=== PATIENT | female | born 1965 | race African-American/Black ===

== ENCOUNTER 2017-09-23 14:15 | Emergency (ER) | payer MEDICARE, MEDICAID ==
[2017-09-23 15:48] LABS: Hemoglobin 13.7 g/dL (12.0-16.0); Mean Corpuscular HGB CONC 29.2 g/dL (32.0-36.0); Mean Corpuscular Hemoglobin 27.2 pg (27.0-31.0); Mean Corpuscular Volume 93.1 fl (81.0-99.0); Mean Platelet Volume 8.1 fL (7.4-10.4); Platelet Count 237 thou/uL (130-400); RBC Distribution Width 15.2 % (11.5-14.5); Red Blood Cell (RBC) Count 5.03 mill/uL (4.20-5.40); White Blood Cell (WBC) Count 10.2 thou/uL (4.8-10.8)
[2017-09-23 16:06] LABS: Anisocytosis SLIGHT = 6-15 cells (100X) (0-5/hpf); Band 25 % (5-11); Lymphocytes 12 % (21-51); MDiff Complete? YES; Monocytes 9 % (0-10); Neutrophil 51 % (42-75); Ovalocytes SLIGHT = 2-5 cells (100X) (0-1/hpf); PLT Morphology Comment Appears Adequate; Polychromasia SLIGHT = 2-3 cells (100X) (0-2/hpf); Reactive Lymphocytes 3 % (0-10)
[2017-09-23 16:18] LABS: CKMB 2.5 ng/mL (0-6.6); Troponin I 0.041 ng/mL (< 0.028)
--- NOTE | 2017-09-23 16:31 | RAD ---
PORTABLE CHEST ONE VIEW: 09/23/2017 2:56 p.m. HISTORY: Dyspnea. COMPARISON: 03/01/2016 FINDINGS: The heart is enlarged. Chronic changes are again seen bilaterally. No lobar consolidation, pneumoth oraces, or large effusions are seen. Superimposed pulmonary vascular congestion may be present. POS: [facility]
[2017-09-23 16:38] LABS: ALT (SGPT) 11 U/L (8-55); AST (SGOT) 21 U/L (5-34); Albumin 4.1 g/dL (3.5-5.0); Alkaline Phosphatase 92 U/L (40-150); Anion Gap 17 mmol/L (10-20); BUN (Urea Nitrogen) 17 mg/dL (7.0-18.7); Bilirubin, Total 0.4 mg/dL (0.2-1.2); CK (CPK) 47 U/L (29-168); Calc. Creatinine Clearance 0 mL/min (70-130); Carbon Dioxide 31 mmol/L (22-29); Chloride 97 mmol/L (98-107); Estimated GFR-MDRD Greater than 90; Globulin 4.2 g/dL (2.4-3.5); Glucose 145 mg/dL (70-105); Potassium 4.8 mmol/L (3.5-5.1); Protein, Total 8.3 g/dL (6.0-8.3); Sodium 140 mmol/L (136-145)
== END 2017-09-23 17:36 | disposition home or self-care (01) ==
LOC: ERS 14:15
DX: D86.9 Sarcoidosis, unspecified (principal); I10 Essential (primary) hypertension; F41.9 Anxiety disorder, unspecified; F32.9 Major depressive disorder, single episode, unspecified
CPT/HCPCS: 71010; 80053; 82553; 83605; 84484; 85025; 87040; 93005; 94640; 94760; J7620

== ENCOUNTER 2017-09-25 14:22 | Inpatient (IN) | payer MEDICARE, MEDICAID ==
[2017-09-25] MEDS ORDERED: Albuterol Sulfate 2.5 mg/0.5 ml Neb ONE ×3 (14:38)
[2017-09-25] MEDS ORDERED: Albuterol Sulfate 2.5 mg/3 ml Neb ONE (14:39)
[2017-09-25 15:12] LABS: Hemoglobin 13.9 g/dL (12.0-16.0); INR-International Normal Ratio 1.3; Mean Corpuscular HGB CONC 29.1 g/dL (32.0-36.0); Mean Corpuscular Hemoglobin 27.2 pg (27.0-31.0); Mean Corpuscular Volume 93.6 fl (81.0-99.0); Mean Platelet Volume 8.4 fL (7.4-10.4); PTT 32.5 SEC (22.9-36.1); Platelet Count 274 thou/uL (130-400); Prothrombin Time 16.3 SEC (12.0-14.7); RBC Distribution Width 15.2 % (11.5-14.5); White Blood Cell (WBC) Count 22.3 thou/uL (4.8-10.8)
--- NOTE | 2017-09-25 15:14 | RAD ---
CHEST ONE VIEW: HISTORY: Respiratory distress. COMPARISON: Chest one view from 09/23/2017. FINDINGS: There are worsening diffuse air space opacities. There appears to be some cystic change or cavitatio n in the right upper lobe. No large pneumothorax. The cardiac silhouette is blurred. IMPRESSION: Worsening air space opacities throughout the lungs with possible cavitation in the right upper lobe. CT of the chest with contrast recommended. POS: [facility]
[2017-09-25 15:27] LABS: ALT (SGPT) 10 U/L (8-55); AST (SGOT) 18 U/L (5-34); Albumin 3.7 g/dL (3.5-5.0); Alkaline Phosphatase 82 U/L (40-150); Anion Gap 14 mmol/L (10-20); Anisocytosis SLIGHT = 6-15 cells (100X) (0-5/hpf); BUN (Urea Nitrogen) 24 mg/dL (7.0-18.7); Band 26 % (5-11); Bilirubin, Total 0.7 mg/dL (0.2-1.2); CK (CPK) 107 U/L (29-168); Calc. Creatinine Clearance 0 mL/min (70-130); Calcium 9.9 mg/dL (7.8-10.44); Carbon Dioxide 35 mmol/L (22-29); Chloride 98 mmol/L (98-107); Estimated GFR-MDRD 82; Globulin 4.4 g/dL (2.4-3.5); Glucose 188 mg/dL (70-105); Lipase 9 U/L (8-78); Lymphocytes 6 % (21-51); MDiff Complete? YES; Magnesium 2.1 mg/dL (1.6-2.6); Metamyelocyte 3 % (0-0); Monocytes 4 % (0-10); Neutrophil 53 % (42-75); Ovalocytes SLIGHT = 2-5 cells (100X) (0-1/hpf); PLT Morphology Comment Appears Adequate; Polychromasia SLIGHT = 2-3 cells (100X) (0-2/hpf); Potassium 4.3 mmol/L (3.5-5.1); Protein, Total 8.1 g/dL (6.0-8.3); Reactive Lymphocytes 8 % (0-10); Sodium 143 mmol/L (136-145); Target Cells SLIGHT = 2-5 cells (100X) (0-1/hpf)
[2017-09-25] MEDS ORDERED: methylPREDNISolone Sod Succ/PF 125 MG/2 ML VIAL ONE (15:29)
[2017-09-25] MEDS ORDERED: Sterile Water 10 ML ONE (15:30)
[2017-09-25 15:31] LABS: CKMB 3.7 ng/mL (0-6.6); Troponin I 0.045 ng/mL (< 0.028)
[2017-09-25 15:32] LABS: Digoxin 0.25 ng/mL (0.8-2.0)
[2017-09-25] MEDS ORDERED: FENTANYL IV SCH (16:00)
[2017-09-25] MEDS ORDERED: SODIUM CHLORIDE 0.9% IV SCH (16:00)
[2017-09-25 16:13] LABS: Actual Bicarbonate (HCO3a) 37.3 mEq/L (22-26); Base Excess (BEa) 7.3 mEq/L (0 (+/-) 2.5); Calcium, Ionized 1.2 mmol/L (1.12-1.30); Hematocrit-ABG 44.3 % (36.0-47.0); Hemoglobin (Hb) 12.7 g/dL (12.0-16.0); O2 Tension (PaO2) 54.2 mmHg (80.0-100.0); pH, Arterial 7.26 (7.35-7.45)
[2017-09-25 16:14] LABS: Analyzer IN Cardio ER; CO2 Tension 85.6 mmHg (35.0-45.0); Puncture Site RRA
[2017-09-25 16:23] LABS: Blood, Urine Trace (Negative); Clarity CLOUDY (Clear); Glucose, Urine (Dipstick) Negative (Negative); Leukocyte Trace (Negative); Nitrite Negative (Negative); Specific Gravity, Urine 1.035 (1.002-1.036)
[2017-09-25 16:27] LABS: Bacteria/HPF None Seen HPF (None Seen); WBC/HPF 0-3 HPF (0-3)
[2017-09-25] MEDS ORDERED: Cefepime 2 GM/10 ML SYR ONE (16:29)
[2017-09-25 16:30] LABS: Pathc Cast-AUWi Flag 5.55 (0-2.49)
[2017-09-25 16:39] LABS: Protein, Urine (Dipstick) > or equal to 300 mg/dL (Neg-Trace)
[2017-09-25 16:40] LABS: Bilirubin Moderate (Negative); Hyaline Casts/LPF 7-10 HYALINE CAST LPF (0-3 Hyaline); Other Casts/LPF 0-3 COARSE GRAN LPF (0-3 Hyaline)
[2017-09-25 16:41] LABS: Renal Epithelial 0-3 HPF (0-3); Transitional Epithelial 0-3 HPF (0-3)
[2017-09-25] MEDS ORDERED: Cefepime 2 GM, Syringe 2.5 ML in Sterile Water 10 ML SLOW IVP SCH (16:45)
[2017-09-25 17:22] LABS: Actual Bicarbonate (HCO3a) 32.5 mEq/L (22-26); Base Excess (BEa) 6.1 mEq/L (0 (+/-) 2.5); CO2 Tension 54.9 mmHg (35.0-45.0); Calcium, Ionized 1.1 mmol/L (1.12-1.30); Hematocrit-ABG 43.3 % (36.0-47.0); Hemoglobin (Hb) 12.7 g/dL (12.0-16.0); pH, Arterial 7.39 (7.35-7.45)
[2017-09-25 17:23] LABS: ALV-art Gradient 211.375 (0-20); Analyzer IN Cardio ER; Puncture Site RBA
[2017-09-25] MEDS ORDERED: Ondansetron ODT 4 MG TAB PO PRN (17:33)
[2017-09-25] MEDS ORDERED: Calcium Carbonate 500 MG ChewTAB PO PRN (17:33)
[2017-09-25] MEDS ORDERED: Acetaminophen 325 MG TAB PO PRN (17:33)
[2017-09-25] MEDS ORDERED: Labetalol HCl 100 MG/20 ML VIAL SLOW IVP PRN (17:39)
[2017-09-25] MEDS ORDERED: Sedation Protocol FS SCH (17:43)
[2017-09-25 18:03] LABS: Troponin I 0.063 ng/mL (< 0.028)
--- NOTE | 2017-09-25 18:46 | RAD ---
RADIOGRAPH ABDOMEN 1 VIEW: DATE: 09/25/17 TIME: 4:10 p.m. HISTORY: 51-year-old female status post NG tube placement. FINDINGS: The distal portion of an NG tube is visualized in the left upper quadrant, probably in the proximal t o mid stomach. Nonspecific bowel gas pattern. IMPRESSION: NG tube distal tip in left upper quadrant. POS: [facility]
[2017-09-25] MEDS ORDERED: DISCONTINUE PREVIOUS NARCOTIC PAIN MEDICATIONS AND BENZODIAZEPINES FS SCH (19:11)
[2017-09-25] MEDS ORDERED: Morphine 2 MG/ML SYRINGE SLOW IVP PRN (19:11)
[2017-09-25] MEDS: Piperacillin/Tazobactam 3.375 GM in Sodium Chloride 0.9% 100 ML IVPB SCH (19:29)
[2017-09-25] MEDS: Vancomycin HCl 1 GM in Premix Bag 1 BAG IVPB SCH (19:39)
--- NOTE | 2017-09-25 20:57 | RAD ---
ONE VIEW CHEST: 09/25/17 HISTORY: Status post line placement. COMPARISON: 09/25/17. FINDINGS: Portable upright chest demonstrates interval placement of endotracheal and nasogastric tubes. Interva l placement of right sided jugular catheter which is presumed to be in the expected region of the sup erior vena cava. Pneumothorax is not appreciated. Stable configuration of the cardiac silhouette. Sta ble multifocal opacities. No pneumothorax. IMPRESSION: 1. Lines and tubes as above. 2. Stable parenchymal opacities. No pneumothorax. POS: [facility]
[2017-09-25] MEDS: Sodium Chloride 0.9% 1,000 ML IV SCH (22:47)
[2017-09-25] MEDS: Propofol 1,000 MG/100 ML VIAL IV PRN (22:47)
--- NOTE | 2017-09-26 00:56 | HP-2 ---
CODE STATUS: FULL CODE. PRIMARY CARE PHYSICIAN: [facility]. ATTENDING: Helder Tian MD RESIDENT: Foster Moreno MD HISTORIAN: Patient's family and ER doctor. SPECIALIST: Dr. Rudy Beltran, Pulmonology. CHIEF COMPLAINT: Shortness of breath and cough. HISTORY OF PRESENT ILLNESS: This is a 51-year-old female with past medical history of sarcoidosis, diastolic CHF, and pulmonary hypertension who presented initially with shortness of breath and difficulty breathing. Patient was brought into the EMS after being alerted by family for difficulty breathing, received 3 nebs on route to the ER; if no improvement was noted, patient was tried on BiPAP in the ER with no improvement and was ultimately intubated by Dr. Cornelius admission. Patient received cefepime, Solu-Medrol, and Levaquin in the ER. PAST MEDICAL HISTORY: 1. Sarcoidosis. 2. Pulmonary hypertension. 3. Diastolic congestive heart failure (EF 55% to 60%). 4. Morbid obesity. 5. Anxiety. 6. Depression. 7. Chronic kidney disease, stage 2. PAST SURGICAL HISTORY: 1. x3. 2. Bilateral tubal ligation. 3. D and C x1. ALLERGIES: LISINOPRIL, CODEINE, BENZONATATE. MEDICATIONS: 1. Metformin 500 mg. 2. Depo-Medrol. 3. Digoxin 125 mcg. 4. Spironolactone 25 mg. 5. Tadalafil 20 mg b.i.d. 6. Prednisone 10 mg daily. 7. Macitentan 10 mg daily. 8. Losartan/hydrochlorothiazide 160/12.5 mg half tab daily. 9. Symbicort 160/4.5 two puffs daily. 10. Lasix 40 mg b.i.d. FAMILY HISTORY: Significant for sister with sarcoidosis. SOCIAL HISTORY: Denies tobacco, alcohol, or drug use. REVIEW OF SYSTEMS: Unable to obtain due to patient being intubated. PHYSICAL EXAMINATION: VITAL SIGNS: Blood pressure 155/99, pulse 112, respiratory rate 16, T-max 98.5 , pulse ox 96% on ventilation at SIMV mode. GENERAL: Patient is sedated and intubated, obese. HEENT: Pupils are equal, round, and reactive to light. Extraocular movements are unable to be assessed. Conjunctivae within normal limits. Oropharynx was unable to assess due to patient's status. NECK: Supple, without lymphadenopathy. CARDIOVASCULAR: The patient has tachycardic with regular rhythm. No murmurs appreciated. Radial pulses and pedal pulses are present. RESPIRATORY: The patient is ventilated. Bilateral rhonchi are noted with expiratory wheezes bilaterally. SKIN: Warm and dry without cyanosis. ABDOMEN: Soft and bowel sounds are present, however, unable to assess tenderness. EXTREMITIES: No clubbing, cyanosis, or edema is appreciated. MUSCULOSKELETAL: Structure within normal limits. Unable to assess tone, strength, and range of motion. NEUROLOGIC: Unable to assess neurologic status. Pupils are reactive. PSYCHIATRIC: The patient is sedated at this time. LABORATORY AND DIAGNOSTIC DATA: 1. CBC: White count 22.3, hemoglobin 13.9, hematocrit 37.8, platelets 274. 2. CMP: Sodium 143, potassium 4.3, chloride 98, bicarbonate 35, BUN 24, creatinine 0.9, calcium 9.9. 3. AST 18, ALT 10, alkaline phosphatase 82, total protein 8.1, albumin 3.7, T- bili 0.7. 4. PT 16.3, PTT 32.5. INR 1.3. 5. Lactate 1.8. 6. Magnesium 2.1. 7. Dig level 0.25. 8. CK 107, CK-MB 2.7, troponin 0.045, lipase 9, BNP 151. 9. Urinalysis shows trace blood, greater than 300 protein, trace leukocyte esterase, 15 ketones, 4-6 red cells, 0-3 white cells. 10. ABGs, pH of 7.68, pCO2 of 85, pO2 of 54, bicarbonate 37 on SIMV mode. 11. Chest x-ray shows worsening airspace opacities, possible right upper lobe cavitation. ASSESSMENT AND PLAN: This is a 51-year-old female presenting with shortness of breath. 1. Acute hypoxic and hypercarbic respiratory failure. We will admit to CCU. The patient intubated and we will continue sedation protocol and consult pump for management. Recommendations continue cap coverage with vancomycin and Zosyn at this time. We will check blood cultures and urine cultures. Continue DuoNebs scheduled as well as Solu-Medrol. 2. Pneumonia. Continue antibiotics following blood cultures, pulmonary was consulted, appreciate their recommendations to trend CBC and give light IV fluids at this time. 3. Sarcoidosis. We will continue Solu-Medrol and home medications once tolerating p.o. 4. Diastolic congestive heart failure. We will check an echocardiogram that has been a few years since her last one. Monitor fluids closely for respiratory status. 5. Chronic kidney disease. The patient is currently at baseline. Continue to monitor. 6. Elevated troponin, likely secondary to demand ischemia given the patient's tachycardia. Trending cardiac enzymes. Recheck EKG in the morning. 7. Anxiety, depression. Continue sedation protocol for now. Resume home medications once more awake. 8. Prophylaxis. PPI and Lovenox. DISPOSITION AND LENGTH OF HOSPITAL STAY: At least 3 midnights. Symptomatic medications will be provided. History and physical exam as well as management were discussed with Dr. Tian. AWILDA
[2017-09-26] MEDS: Piperacillin/Tazobactam 3.375 GM in Sodium Chloride 0.9% 100 ML IVPB SCH ×3 (01:54→13:39)
[2017-09-26] MEDS: Propofol 1,000 MG/100 ML VIAL IV PRN ×4 (04:09→22:10)
[2017-09-26] MEDS: Sodium Chloride 0.9% 1,000 ML IV SCH ×2 (04:18→15:26)
[2017-09-26 04:37] LABS: ALT (SGPT) 8 U/L (8-55); AST (SGOT) 12 U/L (5-34); Albumin 2.8 g/dL (3.5-5.0); Alkaline Phosphatase 58 U/L (40-150); Anion Gap 13 mmol/L (10-20); BUN (Urea Nitrogen) 33 mg/dL (7.0-18.7); Bilirubin, Total 0.7 mg/dL (0.2-1.2); Calc. Creatinine Clearance 92 mL/min (70-130); Calcium 9.2 mg/dL (7.8-10.44); Carbon Dioxide 34 mmol/L (22-29); Chloride 102 mmol/L (98-107); Estimated GFR-MDRD 60; Globulin 3.6 g/dL (2.4-3.5); Glucose 185 mg/dL (70-105); Protein, Total 6.4 g/dL (6.0-8.3); Sodium 145 mmol/L (136-145)
[2017-09-26 05:11] LABS: Band 15 % (5-11); Hemoglobin 11.3 g/dL (12.0-16.0); Lymphocytes 10 % (21-51); MDiff Complete? YES; Mean Corpuscular HGB CONC 29.9 g/dL (32.0-36.0); Mean Corpuscular Hemoglobin 27.5 pg (27.0-31.0); Mean Corpuscular Volume 91.9 fl (81.0-99.0); Mean Platelet Volume 7.9 fL (7.4-10.4); Metamyelocyte 1 % (0-0); Monocytes 6 % (0-10); Neutrophil 67 % (42-75); Nucleated RBC 1 % (0); PLT Morphology Comment Appears Adequate; Platelet Count 241 thou/uL (130-400); RBC Distribution Width 14.7 % (11.5-14.5); Reactive Lymphocytes 1 % (0-10); Red Blood Cell (RBC) Count 4.13 mill/uL (4.20-5.40); White Blood Cell (WBC) Count 17.3 thou/uL (4.8-10.8)
--- NOTE | 2017-09-26 06:02 | CON ---
DATE OF CONSULTATION: 09/25/2017 HISTORY OF PRESENT ILLNESS: Ms. Mc is a 51-year-old female. She was seen in the emergency dep artment on 09/24/2017 with complaints of shortness of breath. She is chronically on oxygen at home. She was discharged with diagnosis of sarcoid exacerbation, prescribed nebulizer medicine. She has been seen by my associate in the past. Chest radiograph was done on the . I reviewed this film and thought maybe there were some more i nfiltrative changes on the right. She subsequently presented back on the (today) with more shortness of breath, put on BiPAP, and w as subsequently intubated. Chest radiograph shows progression of bilateral infiltrates in my opinion. PAST MEDICAL HISTORY: 1. Remarkable for sarcoid. 2. Pulmonary hypertension. 3. Diabetes. 4. Chronic kidney disease. 5. History of diastolic dysfunction. 6. History of obesity. 7. Cor pulmonale felt to be secondary to her advanced sarcoid. According to Dr. Beltran's notes in 2014, she had been referred down to [facility] for transplant evaluation . When I saw her back in in the hospital, she could walk only about 30 feet without getting short of breath. She has not been hospitalized since then per reviewing records. PAST SURGICAL HISTORY: She has had three C-sections and tubal ligation as well as a D and C. FAMILY HISTORY: Remarkable for sister also with sarcoid. SOCIAL HISTORY: She is nonsmoker, nondrinker, nondrug user. ALLERGIES: Reported to LISINOPRIL, CODEINE, and TESSALON PERLES. MEDICATIONS: Have been reviewed. REVIEW OF SYSTEMS: Not obtainable because she is intubated. There is no family in the room when I e valuated there. PHYSICAL EXAMINATION: VITAL SIGNS: She is afebrile, heart rates in the 90s. Blood pressure 118/70, respiratory rate is in the 20s. Oximetry is 98%. HEENT: Pupils equally react. Sclerae is anicteric. Extraocular movements are full. NECK: Supple. LUNGS: Remarkable for distant breath sounds. She has a long expiratory phase. HEART: Regular rhythm. S1 and S2 are normal. No gallops heard. ABDOMEN: Soft, without guarding, rigidity. EXTREMITIES: Without asymmetry. LABORATORY DATA: Chest radiograph is as reviewed above. White count 22.3, hemoglobin 13.9, platelet s 274. Sodium 143, potassium 4.3, chloride 98, bicarbonate 35, BUN 24, creatinine 0.8. Blood gas 7. 26, CO2 of 85, pO2 of 54 after intubation, 7.39, CO2 of 54, pO2 81. IMPRESSION: 1. Advanced sarcoidosis with interstitial fibrosis and pulmonary hypertension. 2. Probable community-acquired pneumonia on top of her sarcoid. 3. Bronchospasm/reactive airways associated with this which has aggravated and increased work of jamilah athing. The ventilator had to be adjusted to a higher flow to shortened her inspiratory time to allo w for complete exhalation. I suspect she will remain ventilated for several days if not longer. I will meet with the family as soon as they are available. Critical care time 35 minutes.
--- NOTE | 2017-09-26 07:18 | PDOC.FM ---
- Subjective Subjective: Pt seen at bedside in NAD, no family at bedside. Intubated and sedated. LUCIANO overnight. Pt responds to commands. - Objective MAR Reviewed: Yes Vital Signs & Weight: Vital Signs (12 hours) Temp Pulse Resp Pulse Ox 09/26/17 06:00 22 H 09/26/17 04:00 98.5 F 22 H 09/26/17 02:06 80 09/26/17 02:05 80 22 H 96 09/26/17 00:00 98.2 F 22 H 09/25/17 22:32 91 09/25/17 22:29 94 22 H 97 09/25/17 20:00 98.8 F 91 22 H 98 09/25/17 19:53 89 Most Recent Monitor Data Heart Rate from ECG 71 NIBP 110/65 NIBP BP-Mean 76 Respiration from ECG 22 SpO2 94 I&O: 09/25/17 09/26/17 09/27/17 06:59 06:59 06:59 Intake Total 1280 Output Total 355 Balance 925 Result Diagrams: 09/26/17 03:30 09/26/17 03:30 Phys Exam - Physical Examination Constitutional: NAD intubated and sedated HEENT: PERRLA Respiratory: wheezing present scant wheezing, coarse breath sounds BL Cardiovascular: RRR, no significant murmur Gastrointestinal: soft, positive bowel sounds Musculoskeletal: pulses present Neurological: non-focal GCS11 ([id number]) Dx/Plan (1) Acute on chronic respiratory failure with hypoxia and hypercapnia Code(s): J96.21 - ACUTE AND CHRONIC RESPIRATORY FAILURE WITH HYPOXIA; J96.22 - ACUTE AND CHRONIC RESPIRATORY FAILURE WITH HYPERCAPNIA Status: Acute Plan: -pt has long standing hx of end stage sarcoidosis and presented to ER with complaints of cough and SOB -initially was tolerated bipap but eventually required intubation -pulmonology on board, recs greatly appreciated -currently on SIMV rate 22, fio2 55, peep 8 -continue to monitor closely (2) CAP (community acquired pneumonia) Code(s): J18.9 - PNEUMONIA, UNSPECIFIED ORGANISM Status: Acute Qualifiers: Laterality: right Lung location: upper lobe of lung Qualified Code(s): J18.1 - Lobar pneumonia, unspecified organism Plan: -RUL PNA on CXR -continue broad spectrum abx and attempt to deescalate therapy -urine strep pneumoniae Ag negative -continue to monitor and trend CBC -await blood and urine culture results (3) MICHEL (acute kidney injury) Code(s): N17.9 - ACUTE KIDNEY FAILURE, UNSPECIFIED Status: Acute Plan: -likely prerenal secondary to hypovolemia -UOP 15-45cc/hr -with poor UOP, bolus 1L and continue to monitor (4) Sarcoidosis Code(s): D86.9 - SARCOIDOSIS, UNSPECIFIED Status: Chronic (5) Pulmonary hypertension associated with sarcoidosis Code(s): I27.29 - OTHER SECONDARY PULMONARY HYPERTENSION; D86.9 - SARCOIDOSIS, UNSPECIFIED Status: Chronic - Plan Plan: dispo: Pt stable. Pulmonology recs greatly appreciated. Treating for CAP with broad abx. Await culture results and deescalate when possible. Continue to monitor closely.
--- NOTE | 2017-09-26 07:44 | PRG ---
DATE OF SERVICE: 09/26/2017 SUBJECTIVE: The patient remains mechanically ventilated. OBJECTIVE: VITAL SIGNS: Blood pressure 108/66, heart rate 76, respiratory rate 22, oximetry is 96. CHEST: Bilateral equal breath sounds. Faint wheezes are heard. HEART: Regular rhythm. S1 and S2 are normal. ABDOMEN: Soft. EXTREMITIES: Without asymmetry. LABORATORY DATA AND X-RAY FINDINGS: White count 17.3, hemoglobin 11.3, platelets 241,000. Sodium 14 5, potassium 4, chloride 102, bicarbonate 34, BUN 32, creatinine 1.16, glucose 185. Chest x-ray is b eing done. As I dictate this, I will review her radiograph. Blood gas is also pending. IMPRESSION: 1. Community-acquired pneumonia. 2. Underlying sarcoidosis, which is advanced with pulmonary fibrosis and chronic hypoxemia. 3. Acute respiratory failure on top of chronic respiratory failure and chronic hypoxemia requiring h ome oxygen. 4. Anemia of chronic disease. 5. Prerenal azotemia that has improved. Her fluid balance is positive 965. PLAN: Continue mechanical ventilation and empiric antimicrobial therapy. Deescalate antibiotics as she improves. Continue with deep venous thrombosis prophylaxis with Lovenox and place her on Pepcid, now she is mechanically ventilated. Critical care time was 30 minutes.
[2017-09-26] MEDS: Famotidine/PF 20 mg/2ml Vial SLOW IVP SCH ×2 (08:34→19:59)
[2017-09-26] MEDS: Vancomycin HCl 1 GM in Premix Bag 1 BAG IVPB SCH ×2 (08:34→20:02)
[2017-09-26 08:38] LABS: Actual Bicarbonate (HCO3a) 32.1 mEq/L (22-26); Base Excess (BEa) 6.8 mEq/L (0 (+/-) 2.5); CO2 Tension 49.4 mmHg (35.0-45.0); Calcium, Ionized 1.2 mmol/L (1.12-1.30); Hematocrit-ABG 39.6 % (36.0-47.0); Hemoglobin (Hb) 11.4 g/dL (12.0-16.0); O2 Tension (PaO2) 84.3 mmHg (80.0-100.0); pH, Arterial 7.43 (7.35-7.45)
--- NOTE | 2017-09-26 08:38 | RAD ---
PORTABLE CHEST: History: Respiratory distress. Comparison: Prior day's exam. FINDINGS: Endotracheal and NG tubes as well as right sided central line are unchanged in position. Interstitial alveolar lung changes are stable. Heart size is enlarged. IMPRESSION: Stable exam. POS: [facility]
[2017-09-26 08:39] LABS: Puncture Site RR
[2017-09-26] MEDS ORDERED: Enoxaparin Sodium 40 MG/0.4 ML SYRINGE SC SCH (09:00)
[2017-09-26] MEDS ORDERED: FLU VACC QS2017-18 36 mo. & older 0.5 ML SYRINGE IM ONE (09:00)
[2017-09-26 09:02] LABS: Strep pneumo Urine Ag NEGATIVE (NEGATIVE)
[2017-09-26] MEDS ORDERED: Dextrose 5% in Water 1,000 ML IV PRN (09:10)
[2017-09-26] MEDS ORDERED: Insulin Regular 300 UNITS/3 ML VIAL SC PRN (09:10)
[2017-09-26] MEDS ORDERED: Sodium Chloride 0.9% 1,000 ML IV SCH (09:15)
[2017-09-26] MEDS: HumaLOG 300 UNITS/3 ML VIAL SC PRN ×2 (10:21→16:22)
--- NOTE | 2017-09-26 10:35 | PRG ---
DATE OF SERVICE: 09/26/2017 SUBJECTIVE: Ms. Mc is a pleasant 51-year-old black female with a long history of sarcoidosis. She has been seen in our ER several days ago with shortness of breath and was sent home on prescribe d nebulizer medication. She returned on 09/25/2017 with progressive shortness of breath. She was in itially placed on BiPAP and subsequently intubated and admitted to the Intensive Care Unit. She is a lso being followed by the solidworks designer for her sarcoidosis and intubation with mechanical ventilation. She also has pulmonary hypertension related to her sarcoidosis. She possibly has a community-acquired pneumonia on top of her sarcoidosis and is also being treated w ith antibiotics. We will follow with the solidworks designer.
[2017-09-26] MEDS: Piperacillin-Tazo-Dextrose,Iso 3.375 GM in Premix Bag 1 BAG IVPB SCH ×2 (13:42→20:02)
[2017-09-26] MEDS: Heparin 5,000 UNITS/ML VIAL SC SCH ×2 (15:20→19:59)
[2017-09-27] MEDS: Sodium Chloride 0.9% 1,000 ML IV SCH ×3 (00:12→21:14)
[2017-09-27] MEDS: Piperacillin-Tazo-Dextrose,Iso 3.375 GM in Premix Bag 1 BAG IVPB SCH ×4 (02:05→20:36)
[2017-09-27 05:01] LABS: #Basophils 0.1 thou/uL (0.0-0.2); #Lymphocytes 0.9 thou/uL (1.20-3.40); #Monocytes 0.7 thou/uL (0.11-0.59); #Neutrophils 12.4 thou/uL (1.40-6.50); %Basophils 0.5 % (0.0-1.0); %Eosinophils 0.1 % (0.0-10.0); %Lymphocytes 6.2 % (21.0-51.0); %Monocytes 5.2 % (0.0-10.0); Hemoglobin 10.6 g/dL (12.0-16.0); Mean Corpuscular HGB CONC 30.6 g/dL (32.0-36.0); Mean Corpuscular Hemoglobin 27.8 pg (27.0-31.0); Mean Corpuscular Volume 90.7 fl (81.0-99.0); Mean Platelet Volume 8.4 fL (7.4-10.4); Platelet Count 263 thou/uL (130-400); RBC Distribution Width 14.9 % (11.5-14.5); Red Blood Cell (RBC) Count 3.83 mill/uL (4.20-5.40); White Blood Cell (WBC) Count 14.1 thou/uL (4.8-10.8)
[2017-09-27 05:21] LABS: Anion Gap 13 mmol/L (10-20); BUN (Urea Nitrogen) 35 mg/dL (7.0-18.7); Calc. Creatinine Clearance 85 mL/min (70-130); Calcium 9.1 mg/dL (7.8-10.44); Carbon Dioxide 30 mmol/L (22-29); Chloride 105 mmol/L (98-107); Estimated GFR-MDRD 55; Glucose 126 mg/dL (70-105); Potassium 3.2 mmol/L (3.5-5.1); Sodium 145 mmol/L (136-145)
[2017-09-27] MEDS ORDERED: ISOVUE-370 76%-LOCM 1 ML ONE (06:13)
[2017-09-27] MEDS: Propofol 1,000 MG/100 ML VIAL IV PRN ×3 (06:41→18:05)
[2017-09-27 07:23] LABS: Actual Bicarbonate (HCO3a) 28.5 mEq/L (22-26); Base Excess (BEa) 4.5 mEq/L (0 (+/-) 2.5); CO2 Tension 40.6 mmHg (35.0-45.0); Calcium, Ionized 1.2 mmol/L (1.12-1.30); Hemoglobin (Hb) 10.1 g/dL (12.0-16.0); O2 Tension (PaO2) 80.8 mmHg (80.0-100.0); pH, Arterial 7.47 (7.35-7.45)
[2017-09-27 07:37] LABS: Puncture Site RR
[2017-09-27] MEDS: Heparin 5,000 UNITS/ML VIAL SC SCH ×3 (08:06→20:41)
--- NOTE | 2017-09-27 08:18 | RAD ---
PORTABLE UPRIGHT FRONTAL CHEST RADIOGRAPH: Date: 09-27-17 Comparison: 09-26-17 History: Ventilated patient. FINDINGS: There is an endotracheal tube in stable proper position, terminating approximately 2 cm above the car roberto. There is a stable right sided vascular catheter. There is mass like focal opacity noted in bilat eral perihilar regions, stable. There is interstitial and alveolar opacity in bilateral perihilar reg ions, right greater than left, nonspecific. IMPRESSION: Persistent mass like opacity in bilateral perihilar regions. Etiology is uncertain. This may represen t infectious pneumonitis/aspiration. Underlying lymphadenopathy and/or mass lesion is not excluded. C T examination of the chest advised when the patient is able for full assessment. All findings may be on the basis of patient's history of sarcoidosis. POS: [facility]
[2017-09-27 08:20] LABS: Vancomycin, Trough 20.4 ug/mL
[2017-09-27] MEDS: Famotidine/PF 20 mg/2ml Vial SLOW IVP SCH (10:25)
[2017-09-27] MEDS ORDERED: Famotidine 40 MG/4 ML VIAL SLOW IVP SCH (10:30)
[2017-09-27] MEDS: Vancomycin HCl 1 GM in Premix Bag 1 BAG IVPB SCH ×2 (10:41→21:13)
--- NOTE | 2017-09-27 11:34 | PDOC.FM ---
- Subjective Subjective: Patient intubated. She is requesting extubation. She acknowledges some LLQ belly pain. - Objective MAR Reviewed: Yes Vital Signs & Weight: Vital Signs (12 hours) Temp Pulse Resp BP Pulse Ox 09/27/17 11:11 72 129/75 09/27/17 10:00 22 H 09/27/17 08:00 99.3 F 22 H 09/27/17 07:53 99.3 F 104 H 22 H 99 09/27/17 07:17 90 112/62 09/27/17 06:00 22 H 09/27/17 04:00 98.2 F 22 H 09/27/17 02:31 76 09/27/17 02:30 89 22 H 99 09/27/17 02:00 22 H 09/27/17 00:00 98.9 F 09/26/17 23:44 59 L 09/26/17 23:36 22 H Weight Admit Weight 99.337 kg Weight 99.7 kg Most Recent Monitor Data Heart Rate from ECG 70 NIBP 129/75 NIBP BP-Mean 94 Respiration from ECG 22 SpO2 99 I&O: 09/26/17 09/27/17 09/28/17 06:59 06:59 06:59 Intake Total 1280 3066.2 0 Output Total 355 1186 316 Balance 925 1880.2 -316 Result Diagrams: 09/27/17 03:30 09/27/17 03:30 Phys Exam - Physical Examination Constitutional: NAD diffuse wheezing Cardiovascular: RRR, no significant murmur distended and firm, hypoactive BS, mildly tender in LLQ Musculoskeletal: no edema Neurological: moves all 4 limbs Skin: cap refill <2 seconds Dx/Plan (1) Acute on chronic respiratory failure with hypoxia and hypercapnia Code(s): J96.21 - ACUTE AND CHRONIC RESPIRATORY FAILURE WITH HYPOXIA; J96.22 - ACUTE AND CHRONIC RESPIRATORY FAILURE WITH HYPERCAPNIA Status: Chronic Plan: 2/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 question if ABX can be deescalated today to CAP coverage with rocephin and zithromax or levaquin alone. ABG improved, will await pulm recs for extubation. (2) CAP (community acquired pneumonia) Code(s): J18.9 - PNEUMONIA, UNSPECIFIED ORGANISM Status: Acute Qualifiers: Laterality: right Lung location: upper lobe of lung Qualified Code(s): J18.1 - Lobar pneumonia, unspecified organism Plan: possible deescalate abx to CAP coverage. Discuss with pulm (3) MICHEL (acute kidney injury) Code(s): N17.9 - ACUTE KIDNEY FAILURE, UNSPECIFIED Status: Acute Plan: Will bolus 500 ml today and repeat bmp in AM. adequate UOP (40 ml/hr yesterday) . (4) Pulmonary hypertension associated with sarcoidosis Code(s): I27.29 - OTHER SECONDARY PULMONARY HYPERTENSION; D86.9 - SARCOIDOSIS, UNSPECIFIED Status: Chronic (5) Hypertension Code(s): I10 - ESSENTIAL (PRIMARY) HYPERTENSION Status: Chronic Plan: well controlled. (6) Sarcoidosis Code(s): D86.9 - SARCOIDOSIS, UNSPECIFIED Status: Chronic
[2017-09-27] MEDS ORDERED: Potassium Chloride 40 MEQ in Premix Bag 1 BAG IVPB SCH (12:30)
[2017-09-27] MEDS ORDERED: Sodium Chloride 0.9% 500 ML IV SCH (12:30)
--- NOTE | 2017-09-27 12:39 | ADD-PRG ---
DATE OF SERVICE: 09/27/2017 This is an addendum to the note of Dr. Anabel Wallace. Ms. Mc is on the ventilator. She is awake and alert. She appears to be in no distress, but he r abdomen appears quite distended. It is tympanic, but minimally tender. No guarding or rebound are noted. Her labs this morning continued to show improvement. Sodium is 145, potassium is 3.2, chloride 105, bicarbonate is 30, BUN is 35, creatinine 1.26. Blood glucose is 126. CBC: White count has dropped to 14,000 from 22,000. Her hemoglobin is 10.6, hematocrit is 34.7 with an MCV of 91. Her vital signs remain stable. Clinically, she seems to be doing well except for the abdominal distention. We will get a flat plate upright of the abdomen. Depending on the findings on results, we may consider a CT of the abdomen.
--- NOTE | 2017-09-27 13:31 | RAD ---
SUPINE FRONTAL RADIOGRAPH ABDOMEN: DATE: 09/27/17. COMPARISON: 09/25/17. HISTORY: Abdominal distention, left lower quadrant tenderness, hypoactive bowel sounds. FINDINGS: There is gas throughout bowel within the abdomen and pelvis, likely representing a combination of gas within the stomach, small bowel, and large bowel. Supine imaging limits assessment for small bowel obstruction and free intraperitoneal air. There is a nasogastric tube terminating in the right upper quadrant. IMPRESSION: Mild diffuse gaseous distention of bowel throughout the abdomen/pelvis, a pattern most consistent wit h a degree of ileus. POS: [facility]
[2017-09-27] MEDS: Lorazepam 2 MG/ML VIAL SLOW IVP PRN (20:42)
[2017-09-27] MEDS: Famotidine 40 MG/4 ML VIAL SLOW IVP SCH (21:09)
[2017-09-27] MEDS: Ondansetron HCl/PF 4 MG/2 ML Vial IVP PRN (22:00)
--- NOTE | 2017-09-27 23:18 | PRG ---
DATE OF SERVICE: 09/27/2017 OBJECITVE: VITAL SIGNS: Ms. Mc is afebrile, heart rate is 81, blood pressure 132/93 this evening. Intake and output for the last 24 hours is positive 1880. LUNGS: Coarse equal breath sounds. HEART: Regular rhythm. ABDOMEN: Soft. EXTREMITIES: Without asymmetry. LABORATORY DATA: White count 14.1, hemoglobin 10.6, platelets 263,000. Sodium 145, potassium 3.2, c hloride 105, bicarbonate 30, BUN 35, creatinine 1.26, pH 7.47, CO2 of 40, PO2 of 80. Chest radiograp h reviewed by me shows predominantly right upper lobe infiltrate. IMPRESSION: 1. Pneumonia, community acquired. 2. Underlying interstitial lung disease secondary to old sarcoidosis. 3. 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 4. Respiratory failure, not weanable at this time. I interacted with her today. She moves all her extremities and I explained to her that she will probably be ventilated for a few days and she nodded that she understood. 5. Pulmonary hypertension secondary to advanced lung disease. 6. Diabetes. 7. Chronic kidney disease. 8. History of diastolic dysfunction. 9. Obesity. 10. History of a transplant evaluation in the past. PLAN: Continue supportive care with slow weaning. We will need to keep her hydrated from a renal st andpoint but watch for evidence of pulmonary third spacing. At this point in time, she appears to be stable. Critical care time was 30 minutes.
--- NOTE | 2017-09-27 23:59 | CT ---
EXAM: ABDOMEN CT WITH CONTRAST PELVIC CT WITH CONTRAST 09/27/17 HISTORY: Abnormal abdomen radiograph. Possible bowel obstruction or ileus. COMPARISON: None. CORRELATION: One view abdomen 09/27/17. TECHNIQUE: An abdomen and pelvic CT are performed with IV contrast. Enteric contrast was not administered. Coron al reformatted images are submitted for interpretation. FINDINGS: ABDOMEN CT: There are patchy opacities which may represent bilateral lower lobe atelectasis or infiltrate. Heart is enlarged. There is no significant pericardial fluid. The descending thoracic aorta and abdominal a ammy have a normal caliber. No periaortic fat stranding. CT evidence of cholelithiasis. There may be mild induration of the pericholecystic fat. Correlate cli nically for cholecystitis with gallbladder ultrasound. Limited evaluation of solid organs, despite ad ministering IV contrast. There is suboptimal enhancement of the solid organs despite administering IV contrast. There is suboptimal enhancement of the solid organs. Beam attenuation artifact with the pa tient's arms at his side also limits evaluation. Grossly, the liver is unremarkable. Mild lobulation of the spleen, nonspecific. Mild pancreatic atrophy. Symmetric enhancement of the kidneys and adrenal glands. Bilaterally, no obstructive uropathy. Nonspecific periportal lymph node measuring 1.8 cm. No gastrohepatic or retrocrural lymphadenopathy. No mesenteric mass, free air or free fluid. There is a ventral abdominal wall hernia containing mesen teric fat. Limited evaluation of the alimentary canal due to lack of oral contrast. Nasogastric tube terminates in the proximal stomach. There are multiple decompressed loops of small bowel. No evidence of small b owel obstruction. Ileocecal junction is normal. Appendix is not appreciated. Nevertheless, no inflamm ation at the cecal apex. There is predominantly fluid attenuation and air throughout the colon. The c ecum, ascending colon and transverse colon have the majority of the air. The majority of the fluid is noted in the right hemicolon. There is also some fluid attenuation in the left hemicolon. The degree of air attenuation in the left hemicolon is less and is presumed to be due to patient position. Ther e is a small amount of air attenuation in the proximal sigmoid colon. Mid to distal sigmoid colon are decompressed. Air is noted in the rectum. PELVIC CT: Uterus and adnexal structures are unremarkable. there is a small amount of free fluid in the pelvis. Urinary bladder is decompressed due to Dahl catheterization. IMPRESSION: 1. No evidence of bowel obstruction. 2. Nonspecific air attenuation noted in the colon which may be due to patient position. There is components of air and fluid throughout the entire colon. The left hemicolon is decompressed and is p resumed to be due to patient position with air predominantly in the transverse colon which is a nonde pendent portion of the colon while the patient is supine. 3. CT evidence of cholelithiasis with findings that are equivocal for cholecystitis. Gallbladder ultrasound is recommended. 4. Nonspecific lobulation of the spleen. 5. Patchy opacities in the lung parenchyma which may be due to atelectasis or infiltrate. Contin ued radiographic surveillance is recommended. POS: TEJ
[2017-09-28] MEDS: Scopolamine 1.5 mg/72 hour Patch TD SCH (00:15)
[2017-09-28] MEDS: Propofol 1,000 MG/100 ML VIAL IV PRN ×5 (00:16→18:31)
[2017-09-28] MEDS: Piperacillin-Tazo-Dextrose,Iso 3.375 GM in Premix Bag 1 BAG IVPB SCH ×4 (01:35→20:09)
[2017-09-28 05:58] LABS: #Basophils 0.1 thou/uL (0.0-0.2); #Lymphocytes 1.6 thou/uL (1.20-3.40); #Monocytes 0.7 thou/uL (0.11-0.59); #Neutrophils 8.5 thou/uL (1.40-6.50); %Basophils 0.9 % (0.0-1.0); %Eosinophils 0.1 % (0.0-10.0); %Lymphocytes 14.3 % (21.0-51.0); %Monocytes 6.5 % (0.0-10.0); %Neutrophils 78.2 % (42.0-75.0); Hemoglobin 10.4 g/dL (12.0-16.0); Mean Corpuscular HGB CONC 30.6 g/dL (32.0-36.0); Mean Corpuscular Hemoglobin 27.7 pg (27.0-31.0); Mean Corpuscular Volume 90.5 fl (81.0-99.0); Mean Platelet Volume 8.1 fL (7.4-10.4); Platelet Count 257 thou/uL (130-400); RBC Distribution Width 14.9 % (11.5-14.5); Red Blood Cell (RBC) Count 3.74 mill/uL (4.20-5.40); White Blood Cell (WBC) Count 10.9 thou/uL (4.8-10.8)
[2017-09-28 06:19] LABS: Anion Gap 13 mmol/L (10-20); BUN (Urea Nitrogen) 27 mg/dL (7.0-18.7); Calc. Creatinine Clearance 107 mL/min (70-130); Calcium 8.9 mg/dL (7.8-10.44); Carbon Dioxide 27 mmol/L (22-29); Chloride 108 mmol/L (98-107); Estimated GFR-MDRD 70; Glucose 87 mg/dL (70-105); Potassium 3.2 mmol/L (3.5-5.1); Sodium 145 mmol/L (136-145)
[2017-09-28] MEDS: Sodium Chloride 0.9% 1,000 ML IV SCH ×2 (07:01→16:55)
[2017-09-28 07:19] LABS: Actual Bicarbonate (HCO3a) 27.8 mEq/L (22-26); Base Excess (BEa) 1.7 mEq/L (0 (+/-) 2.5); CO2 Tension 50.6 mmHg (35.0-45.0); Calcium, Ionized 1.2 mmol/L (1.12-1.30); Hematocrit-ABG 34.5 % (36.0-47.0); Hemoglobin (Hb) 10.2 g/dL (12.0-16.0); O2 Tension (PaO2) 62.7 mmHg (80.0-100.0); Puncture Site RRA; pH, Arterial 7.36 (7.35-7.45)
--- NOTE | 2017-09-28 08:50 | RAD ---
PORTABLE AP CHEST: Date: 09-28-17 History: On ventilated. Follow up evaluation. Comparison: 09-27-17 FINDINGS: Endotracheal tube and right internal jugular central venous catheters remain in place. There has been interval placement of a nasogastric tube which overlies the left upper quadrant, the distal tip is n ot completely imaged but likely overlies the body of the stomach. Mass like opacities are again seen in the perihilar regions bilaterally, larger in size on the right. Stable from the prior exam. Previo usly noted interstitial and alveolar opacity in the bilateral hilar regions is also again present, mo re prominent on the right. Stable biapical pleural based densities are also again present. Given diff erences in technique, there has been no significant additional interval change from the prior study. IMPRESSION: 1. Interval placement of a nasogastric tube. The remaining lines and tubes are stable in position. 2. Remainder of the chest is overall stable when compared to prior study with persistent mass like op acities in the bilateral perihilar regions as well as increased interstitial and alveolar densities g reater in the right upper lobe, with stable pleural based densities in each lung apex. CT examination would be helpful for further evaluation assessment. POS: TEJ
[2017-09-28] MEDS: Vancomycin HCl 1 GM in Premix Bag 1 BAG IVPB SCH (09:01)
[2017-09-28] MEDS: Heparin 5,000 UNITS/ML VIAL SC SCH ×3 (09:02→20:10)
[2017-09-28] MEDS: Famotidine 40 MG/4 ML VIAL SLOW IVP SCH ×2 (09:02→20:10)
--- NOTE | 2017-09-28 11:26 | PDOC.FM ---
- Subjective Subjective: Patient intubated and resting this morning. She did vomit overnight apparently and a CT performed overnight with air through colon. - Objective MAR Reviewed: Yes Vital Signs & Weight: Vital Signs (12 hours) Temp Pulse Resp BP Pulse Ox 09/28/17 10:58 73 107/67 09/28/17 10:00 22 H 09/28/17 08:23 75 113/72 09/28/17 08:00 22 H 09/28/17 07:01 98.9 F 69 22 H 97 09/28/17 07:00 98.9 F 09/28/17 06:00 22 H 09/28/17 04:00 98.9 F 22 H 09/28/17 02:07 74 09/28/17 02:06 68 22 H 98 09/28/17 02:00 22 H 09/28/17 00:00 99.5 F 22 H Weight Admit Weight 99.337 kg Weight 102 kg Most Recent Monitor Data Heart Rate from ECG 76 NIBP 122/76 NIBP BP-Mean 84 Respiration from ECG 22 SpO2 97 I&O: 09/27/17 09/28/17 09/29/17 06:59 06:59 06:59 Intake Total 3066.2 3435 Output Total 1186 2341 426 Balance 1880.2 1094 -426 Result Diagrams: 09/28/17 05:10 09/28/17 05:10 Phys Exam - Physical Examination Constitutional: NAD diffuse wheezing throughout lung samayoa Cardiovascular: RRR, no significant murmur Gastrointestinal: soft, non-tender distended with hypoactive bowel sounds Musculoskeletal: no edema Neurological: non-focal, moves all 4 limbs Psychiatric: normal affect Dx/Plan (1) Acute on chronic respiratory failure with hypoxia and hypercapnia Code(s): J96.21 - ACUTE AND CHRONIC RESPIRATORY FAILURE WITH HYPOXIA; J96.22 - ACUTE AND CHRONIC RESPIRATORY FAILURE WITH HYPERCAPNIA Status: Chronic Plan: 2/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 (2) CAP (community acquired pneumonia) Code(s): J18.9 - PNEUMONIA, UNSPECIFIED ORGANISM Status: Acute Qualifiers: Laterality: right Lung location: upper lobe of lung Qualified Code(s): J18.1 - Lobar pneumonia, unspecified organism Plan: recommend abx to either levaquin or rocephin and zithromax. wean off vent per pulm. (3) MICHEL (acute kidney injury) Code(s): N17.9 - ACUTE KIDNEY FAILURE, UNSPECIFIED Status: Resolved (4) Pulmonary hypertension associated with sarcoidosis Code(s): I27.29 - OTHER SECONDARY PULMONARY HYPERTENSION; D86.9 - SARCOIDOSIS, UNSPECIFIED Status: Chronic (5) Hypertension Code(s): I10 - ESSENTIAL (PRIMARY) HYPERTENSION Status: Chronic Plan: well controlled. (6) Sarcoidosis Code(s): D86.9 - SARCOIDOSIS, UNSPECIFIED Status: Chronic (7) Ileus Code(s): K56.7 - ILEUS, UNSPECIFIED Status: Acute Plan: cont to monitor. (8) Hypokalemia Code(s): E87.6 - HYPOKALEMIA Status: Acute Plan: replete
[2017-09-28] MEDS ORDERED: Potassium Chloride 40 MEQ in Premix Bag 1 BAG IVPB SCH (11:45)
--- NOTE | 2017-09-28 12:03 | ADD-PRG ---
DATE OF SERVICE: 09/28/2017 This is an addendum to the note of Dr. Anabel Wallace. Ms. Mc is still on the ventilator, but resting comfortably. Her abdomen seems less distended a nd a CT of the abdomen done yesterday did not reveal evidence of obstruction. She states she is not having any abdominal pain. NG tube has been reintroduced. Her white count has dropped to 10,900, he moglobin 10.4, hematocrit 33.8. Chemistries: Sodium is 145, potassium 3.2, chloride 108, bicarbonat e 27, BUN 27, creatinine 1.02. Chest x-ray shows no significant change from her previous. Clinically, she seems to be the same to m ildly improved. We will continue with mechanical ventilation and follow with the inseminator. Crescencio ej antibiotics for presumed pneumonia.
[2017-09-28] MEDS: Metoclopramide HCl 10 MG/2 ML VIAL IVP SCH ×2 (12:21→17:08)
[2017-09-28] MEDS ORDERED: Dextrose 50% Abboject 50 ML SYRINGE ONE (12:30)
--- NOTE | 2017-09-28 12:40 | PRG ---
DATE OF SERVICE: 09/28/2017 Ms. Mc awakens. She nods she is in no distress. PHYSICAL EXAMINATION: VITAL SIGNS: Heart rate 72. Blood pressure 107/67, respiratory rate 20. Oximetry is 97. LUNGS: Remarkable for coarse equal breath sounds. CARDIOVASCULAR: Regular rhythm. ABDOMEN: Slightly distended. EXTREMITIES: With asymmetry. LABORATORY DATA: White count 10.9, hemoglobin 10.4, platelets 257. Her bandemia has resolved. Sodium 145, potassium 3.2, chloride 108, bicarb 27, BUN 27, creatinine 1.02. PH 7.36, CO2 50, PO2 62. Chest radiograph shows stable bilateral infiltrates. IMPRESSION: 1. Underlying pulmonary fibrosis secondary to past sarcoidosis. 2. Pneumonia. 3. 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 4. Obesity. 5. Deconditioning. Several years ago Dr. Beltran noted she could only walk 30 feet without running out of breath. I doubt she will be weanable in the next few days. Continue with current supportive care measures. Microbiology has been reviewed. There are no positive cultures. Vancomycin can be discontinued. There is no evidence that this is MRSA. It is reasonable to continue her Zosyn and her IV steroids as well as her nebulizer treatments. Critical care time 35 min. AWILDA
[2017-09-28] MEDS ORDERED: PROVENTIL INHALER 6.7 G (200 INHALATIONS) INH PRN (18:23)
[2017-09-28] MEDS ORDERED: Mometasone/Formoterol 120 PUFF INHALER INH SCH (19:15)
[2017-09-28] MEDS: Lorazepam 2 MG/ML VIAL SLOW IVP PRN (19:45)
[2017-09-28] MEDS: Ondansetron HCl/PF 4 MG/2 ML Vial IVP PRN (20:09)
[2017-09-28] MEDS ORDERED: Chloraseptic Spray 180 ml Bottle PO PRN (20:16)
[2017-09-29] MEDS: Metoclopramide HCl 10 MG/2 ML VIAL IVP SCH ×4 (00:07→18:13)
[2017-09-29] MEDS: Propofol 1,000 MG/100 ML VIAL IV PRN ×3 (02:00→17:54)
[2017-09-29] MEDS: Piperacillin-Tazo-Dextrose,Iso 3.375 GM in Premix Bag 1 BAG IVPB SCH ×2 (02:11→08:50)
[2017-09-29] MEDS: Sodium Chloride 0.9% 1,000 ML IV SCH ×3 (02:54→22:26)
[2017-09-29] MEDS: Ondansetron HCl/PF 4 MG/2 ML Vial IVP PRN ×2 (05:02→16:35)
[2017-09-29 05:43] LABS: Anion Gap 10 mmol/L (10-20); BUN (Urea Nitrogen) 22 mg/dL (7.0-18.7); Calc. Creatinine Clearance 126 mL/min (70-130); Carbon Dioxide 27 mmol/L (22-29); Chloride 110 mmol/L (98-107); Estimated GFR-MDRD 84; Glucose 99 mg/dL (70-105); Potassium 3.4 mmol/L (3.5-5.1); Sodium 144 mmol/L (136-145)
[2017-09-29] MEDS ORDERED: Mometasone/Formoterol 120 PUFF INHALER INH SCH (06:30)
[2017-09-29 06:34] LABS: #Lymphocytes 1.5 thou/uL (1.20-3.40); #Monocytes 0.8 thou/uL (0.11-0.59); #Neutrophils 6.9 thou/uL (1.40-6.50); %Basophils 0.5 % (0.0-1.0); %Eosinophils 0.1 % (0.0-10.0); %Lymphocytes 16.1 % (21.0-51.0); %Monocytes 8.5 % (0.0-10.0); %Neutrophils 74.8 % (42.0-75.0); Hemoglobin 10.5 g/dL (12.0-16.0); Hypochromia SLIGHT = 6-15 cells (100X) (0-5/hpf); MDiff Complete? YES; Mean Corpuscular HGB CONC 29.7 g/dL (32.0-36.0); Mean Corpuscular Hemoglobin 26.8 pg (27.0-31.0); Mean Corpuscular Volume 90.2 fl (81.0-99.0); Mean Platelet Volume 8.4 fL (7.4-10.4); PLT Morphology Comment Appears Adequate; Platelet Count 265 thou/uL (130-400); RBC Distribution Width 15.1 % (11.5-14.5); Red Blood Cell (RBC) Count 3.92 mill/uL (4.20-5.40); White Blood Cell (WBC) Count 9.3 thou/uL (4.8-10.8)
[2017-09-29] MEDS ORDERED: metFORMIN 500 MG TAB PO SCH (08:00)
[2017-09-29] MEDS ORDERED: predniSONE 5 MG TAB PO SCH (08:00)
[2017-09-29] MEDS ORDERED: Digoxin 0.125 MG TAB PO SCH (09:00)
[2017-09-29] MEDS ORDERED: Hydrochlorothiazide 25 MG TAB PO SCH (09:00)
[2017-09-29] MEDS ORDERED: Macitentan [Opsumit] 10 MG PO SCH (09:00)
[2017-09-29] MEDS ORDERED: Furosemide 20 MG TAB PO SCH (09:00)
[2017-09-29] MEDS ORDERED: Valsartan 80 MG TAB PO SCH (09:00)
[2017-09-29] MEDS ORDERED: Spironolactone 25 MG TAB PO SCH (09:00)
[2017-09-29] MEDS ORDERED: TADALAFIL PO SCH (09:00)
[2017-09-29] MEDS: Heparin 5,000 UNITS/ML VIAL SC SCH ×3 (09:24→20:12)
[2017-09-29] MEDS: Famotidine 40 MG/4 ML VIAL SLOW IVP SCH (09:39)
[2017-09-29] MEDS: Famotidine/PF 20 mg/2ml Vial SLOW IVP SCH ×2 (09:42→20:12)
--- NOTE | 2017-09-29 10:42 | RAD ---
FRONTAL VIEW CHEST: COMPARISON: Previous day. INDICATION: Ventilated patient. FINDINGS: Supportive lines and tubes remain. There is interstitial and alveolar opacity bilaterally grossly st able. Extensive artifacts limit detail. IMPRESSION: Stable chest. POS: TEJ
--- NOTE | 2017-09-29 12:25 | PDOC.FM ---
- Subjective Subjective: Patient resting comfortably on vent with minimal sedation. She denies pain- specifically no abd pain. - Objective MAR Reviewed: Yes Vital Signs & Weight: Vital Signs (12 hours) Temp Pulse Resp BP Pulse Ox 09/29/17 11:58 98 144/86 H 09/29/17 10:00 22 H 09/29/17 09:18 86 140/80 09/29/17 08:00 22 H 09/29/17 07:28 98.7 F 82 22 H 97 09/29/17 07:25 98.7 F 09/29/17 07:13 76 149/84 H 09/29/17 06:00 22 H 09/29/17 04:00 99.8 F H 22 H 09/29/17 02:23 73 09/29/17 02:00 22 H Weight Admit Weight 99.337 kg Weight 104.6 kg Most Recent Monitor Data Heart Rate from ECG 92 NIBP 144/86 NIBP BP-Mean 106 Respiration from ECG 22 SpO2 97 I&O: 09/28/17 09/29/17 09/30/17 06:59 06:59 06:59 Intake Total 3435 2518 Output Total 2341 1184 219 Balance 1094 1334 -219 Result Diagrams: 09/29/17 04:23 09/29/17 04:23 <Anabel Wallace - Last Filed: 09/29/17 12:24> - Objective Vital Signs & Weight: Vital Signs (12 hours) Temp Pulse Resp BP Pulse Ox 09/29/17 15:00 19 09/29/17 14:55 110 H 145/130 H 09/29/17 14:00 24 H 09/29/17 13:10 102 H 138/75 09/29/17 12:00 100.3 F H 22 H 09/29/17 11:58 98 144/86 H 09/29/17 10:00 22 H 09/29/17 09:18 86 140/80 09/29/17 08:00 22 H 09/29/17 07:28 98.7 F 82 22 H 97 09/29/17 07:25 98.7 F 09/29/17 07:13 76 149/84 H 09/29/17 06:00 22 H Weight Admit Weight 99.337 kg Weight 104.6 kg Most Recent Monitor Data Heart Rate from ECG 105 NIBP 137/80 NIBP BP-Mean 92 Respiration from ECG 21 SpO2 94 I&O: 09/28/17 09/29/17 09/30/17 06:59 06:59 06:59 Intake Total 3435 2518 30 Output Total 2341 1184 420 Balance 1094 1334 -390 Result Diagrams: 09/29/17 04:23 09/29/17 04:23 <Elizabet Nguyen - Last Filed: 09/29/17 17:04> Phys Exam - Physical Examination Constitutional: NAD diffuse wheezing but improved from prior exam. Cardiovascular: RRR, no significant murmur Gastrointestinal: soft, non-tender distended with hypoactive bowel sounds Musculoskeletal: no edema Neurological: non-focal <Anabel Wallace - Last Filed: 09/29/17 12:24> Dx/Plan (1) Acute on chronic respiratory failure with hypoxia and hypercapnia Code(s): J96.21 - ACUTE AND CHRONIC RESPIRATORY FAILURE WITH HYPOXIA; J96.22 - ACUTE AND CHRONIC RESPIRATORY FAILURE WITH HYPERCAPNIA Status: Chronic Plan: 2/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 (2) CAP (community acquired pneumonia) Code(s): J18.9 - PNEUMONIA, UNSPECIFIED ORGANISM Status: Acute QualifierTitle: Laterality: right Lung location: upper lobe of lung Qualified Code(s): J18.1 - Lobar pneumonia, unspecified organism Plan: not weanable from vent at this time per pulm. will switch patient to rocephin and zithromax (3) Pulmonary hypertension associated with sarcoidosis Code(s): I27.29 - OTHER SECONDARY PULMONARY HYPERTENSION; D86.9 - SARCOIDOSIS, UNSPECIFIED Status: Chronic (4) Hypertension Code(s): I10 - ESSENTIAL (PRIMARY) HYPERTENSION Status: Chronic Plan: well controlled. (5) Sarcoidosis Code(s): D86.9 - SARCOIDOSIS, UNSPECIFIED Status: Chronic (6) Ileus Code(s): K56.7 - ILEUS, UNSPECIFIED Status: Acute Plan: cont to monitor. reglan added and clinically improved. (7) Hypokalemia Code(s): E87.6 - HYPOKALEMIA Status: Acute Plan: replete <Anabel Wallace - Last Filed: 09/29/17 12:24> Attending Addendum - Attending Addendum I personally evaluated the patient and discussed the management with Dr. Wallace. I agree with the History, Examination, Assessment and Plan documented above with any addition or exceptions noted below. The patient remains intubated but is doing well. The patient's antibiotics will be adjusted. <Elizabet Nguyen - Last Filed: 09/29/17 17:04>
[2017-09-29] MEDS ORDERED: cefTRIAXone\\ROCEPHIN 1 GM in Sodium Chloride 0.9% 100 ML IVPB SCH (12:30)
[2017-09-29] MEDS ORDERED: Valsartan 80 MG TAB PER TUBE SCH (12:45)
[2017-09-29] MEDS ORDERED: Spironolactone 25 MG TAB PER TUBE SCH (12:45)
[2017-09-29] MEDS ORDERED: Hydrochlorothiazide 25 MG TAB PER TUBE SCH (12:45)
--- NOTE | 2017-09-29 13:24 | PRG ---
DATE OF SERVICE: 09/29/2017 SERVICE: Pulmonary Medicine. INTERVAL HISTORY: The patient is doing really well from a cardiovascular and respiratory standpoint. She is breathing comfortably this morning on mechanical ventilation. Her FIO2 is 37%. Her PEEP is at 8. She is awake and alert. She is following all commands and perfectly comfortable. Otherwise, there has been no interval change to her condition. PHYSICAL EXAMINATION: VITAL SIGNS: Afebrile, pulse 98, blood pressure 144/86, respirations 22, saturation 97% on 40% FIO2 and PEEP of 8. GENERAL: The patient is awake and alert. She is in no apparent distress. LUNGS: Decent air entry. Crackles are present. HEART: Normal rate, regular. ABDOMEN: Soft. Distended. No rebound or guarding. Bowel sounds are present. MUSCULOSKELETAL: No cyanosis or clubbing. There is no pitting in the bilateral lower extremities. Minimal tenting is present. GENITOURINARY: Dahl catheter in place. NEUROLOGIC: Grossly nonfocal. LABORATORY DATA: WBC 9.3, hemoglobin 10.5, platelets 265,000. INR 1.3. PH 7.36, pCO2 50, pO2 63. Potassium 3.4. Basic metabolic profile is otherwise unremarkable with a creatinine of 0.87 and down trending. Urine strep antigen is negative. C. diff antigen and toxin is unremarkable. Urine cultur e is negative. Influenza A and B are negative. Blood cultures x2 are unremarkable. IMAGING: Chest x-ray demonstrates stable x-ray of the chest. There is a right-sided infiltrate, whi ch is fairly dense. The left side looks to be fairly clean. Endotracheal tube is in good position. There is an enteric catheter coursing below the level of the diaphragm and out of view. Right-sided IJ central venous catheter is in good position. ASSESSMENT: 1. Acute on chronic hypoxic respiratory failure. 2. Chronic hypercapnic respiratory failure. 3. Sarcoidosis with pulmonary fibrosis. 4. Cardiac sarcoidosis with cardiomyopathy. 5. Morbid obesity. 6. Healthcare-associated pneumonia. PLAN: Nebulized medications, steroids, and antibiotics will be continued. We will slowly wean away FIO2 as tolerated. In the meantime, we are going to try to minimize any sedation in order to keep he r comfortable and collected. If we can find the right balance, we will start mobilizing her if petar ated. She will remain intubated through Rene per Dr. Wharton's request. CRITICAL CARE TIME: 30 minutes.
[2017-09-29] MEDS: Potassium Chloride 40 MEQ in Premix Bag 1 BAG IVPB SCH ×2 (13:38→16:49)
[2017-09-29] MEDS: Azithromycin 500 MG in Sodium Chloride 0.9% 250 ML 250 ML IVPB SCH (13:38)
[2017-09-29] MEDS: cefTRIAXone\\ROCEPHIN 1 GM, Syringe 0.4 ML in Sterile Water 9.6 ML SLOW IVP SCH (14:36)
[2017-09-29] MEDS: Lorazepam 2 MG/ML VIAL SLOW IVP PRN (18:17)
[2017-09-29] MEDS ORDERED: Digoxin 0.5 MG/2 ML AMP SLOW IVP SCH (22:00)
[2017-09-29] MEDS ORDERED: Metoprolol Tartrate 25 MG TAB PO SCH (22:00)
[2017-09-30] MEDS: Metoclopramide HCl 10 MG/2 ML VIAL IVP SCH ×4 (00:19→17:56)
[2017-09-30] MEDS ORDERED: Digoxin 0.5 MG/2 ML AMP SLOW IVP SCH ×2 (02:00→09:00)
[2017-09-30] MEDS: Propofol 1,000 MG/100 ML VIAL IV PRN ×5 (02:45→20:37)
[2017-09-30 05:19] LABS: Anion Gap 9 mmol/L (10-20); BUN (Urea Nitrogen) 16 mg/dL (7.0-18.7); Calc. Creatinine Clearance 148 mL/min (70-130); Calcium 9.1 mg/dL (7.8-10.44); Carbon Dioxide 29 mmol/L (22-29); Chloride 109 mmol/L (98-107); Estimated GFR-MDRD Greater than 90; Glucose 74 mg/dL (70-105); Magnesium 1.8 mg/dL (1.6-2.6); Phosphorus 2.6 mg/dL (2.3-4.7); Potassium 4.1 mmol/L (3.5-5.1); Sodium 143 mmol/L (136-145)
[2017-09-30] MEDS: Famotidine/PF 20 mg/2ml Vial SLOW IVP SCH ×2 (09:02→20:37)
[2017-09-30] MEDS: Heparin 5,000 UNITS/ML VIAL SC SCH ×3 (09:02→20:37)
[2017-09-30] MEDS: Spironolactone 25 MG TAB PER TUBE SCH (09:02)
[2017-09-30] MEDS: Sodium Chloride 0.9% 1,000 ML IV SCH (09:02)
[2017-09-30] MEDS: Hydrochlorothiazide 25 MG TAB PER TUBE SCH (09:03)
[2017-09-30] MEDS: Metoprolol Tartrate 25 MG TAB PO SCH ×2 (09:03→20:37)
[2017-09-30] MEDS: Valsartan 80 MG TAB PER TUBE SCH (09:03)
--- NOTE | 2017-09-30 09:06 | PDOC.FM ---
- Subjective Subjective: Patient intubated and sedated this AM. She vomited again yesterday afternoon and tube feeds held overnight. She had an episode of A FIB with RVR overnight. - Objective MAR Reviewed: Yes Vital Signs & Weight: Vital Signs (12 hours) Temp Pulse Resp BP Pulse Ox 09/30/17 08:00 100.1 F H 17 09/30/17 07:00 100.0 F H 09/30/17 06:44 91 143/89 H 09/30/17 06:42 92 18 93 L 09/30/17 06:00 17 09/30/17 04:00 18 09/30/17 03:00 99.6 F 09/30/17 02:45 95 09/30/17 02:13 95 09/30/17 02:12 93 16 95 09/30/17 02:00 19 09/30/17 00:00 99.5 F 19 09/29/17 22:50 94 09/29/17 22:49 93 15 91 L 09/29/17 22:00 16 Weight Admit Weight 99.337 kg Weight 105.4 kg Most Recent Monitor Data Heart Rate from ECG 93 NIBP 147/83 NIBP BP-Mean 99 Respiration from ECG 17 SpO2 99 I&O: 09/29/17 09/30/17 10/01/17 06:59 06:59 06:59 Intake Total 2518 3113.6 Output Total 1184 2436 65 Balance 1334 677.6 -65 Result Diagrams: 09/29/17 04:23 09/30/17 04:05 <Anabel Wallace - Last Filed: 09/30/17 10:18> - Objective Vital Signs & Weight: Vital Signs (12 hours) Temp Pulse Resp BP Pulse Ox 09/30/17 16:00 99.6 F 15 09/30/17 15:15 104 H 117/95 H 09/30/17 14:00 15 09/30/17 13:31 82 11 L 94 L 09/30/17 13:28 86 134/86 09/30/17 12:55 90 135/81 09/30/17 12:00 99.1 F 17 09/30/17 10:00 15 09/30/17 09:55 81 155/92 H 09/30/17 09:54 86 15 97 09/30/17 09:04 91 09/30/17 08:00 100 F H 86 15 95 09/30/17 07:00 100.0 F H 09/30/17 06:44 91 143/89 H 09/30/17 06:42 92 18 93 L 09/30/17 06:00 17 Weight Admit Weight 99.337 kg Weight 105.4 kg Most Recent Monitor Data Heart Rate from ECG 108 NIBP 104/66 NIBP BP-Mean 75 Respiration from ECG 28 SpO2 94 I&O: 09/29/17 09/30/17 10/01/17 06:59 06:59 06:59 Intake Total 2518 3113.6 Output Total 1184 2436 360 Balance 1334 677.6 -360 Result Diagrams: 09/29/17 04:23 09/30/17 04:05 <Elizabet Nguyen - Last Filed: 09/30/17 17:19> Phys Exam - Physical Examination Constitutional: NAD diffuse wheezing all lung samayoa, no pseicifc area of rhonchi Cardiovascular: RRR, no significant murmur Gastrointestinal: soft, non-tender mildly distended Musculoskeletal: no edema Neurological: non-focal Psychiatric: normal affect, A&O x 3 <Anabel Wallace - Last Filed: 09/30/17 10:18> Dx/Plan (1) Acute on chronic respiratory failure with hypoxia and hypercapnia Code(s): J96.21 - ACUTE AND CHRONIC RESPIRATORY FAILURE WITH HYPOXIA; J96.22 - ACUTE AND CHRONIC RESPIRATORY FAILURE WITH HYPERCAPNIA Status: Chronic Plan: 2/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 Cont to monitor with pextubation planning per pulmonoology Patient is starting to run low grade fever, concern for aspiration. monitor. (2) Atrial fib/flutter, transient Code(s): [id number] - Status: Acute Plan: After review of record, appears to be her first episode. She has been started on metoprolol BID. She is on heparin TID (3) CAP (community acquired pneumonia) Code(s): J18.9 - PNEUMONIA, UNSPECIFIED ORGANISM Status: Acute QualifierTitle: Laterality: right Lung location: upper lobe of lung Qualified Code(s): J18.1 - Lobar pneumonia, unspecified organism Plan: not weanable from vent at this time per pulm. - originally covered with vanc and zosyn -switched to rocephin and azithromycin on 09/29 (4) Pulmonary hypertension associated with sarcoidosis Code(s): I27.29 - OTHER SECONDARY PULMONARY HYPERTENSION; D86.9 - SARCOIDOSIS, UNSPECIFIED Status: Chronic (5) Hypertension Code(s): I10 - ESSENTIAL (PRIMARY) HYPERTENSION Status: Chronic Plan: well controlled. (6) Sarcoidosis Code(s): D86.9 - SARCOIDOSIS, UNSPECIFIED Status: Chronic (7) Ileus Code(s): K56.7 - ILEUS, UNSPECIFIED Status: Acute Plan: cont to monitor. reglan added and clinically improved. If she cannot tolerate trickle fees, may consider start D5 in fluids. <Anabel Wallace - Last Filed: 09/30/17 10:18> Attending Addendum - Attending Addendum I personally evaluated the patient and discussed the management with Dr. Wallace. I agree with the History, Examination, Assessment and Plan documented above with any addition or exceptions noted below. The patient went into a fib with rvr overnight but improved with metoprolol. Back in sinus rhythm this morning. She vomiting yesterday and tube feeds are being held. Abdomen still distended but pt has had bowel movements. Vent mgmt per pulmonology. <Elizabet Nguyen - Last Filed: 09/30/17 17:19>
[2017-09-30] MEDS: Dextrose 50% Abboject 50 ML SYRINGE SLOW IVP PRN (09:22)
[2017-09-30] MEDS: Azithromycin 500 MG in Sodium Chloride 0.9% 250 ML 250 ML IVPB SCH (11:44)
[2017-09-30 12:28] LABS: Digoxin 0.36 ng/mL (0.8-2.0)
[2017-09-30] MEDS: cefTRIAXone\\ROCEPHIN 1 GM, Syringe 0.4 ML in Sterile Water 9.6 ML SLOW IVP SCH (12:56)
[2017-09-30] MEDS: Dextrose 5 %-0.45 % NaCl 1,000 ML IV SCH (13:43)
--- NOTE | 2017-09-30 13:49 | PRG ---
DATE OF SERVICE: 09/30/2017 SERVICE: Pulmonary Medicine. INTERVAL HISTORY: The patient is doing okay from a respiratory standpoint. Overnight, she developed increasing hypoxemia and need a little bit more support on the ventilator. We will back up on the P EEP to 8 and the FIO2 to 40%. Also, we will switch her over to pressure controlled ventilation, ashanti use even with high pressure support, she was unable to draw good breaths. She started vomiting up al l around the tube and actually aspirated some of this into her lungs. As such, tube feeds were held overnight. She put 500 mL of stomach contents out. We worked on gut motility and the patient had 3 bowel movements overnight. Her abdomen remains fairly distended. That being said, she has no compla ints of abdominal discomfort presently. PHYSICAL EXAMINATION: VITAL SIGNS: Afebrile, currently with a T-max of 100.1 overnight. Pulse 90, blood pressure 135/81, respirations 15, saturation 91% on 37% FIO2 and a PEEP of 7. GENERAL: The patient is awake and alert. She is in no apparent distress. She goes back to sleep if not stimulated after about 10 seconds. HEENT: Normocephalic, atraumatic. Sclerae are white, conjunctivae pink. Oral and nasal mucosa is m oist without lesions. LUNGS: Bilateral crackles are present. There is a slightly prolonged expiratory phase, but no wheez ing. HEART: Normal rate, regular. ABDOMEN: Soft. Distended. Tympanic is present with percussion. Bowel sounds are present. There i s no rebound or guarding. MUSCULOSKELETAL: No cyanosis or clubbing. Trace pitting in the bilateral lower extremities. NEUROLOGIC: Grossly nonfocal. LABORATORY DATA: Basic metabolic profile, magnesium and phosphorus are all unremarkable. Sodium and chloride are both the upper limits of normal. All culture results are negative to date. ASSESSMENT: 1. Acute on chronic hypoxic respiratory failure. 2. Chronic hypercapnic respiratory failure. 3. Sarcoidosis with pulmonary fibrosis. 4. Cardiac sarcoidosis with cardiomyopathy. 5. Morbid obesity. 6. Healthcare-associated pneumonia. PLAN: I will switch her IV fluids over to half normal saline. Our goal will be to keep her about ev en over the next 24 hours. I will back off on her PEEP to 7 and FIO2 to 39%. I am also going to koki k off on her rate to 11. She seems to be comfortable on these current settings. We will turn a poli le bit work of breathing over to the patient. Pulmonary Critical Care will continue to follow. CRITICAL CARE TIME: 30 minutes.
[2017-09-30] MEDS ORDERED: Magnesium Sulfate 3 GM in Sodium Chloride 0.9% 100 ML IVPB SCH (14:15)
[2017-09-30] MEDS: Lorazepam 2 MG/ML VIAL SLOW IVP PRN ×2 (15:37→20:35)
[2017-10-01] MEDS: Scopolamine 1.5 mg/72 hour Patch TD SCH (00:04)
[2017-10-01] MEDS: Metoclopramide HCl 10 MG/2 ML VIAL IVP SCH ×5 (00:06→23:38)
[2017-10-01] MEDS: Propofol 1,000 MG/100 ML VIAL IV PRN ×5 (00:17→21:11)
[2017-10-01 05:16] LABS: Anion Gap 14 mmol/L (10-20); BUN (Urea Nitrogen) 12 mg/dL (7.0-18.7); Calc. Creatinine Clearance 157 mL/min (70-130); Calcium 9.5 mg/dL (7.8-10.44); Carbon Dioxide 27 mmol/L (22-29); Chloride 103 mmol/L (98-107); Estimated GFR-MDRD Greater than 90; Glucose 76 mg/dL (70-105); Potassium 3.6 mmol/L (3.5-5.1); Sodium 140 mmol/L (136-145)
[2017-10-01 07:03] LABS: Actual Bicarbonate (HCO3a) 28.7 mEq/L (22-26); CO2 Tension 49.3 mmHg (35.0-45.0); Calcium, Ionized 1.3 mmol/L (1.12-1.30); Hematocrit-ABG 35.3 % (36.0-47.0); Hemoglobin (Hb) 10.2 g/dL (12.0-16.0); pH, Arterial 7.38 (7.35-7.45)
[2017-10-01 07:04] LABS: ALV-art Gradient 122.075 (0-20); Puncture Site RR
--- NOTE | 2017-10-01 07:27 | PDOC.FM ---
- Subjective Subjective: No complaints this morning apart from wanting to something to help her sleep at home. She denies any sensation of shortness of breath or abdominal pain. - Objective Vital Signs & Weight: Vital Signs (12 hours) Temp Pulse Resp Pulse Ox 10/01/17 06:00 20 10/01/17 04:00 98.6 F 20 10/01/17 02:33 83 17 99 10/01/17 02:00 27 H 10/01/17 00:00 98.7 F 20 09/30/17 22:05 98 13 97 09/30/17 22:00 19 09/30/17 20:00 98.6 F 84 18 100 Weight Admit Weight 99.337 kg Weight 104.9 kg Most Recent Monitor Data Heart Rate from ECG 80 NIBP 141/89 NIBP BP-Mean 105 Respiration from ECG 20 SpO2 99 I&O: 09/30/17 10/01/17 10/02/17 06:59 06:59 06:59 Intake Total 3113.6 1060 Output Total 2436 2595 Balance 567.6 -6123 Result Diagrams: 09/29/17 04:23 10/01/17 03:35 <Sheryl Gay - Last Filed: 10/01/17 11:18> - Objective Vital Signs & Weight: Vital Signs (12 hours) Temp Pulse Resp BP Pulse Ox 10/01/17 12:00 99.5 F 36 H 96 10/01/17 10:00 27 H 10/01/17 08:08 99 135/76 10/01/17 08:00 100.1 F H 10/01/17 06:00 20 10/01/17 04:00 98.6 F 20 10/01/17 02:33 83 17 99 10/01/17 02:00 27 H Weight Admit Weight 99.337 kg Weight 104.9 kg Most Recent Monitor Data Heart Rate from ECG 87 NIBP 129/77 NIBP BP-Mean 93 Respiration from ECG 29 SpO2 99 I&O: 09/30/17 10/01/17 10/02/17 06:59 06:59 06:59 Intake Total 3113.6 1060 60 Output Total 2436 2595 470 Balance 677.6 -1535 -410 Result Diagrams: 09/29/17 04:23 10/01/17 03:35 <Felipe Carter - Last Filed: 10/01/17 12:37> Phys Exam - Physical Examination Constitutional: NAD HEENT: moist MMs, sclera anicteric ET tube in place Neck: supple inspiratory and expiratory wheezes diffusely Cardiovascular: RRR, no significant murmur Gastrointestinal: soft, non-tender, positive bowel sounds mildly distended Musculoskeletal: no edema, pulses present Neurological: non-focal, moves all 4 limbs Psychiatric: normal affect, A&O x 3 <Sheryl Gay - Last Filed: 10/01/17 11:18> Dx/Plan (1) Atrial fib/flutter, transient Code(s): [id number] - Status: Acute (2) CAP (community acquired pneumonia) Code(s): J18.9 - PNEUMONIA, UNSPECIFIED ORGANISM Status: Acute QualifierTitle: Laterality: right Lung location: upper lobe of lung Qualified Code(s): J18.1 - Lobar pneumonia, unspecified organism (3) Ileus Code(s): K56.7 - ILEUS, UNSPECIFIED Status: Acute (4) Acute on chronic respiratory failure with hypoxia and hypercapnia Code(s): J96.21 - ACUTE AND CHRONIC RESPIRATORY FAILURE WITH HYPOXIA; J96.22 - ACUTE AND CHRONIC RESPIRATORY FAILURE WITH HYPERCAPNIA Status: Chronic (5) Pulmonary hypertension associated with sarcoidosis Code(s): I27.29 - OTHER SECONDARY PULMONARY HYPERTENSION; D86.9 - SARCOIDOSIS, UNSPECIFIED Status: Chronic (6) Hypertension Code(s): I10 - ESSENTIAL (PRIMARY) HYPERTENSION Status: Chronic (7) Sarcoidosis Code(s): D86.9 - SARCOIDOSIS, UNSPECIFIED Status: Chronic - Plan Plan: 1. Acute on chronic respiratory failure with hypoxia and hypercapnia - Patient with end stage sarcoidosis, in addition to RUL pneumonia - Extubation and vent management per Drs. Wharton & Devin, appreciate assistance - Continue to monitor for signs of worsening PNA, concerns for aspiration with numerous vomiting episodes, no signs of progression/decompensation - Tube feeds held overnight - Pending possible extubation, will consider initiating feeds this morning 2. A fib/flutter, transient - Appears to be first episode, but with clear p waves, more likely sinus tachycardia - Well-controlled on metoprolol with no recurrence - Heparin TID currently 3. CAP - RUL - Initially on vanc and zosyn, transitioned to rocephin and azithromycin on 09/29 - Appreciate Dr. Beltran's assistance - will continue steroids, antibiotics and duonebs 4. HTN - Well-controlled on current regimen 5. Sarcoidosis - Appreciate Dr. Wharton & Dr. Beltran's assistance 6. Ileus - Reglan added and clinical improvement with no vomiting episodes overnight - Continues to have BM, 2 overnight - Restarting feeds this morning 7. DM2 - Historical diagnosis - Will review clinic records to confirm - On Metformin at home - Currently mild SSI, requiring minimal dosages daily - CC diet on tube feeds and ultimately upon transition to PO PPX: Heparin and famotidine <Sheryl Gay - Last Filed: 10/01/17 11:18> Attending Addendum - Attending Addendum I personally evaluated the patient and discussed the management with Dr. Gay. I agree with and repeated the History, Examination, Assessment and Plan documented above with any addition or exceptions noted below. On propofol gtt A on CRF, improving, on SIMV, lung protective, duonebs + steroids HDS, h/o PA HTN (last TTE with reading in 2014 of 69), euvolemic, episode of sinus tach TF with high residuals on reglan, trial off in 1-2 days CAP, severe, on rocephin/azithro, negative cultures D/c CVC when able and replace with midline <Felipe Carter - Last Filed: 10/01/17 12:37>
--- NOTE | 2017-10-01 09:22 | PRG ---
DATE OF SERVICE: 10/01/2017 She is intubated on the vent, responsive. She presented to the hospital with what sounds like respiratory failure. PHYSICAL EXAMINATION: VITAL SIGNS: Pulse is 66, sats are 98, blood pressure 130/81, respiration 24. She is now intubated. I's & O's have been 3113 in, 2436 out. CHEST: Chest revealed bilateral rhonchi and crackles. CARDIAC: Sinus tachycardia. ABDOMEN: Soft, no masses. LABORATORY: Her pO2 79, pCO2 47.38 on AC mode 470, PEEP of 5. Electrolytes are normal. Last white count was 9,000, H&H 10 and 34. Platelets normal. IMPRESSION: 1. Respiratory failure with pulmonary hypertension secondary to end-stage lung disease. 2. Sarcoidosis. 3. Low flow O2 at home. 4. On several different medications for pulmonary hypertension. PLAN: Will try and adjust vent. Continue steroids, neb treatments, antibiotics. Long-term prognosis is grave, though she is on a transplant list in [place] for ongoing bilateral suki g transplant. I will follow. One-half hour critical care time.
[2017-10-01] MEDS: Valsartan 80 MG TAB PER TUBE SCH (09:31)
[2017-10-01] MEDS: Metoprolol Tartrate 25 MG TAB PO SCH ×2 (09:35→20:14)
[2017-10-01] MEDS: Spironolactone 25 MG TAB PER TUBE SCH (09:35)
[2017-10-01] MEDS: Hydrochlorothiazide 25 MG TAB PER TUBE SCH (09:36)
[2017-10-01] MEDS: Heparin 5,000 UNITS/ML VIAL SC SCH ×3 (09:37→20:13)
[2017-10-01] MEDS: Famotidine/PF 20 mg/2ml Vial SLOW IVP SCH ×2 (09:37→20:14)
[2017-10-01] MEDS: Dextrose 5 %-0.45 % NaCl 1,000 ML IV SCH (09:38)
[2017-10-01] MEDS ORDERED: Sodium Bicarbonate Tab 325 MG TAB PER TUBE PRN (11:30)
[2017-10-01] MEDS ORDERED: Pancrelipase DR 12000 1 CAP FS PRN (11:30)
[2017-10-01] MEDS: cefTRIAXone\\ROCEPHIN 1 GM, Syringe 0.4 ML in Sterile Water 9.6 ML SLOW IVP SCH (14:18)
[2017-10-01] MEDS ORDERED: Sodium Chloride 0.9% 500 ML IV SCH (16:00)
[2017-10-01] MEDS: Lorazepam 2 MG/ML VIAL SLOW IVP PRN (21:11)
[2017-10-02] MEDS: Propofol 1,000 MG/100 ML VIAL IV PRN ×2 (01:35→07:08)
[2017-10-02] MEDS: Dextrose 50% Abboject 50 ML SYRINGE SLOW IVP PRN (04:19)
[2017-10-02] MEDS: Metoclopramide HCl 10 MG/2 ML VIAL IVP SCH ×4 (05:12→23:29)
[2017-10-02 05:25] LABS: #Eosinphils 0.1 thou/uL (0.0-0.7); #Lymphocytes 1.5 thou/uL (1.20-3.40); #Monocytes 0.9 thou/uL (0.11-0.59); #Neutrophils 9.7 thou/uL (1.40-6.50); %Basophils 0.1 % (0.0-1.0); %Eosinophils 0.7 % (0.0-10.0); %Lymphocytes 11.9 % (21.0-51.0); %Monocytes 7.3 % (0.0-10.0); %Neutrophils 79.9 % (42.0-75.0); Mean Corpuscular HGB CONC 29.8 g/dL (32.0-36.0); Mean Corpuscular Hemoglobin 26.8 pg (27.0-31.0); Mean Corpuscular Volume 89.8 fl (81.0-99.0); Mean Platelet Volume 7.8 fL (7.4-10.4); Platelet Count 398 thou/uL (130-400); RBC Distribution Width 14.9 % (11.5-14.5); Red Blood Cell (RBC) Count 4.09 mill/uL (4.20-5.40); White Blood Cell (WBC) Count 12.2 thou/uL (4.8-10.8)
[2017-10-02 05:42] LABS: Anion Gap 11 mmol/L (10-20); BUN (Urea Nitrogen) 10 mg/dL (7.0-18.7); Calc. Creatinine Clearance 146 mL/min (70-130); Calcium 9.5 mg/dL (7.8-10.44); Carbon Dioxide 32 mmol/L (22-29); Chloride 100 mmol/L (98-107); Estimated GFR-MDRD Greater than 90; Glucose 158 mg/dL (70-105); Sodium 140 mmol/L (136-145)
--- NOTE | 2017-10-02 07:25 | PDOC.FM ---
- Subjective Subjective: Resting comfortably on vent this morning. Denies any pain and is sleepy on sedation this a.m. - Objective MAR Reviewed: Yes Vital Signs & Weight: Vital Signs (12 hours) Temp Pulse Resp BP Pulse Ox 10/02/17 02:29 96 16 98 10/02/17 02:00 24 H 10/02/17 00:00 100.7 F H 24 H 10/01/17 22:16 96 30 H 94 L 10/01/17 21:11 103 H 185/108 H 10/01/17 20:00 99.7 F H 105 H 24 H 10/01/17 19:27 105 H 24 H 92 L Weight Admit Weight 99.337 kg Weight 103 kg Most Recent Monitor Data Heart Rate from ECG 100 NIBP 144/84 NIBP BP-Mean 105 Respiration from ECG 24 SpO2 100 I&O: 10/01/17 10/02/17 10/03/17 06:59 06:59 06:59 Intake Total 1060 796 Output Total 5693 2276 Balance -8571 -8749 Result Diagrams: 10/02/17 04:48 10/02/17 04:48 <Sheryl Gay - Last Filed: 10/02/17 10:37> - Objective Vital Signs & Weight: Vital Signs (12 hours) Temp Pulse Resp BP Pulse Ox 10/02/17 11:29 93 L 10/02/17 11:24 110 H 18 91 L 10/02/17 08:00 103 H 116/74 10/02/17 04:00 100.7 F H 10/02/17 02:29 96 16 98 10/02/17 02:00 24 H 10/02/17 00:00 100.7 F H 24 H Weight Admit Weight 99.337 kg Weight 103 kg Most Recent Monitor Data Heart Rate from ECG 105 NIBP 134/70 NIBP BP-Mean 82 Respiration from ECG 30 SpO2 93 I&O: 10/01/17 10/02/17 10/03/17 06:59 06:59 06:59 Intake Total 1060 796 Output Total 2591 1720 Balance -7464 -6554 Result Diagrams: 10/02/17 04:48 10/02/17 04:48 <Felipe Carter - Last Filed: 10/02/17 11:48> Phys Exam - Physical Examination Constitutional: NAD HEENT: moist MMs, sclera anicteric ET tube in place Neck: supple Respiratory: wheezing present inspiratory and expiratory wheezing diffusely Cardiovascular: RRR, no significant murmur intermittently tachycardic Gastrointestinal: soft, non-tender mildly distended, slightly more than yesterday, good bowel sounds 4/4 quad Musculoskeletal: pulses present trace edema Neurological: non-focal, moves all 4 limbs following commands, responds appropriately to questions Psychiatric: normal affect, A&O x 3 Skin: cap refill <2 seconds <Sheryl Gay - Last Filed: 10/02/17 10:37> Dx/Plan (1) Atrial fib/flutter, transient Code(s): [id number] - Status: Acute (2) CAP (community acquired pneumonia) Code(s): J18.9 - PNEUMONIA, UNSPECIFIED ORGANISM Status: Acute QualifierTitle: Laterality: right Lung location: upper lobe of lung Qualified Code(s): J18.1 - Lobar pneumonia, unspecified organism (3) Ileus Code(s): K56.7 - ILEUS, UNSPECIFIED Status: Acute (4) Acute on chronic respiratory failure with hypoxia and hypercapnia Code(s): J96.21 - ACUTE AND CHRONIC RESPIRATORY FAILURE WITH HYPOXIA; J96.22 - ACUTE AND CHRONIC RESPIRATORY FAILURE WITH HYPERCAPNIA Status: Chronic (5) Pulmonary hypertension associated with sarcoidosis Code(s): I27.29 - OTHER SECONDARY PULMONARY HYPERTENSION; D86.9 - SARCOIDOSIS, UNSPECIFIED Status: Chronic (6) Hypertension Code(s): I10 - ESSENTIAL (PRIMARY) HYPERTENSION Status: Chronic (7) Sarcoidosis Code(s): D86.9 - SARCOIDOSIS, UNSPECIFIED Status: Chronic - Plan Plan: 1. Acute on chronic respiratory failure with hypoxia and hypercapnia - Patient with end stage sarcoidosis, in addition to RUL pneumonia - Extubation and vent management per Drs. Wharton & Devin, appreciate assistance - SIMV currently. PEEP and FiO2 requirements stable - Continue to monitor for signs of worsening PNA, concerns for aspiration with numerous vomiting episodes earlier in hospitalization, no signs of progression/ decompensation - Tolerating tube feeds well, now at 20 ml/hr - Pending possible extubation, per Dr. Beltran will attempt today - Discussed D/C central line with Dr. Beltran, prefers to keep in place at this time 2. A fib/flutter, transient - Appears to be first episode, but with clear p waves, more likely sinus tachycardia - Well-controlled on metoprolol with no recurrence - Will D/C b-radha per Dr. Beltran and restart pulmonary HTN medications 3. CAP - RUL - Initially on vanc and zosyn, transitioned to rocephin and azithromycin on 09/29 - Appreciate Dr. Beltran's assistance - will continue steroids, antibiotics and duonebs - Tmax 100.7, will repeat blood and urine cultures - CXR stable 4. HTN - Well-controlled on current regimen 5. Sarcoidosis - Appreciate Dr. Wharton & Dr. Beltran's assistance 6. Ileus, resolving - Reglan added and clinical improvement with no vomiting episodes for > 24h - Continues to have BM - Continue tube feeds 7. DM2 - On Metformin at home, will resume if successfully extubated and able to tolerate PO - Currently mild SSI, requiring minimal dosages daily - CC diet on tube feeds and ultimately upon transition to PO 9. Pulmonary HTN - Will resume home meds PPX: Heparin and famotidine <Sheryl Gay - Last Filed: 10/02/17 10:37> Attending Addendum - Attending Addendum I personally evaluated the patient and discussed the management with Dr. Gay. I agree with and repeated the History, Examination, Assessment and Plan documented above with any addition or exceptions noted below. She is doing better this morning. No complaints. Denies cp/palps/n/v/diarrhea/ f/c. Extubated this morning. On ventimask, satting mid 90s. Tachypneic, no retractions, diffuse wheezing and able to provide short answers Sepsis with acute on chronic respiratory failure 2/2 CAP with underlying end stage lung disease 2/2 sarcoidosis - steroids, nebs and antibiotics PA HTN - O2 at goal, euvolemic, negative v/q in the past Guarded prognosis, but improving. <Felipe Carter - Last Filed: 10/02/17 11:48>
[2017-10-02 08:17] LABS: Actual Bicarbonate (HCO3a) 31.3 mEq/L (22-26); Base Excess (BEa) 5.5 mEq/L (0 (+/-) 2.5); CO2 Tension 51.7 mmHg (35.0-45.0); Calcium, Ionized 1.3 mmol/L (1.12-1.30); Hematocrit-ABG 37.9 % (36.0-47.0); Hemoglobin (Hb) 10.9 g/dL (12.0-16.0); O2 Tension (PaO2) 73.6 mmHg (80.0-100.0)
[2017-10-02 08:21] LABS: ALV-art Gradient 125.585 (0-20); Puncture Site RR
--- NOTE | 2017-10-02 08:28 | RAD ---
PORTABLE UPRIGHT FRONTAL CHEST RADIOGRAPH: Date: 10-02-17 Comparison: 09-29-17 History: Ventilated CCU patient. FINDINGS: Stable right vascular catheter, endotracheal tube, and nasogastric tube. Increased density persists i n bilateral perihilar regions which may be on the basis of airspace disease and/or lymphadenopathy. T here is increased density in the right paratracheal region, which may signify lymphadenopathy. No pne umothorax or large volume pleural effusion is seen. IMPRESSION: Increased density in the right paratracheal region and bilateral hilar regions, significance/etiology uncertain. Perihilar findings may be on the basis of infectious pneumonitis or aspiration. Underlyin g lymphadenopathy in perihilar regions and right paratracheal region is a possibility as well. Recomm end follow up CT examination if these opacities persist despite treatment. POS: [facility]
[2017-10-02] MEDS: Potassium Chloride 40 MEQ in Premix Bag 1 BAG IVPB SCH ×2 (08:52→20:15)
[2017-10-02] MEDS: Valsartan 80 MG TAB PER TUBE SCH (08:53)
[2017-10-02] MEDS: Heparin 5,000 UNITS/ML VIAL SC SCH ×3 (08:53→20:15)
[2017-10-02] MEDS: Famotidine 20 MG TAB PER TUBE SCH ×2 (08:54→20:14)
[2017-10-02] MEDS: Hydrochlorothiazide 25 MG TAB PER TUBE SCH (08:54)
[2017-10-02] MEDS: Spironolactone 25 MG TAB PER TUBE SCH (08:54)
[2017-10-02] MEDS: Metoprolol Tartrate 25 MG TAB PO SCH (08:55)
[2017-10-02] MEDS ORDERED: DC Sedation Protocol FS ONE (09:34)
--- NOTE | 2017-10-02 10:54 | PRG ---
DATE OF SERVICE: 10/02/2017 This morning the patient is awake, alert, responsive, on the vent, lightly sedated. PHYSICAL EXAMINATION: VITAL SIGNS: Blood pressure 116/73, pulse is 110. Sats 97%, respirations 29. CHEST: Chest reveals bilateral rhonchi, minimal wheezing. CARDIAC: Normal S1, S2, no gallops. ABDOMEN: Soft, no masses. I's and O's 1060 in, 2595 out. White count 12,000, H&H 11 and 36, platelet count 398, pO2 is 73, pCO2 27.40, rate of 10. Electrolytes are normal. Glucose is low. X-ray shows bilateral prominent pulmonary arteries, increased markings consistent with previous sarco idosis. IMPRESSION: 1. Acute on chronic respiratory failure. 2. Obesity. 3. Lung disease. 4. Pulmonary hypertension. PLAN: We will try and see if we can wean and extubate her today. Antibiotics, neb treatments, suppo rtive care. I will follow. One-half hour of critical care time.
[2017-10-02] MEDS: cefTRIAXone\\ROCEPHIN 1 GM, Syringe 0.4 ML in Sterile Water 9.6 ML SLOW IVP SCH (14:15)
[2017-10-02] MEDS: Ondansetron HCl/PF 4 MG/2 ML Vial IVP PRN (20:15)
[2017-10-03] MEDS: Metoclopramide HCl 10 MG/2 ML VIAL IVP SCH (05:18)
[2017-10-03 05:39] LABS: #Basophils 0.1 thou/uL (0.0-0.2); #Eosinphils 0.1 thou/uL (0.0-0.7); #Lymphocytes 1.2 thou/uL (1.20-3.40); #Monocytes 0.9 thou/uL (0.11-0.59); #Neutrophils 14.9 thou/uL (1.40-6.50); %Basophils 0.8 % (0.0-1.0); %Eosinophils 0.4 % (0.0-10.0); %Lymphocytes 7.2 % (21.0-51.0); %Monocytes 5.4 % (0.0-10.0); %Neutrophils 86.3 % (42.0-75.0); Hemoglobin 11.8 g/dL (12.0-16.0); Mean Corpuscular HGB CONC 29.9 g/dL (32.0-36.0); Mean Corpuscular Hemoglobin 27.1 pg (27.0-31.0); Mean Corpuscular Volume 90.6 fl (81.0-99.0); Mean Platelet Volume 7.7 fL (7.4-10.4); Platelet Count 455 thou/uL (130-400); RBC Distribution Width 14.7 % (11.5-14.5); Red Blood Cell (RBC) Count 4.35 mill/uL (4.20-5.40); White Blood Cell (WBC) Count 17.2 thou/uL (4.8-10.8)
[2017-10-03 05:58] LABS: Anion Gap 12 mmol/L (10-20); BUN (Urea Nitrogen) 14 mg/dL (7.0-18.7); Calc. Creatinine Clearance 147 mL/min (70-130); Calcium 10.1 mg/dL (7.8-10.44); Carbon Dioxide 33 mmol/L (22-29); Chloride 100 mmol/L (98-107); Estimated GFR-MDRD Greater than 90; Glucose 104 mg/dL (70-105); Sodium 141 mmol/L (136-145)
[2017-10-03] MEDS ORDERED: Oxymetazoline HCl 0.05% ( 15 ML ) ONE (07:39)
--- NOTE | 2017-10-03 07:58 | PDOC.FM ---
- Subjective Subjective: Feeling well this morning off ventilator and has no new complaints. She would like anderson out and feels ready to stand up, possibly ambulate. - Objective MAR Reviewed: Yes Vital Signs & Weight: Vital Signs (12 hours) Temp Pulse Resp Pulse Ox 10/03/17 04:00 98.9 F 10/03/17 02:49 116 H 20 97 10/03/17 00:00 99 F 10/02/17 22:52 113 H 18 92 L 10/02/17 20:00 98.8 F 105 H 26 H 92 L Weight Admit Weight 99.337 kg Weight 101.2 kg Most Recent Monitor Data Heart Rate from ECG 121 NIBP 102/71 NIBP BP-Mean 84 Respiration from ECG 25 SpO2 99 I&O: 10/02/17 10/03/17 10/04/17 06:59 06:59 06:59 Intake Total 796 926 Output Total 3160 2930 Openbravo Result Diagrams: 10/03/17 05:11 10/03/17 05:11 <Sheryl Gay - Last Filed: 10/03/17 09:03> - Objective Vital Signs & Weight: Vital Signs (12 hours) Temp Pulse Resp BP Pulse Ox 10/03/17 10:43 111 H 20 94 L 10/03/17 10:35 98.9 F 120 H 20 113/74 91 L 10/03/17 09:33 109 H 10/03/17 08:03 93 L 10/03/17 08:01 123 H 24 H 94 L 10/03/17 08:00 98.9 F 109 H 21 H 91 L 10/03/17 07:00 98.9 F 10/03/17 04:00 98.9 F 10/03/17 02:49 116 H 20 97 10/03/17 00:00 99 F Weight Admit Weight 99.337 kg Weight 101.2 kg Most Recent Monitor Data Heart Rate from ECG 110 NIBP 125/80 NIBP BP-Mean 98 Respiration from ECG 19 SpO2 90 I&O: 10/02/17 10/03/17 10/04/17 06:59 06:59 06:59 Intake Total 796 926 240 Output Total 3160 2930 100 Openbravo 140 Result Diagrams: 10/03/17 05:11 10/03/17 05:11 <Braden Carteron - Last Filed: 10/03/17 11:51> Phys Exam - Physical Examination Constitutional: NAD HEENT: moist MMs Neck: supple diffuse wheezing BL Cardiovascular: no significant murmur tachycardic Gastrointestinal: soft, non-tender, positive bowel sounds mild distention, normal per patient Musculoskeletal: no edema, pulses present Neurological: non-focal, normal sensation, moves all 4 limbs Psychiatric: normal affect, A&O x 3 Skin: normal turgor, cap refill <2 seconds <Sheryl Gay - Last Filed: 10/03/17 09:03> Dx/Plan (1) Atrial fib/flutter, transient Code(s): [id number] - Status: Acute (2) CAP (community acquired pneumonia) Code(s): J18.9 - PNEUMONIA, UNSPECIFIED ORGANISM Status: Acute QualifierTitle: Laterality: right Lung location: upper lobe of lung Qualified Code(s): J18.1 - Lobar pneumonia, unspecified organism (3) Ileus Code(s): K56.7 - ILEUS, UNSPECIFIED Status: Acute (4) Acute on chronic respiratory failure with hypoxia and hypercapnia Code(s): J96.21 - ACUTE AND CHRONIC RESPIRATORY FAILURE WITH HYPOXIA; J96.22 - ACUTE AND CHRONIC RESPIRATORY FAILURE WITH HYPERCAPNIA Status: Chronic (5) Pulmonary hypertension associated with sarcoidosis Code(s): I27.29 - OTHER SECONDARY PULMONARY HYPERTENSION; D86.9 - SARCOIDOSIS, UNSPECIFIED Status: Chronic (6) Hypertension Code(s): I10 - ESSENTIAL (PRIMARY) HYPERTENSION Status: Chronic (7) Sarcoidosis Code(s): D86.9 - SARCOIDOSIS, UNSPECIFIED Status: Chronic - Plan Plan: 1. Acute on chronic respiratory failure with hypoxia and hypercapnia - Patient with end stage sarcoidosis, in addition to RUL pneumonia - Appreciate Dr. Beltran's assistance - Satting well on room air - Continue to monitor for signs of worsening PNA, concerns for aspiration with numerous vomiting episodes earlier in hospitalization, no signs of progression/ decompensation - Tolerating PO without issue, transition to regular diet today - D/C central line and anderson 2. A fib/flutter, transient - Appears to be first episode, but with clear p waves, more likely sinus tachycardia - Tachycardia has recurred but is sinus - D/C b-radha per Dr. Beltran and restart pulmonary HTN medications 3. CAP - RUL - Initially on vanc and zosyn, transitioned to rocephin and azithromycin on 09/29 - Appreciate Dr. Beltran's assistance - will continue steroids, antibiotics and duonebs - Afebrile, repeat blood and urine cx pending 4. HTN - Well-controlled on current regimen 5. Sarcoidosis - Appreciate Dr. Wharton & Dr. Beltran's assistance 6. Ileus, resolving - Reglan added and clinical improvement with no vomiting episodes for > 24h - Continues to have BM 7. DM2 - Will resume home meds and ACHS accuchecks 9. Pulmonary HTN - Home meds PPX: Heparin and famotidine <Sheryl Gay - Last Filed: 10/03/17 09:03> Attending Addendum - Attending Addendum I personally evaluated the patient and discussed the management with Dr. Gay. I agree with the History, Examination, Assessment and Plan documented above with any addition or exceptions noted below. Improved and feeling good this morning. Complete antibiotics. Restart pulm HTN meds. Appreciate pulmonary recommendations. <Felipe Carter - Last Filed: 10/03/17 11:51>
[2017-10-03] MEDS: Heparin 5,000 UNITS/ML VIAL SC SCH ×2 (08:20→15:05)
[2017-10-03] MEDS: Valsartan 80 MG TAB PER TUBE SCH (08:20)
[2017-10-03] MEDS: Hydrochlorothiazide 25 MG TAB PER TUBE SCH (08:21)
[2017-10-03] MEDS: Spironolactone 25 MG TAB PER TUBE SCH (08:21)
--- NOTE | 2017-10-03 08:44 | PRG ---
DATE OF SERVICE: 10/03/2017 This morning she is awake, alert, responsive, extubated, in no distress. PHYSICAL EXAMINATION: VITAL SIGNS: Pulse is 116, blood pressure 160/71, sats are 92% on 4 liters, respirations 25. I's an d O's are good. CHEST: Reveals no wheezing. CARDIAC: Normal S1-S2. No gallops. ABDOMEN: Soft. No masses. LABORATORY AND X-RAY FINDINGS: X-ray shows cardiomegaly, some scarring. IMPRESSION: 1. Respiratory failure. 2. End-stage sarcoidosis on transplant list. 3. Pulmonary hypertension. 4. Obesity. 5. Asthma. PLAN: Switch over to oral medication. Continue steroids, plan to switch over to oral prednisone cain orrow if she remains stable. Continue PT. She can be transferred out of the ICU to a monitored bed. I would like to continue home pulmonary hypertension medications.
[2017-10-03] MEDS ORDERED: Digoxin 0.125 MG TAB PO SCH (09:00)
--- NOTE | 2017-10-03 09:16 | RAD ---
FRONTAL RADIOGRAPH OF CHEST PORTABLE SEMI UPRIGHT: Date: 10/03/17 COMPARISON: 10/02/17. HISTORY: CCU patient, status post extubation. FINDINGS: The endotracheal tube and nasogastric tube present on the prior study have been removed. Vascular cat heter overlies the superior mediastinum on the right. There is rounded density identified in bilatera l perihilar regions, suspicious for underlying lymphadenopathy. Alternative possibilities include vas cular dilation and air space disease. These findings are more prominent on this examination when comp ared to the 10/02/17 examination, which may be in part on the basis of shallow inspiration and portab le technique. IMPRESSION: Persistent prominent density in bilateral perihilar regions, right greater than left. Differential di agnosis includes air space disease, aspiration, edema, and lymphadenopathy. Recommend follow-up CT ex amination when the patient is able. POS: [facility]
[2017-10-03] MEDS: Cefdinir 300 MG CAP PO SCH ×2 (09:25→20:39)
[2017-10-03] MEDS: Furosemide 20 MG TAB PO SCH (09:33)
[2017-10-03] MEDS: OPSUMIT 10 MG TABLET PO SCH (14:28)
[2017-10-03] MEDS: ADCIRCA 20 MG PO SCH (14:28)
[2017-10-03] MEDS ORDERED: Sildenafil Citrate 20 MG TAB PO SCH (15:00)
[2017-10-03] MEDS: Loperamide HCl 2 MG CAP PO PRN (15:05)
[2017-10-03] MEDS: Mometasone/Formoterol 120 PUFF INHALER INH SCH (18:48)
[2017-10-03] MEDS: Enoxaparin Sodium 40 MG/0.4 ML SYRINGE SC SCH (20:39)
[2017-10-03] MEDS: ALPRAZolam 0.5 MG TAB PO SCH (20:39)
[2017-10-03] MEDS: Scopolamine 1.5 mg/72 hour Patch TD SCH (20:40)
[2017-10-04] MEDS: Loperamide HCl 2 MG CAP PO PRN ×3 (00:07→14:34)
--- NOTE | 2017-10-04 06:12 | CON ---
DATE OF CONSULTATION: 10/03/2017 REASON FOR CONSULTATION: Supraventricular tachycardia. HISTORY OF PRESENT ILLNESS: Ms. Mc is a delightful 51-year-old woman. She has a history of se ludivina sarcoidosis of her lungs. She says she has had this for 10 years. She [facility] with difficulty breathing during this time. She has had some episodes of supraventricular tachy cardia, rates about 150-160. She was tried on digoxin, but it made her nauseated even with a low ser um levels. She can tolerate beta blockers due to her lungs. PAST MEDICAL HISTORY: 1. Sarcoid. 2. Pulmonary hypertension. 3. Chronic kidney disease. 4. History of diastolic dysfunction. PAST SURGICAL HISTORY: section. FAMILY HISTORY: Sister with sarcoid. SOCIAL HISTORY: Nonsmoker, nondrinker. MEDICATION: As outlined above. REVIEW OF SYSTEMS: Initially, she was intubated. General: No weight gain or loss. Vision: No bren nges. Hearing: No changes. Pulmonary: Positive for shortness of breath. Cardiac: No chest pain. Gastrointestinal: No nausea, vomiting, diarrhea. Skin: No rashes. Neurologic: No unilateral we akness or numbness. Psychiatric: No unusual depression or anxiety. PHYSICAL EXAMINATION: GENERAL: This is a delightful elderly woman. She initially was intubated. She is alert and oriente d, extubated, and doing well. VITAL SIGNS: Blood pressure 105/62, pulse 100-110, sinus. EYES: Sclerae are nonicteric. Mouth mucous membranes moist. NECK: Supple, no lymphadenopathy. LUNGS: Clear, no wheezing, rales, or rhonchi. CARDIOVASCULAR: Normal S1, normal S2. No murmur, rub, or gallop. ABDOMEN: Soft, nontender. No hepatosplenomegaly. EXTREMITIES: Warm, dry. No clubbing, or cyanosis. There is only mild edema. PERTINENT LABORATORY AND X-RAY FINDINGS: Potassium is 4.0. Creatinine is 0.74. The echocardiogram showed normal left ventricular function with an ejection fraction of 55%. ASSESSMENT: 1. Longstanding sarcoid. 2. Intermittent supraventricular dysrhythmia, probably from the right side of her heart. 3. Intolerance to beta blockers due to sarcoid. 4. Intolerance to digoxin due to upset stomach. PLAN: Try diltiazem CD 120 mg a day. Hopefully, this does not cause much in the way of swelling. G enerally, this patient is difficult to do ablations on. She probably has an elevated right heart pre ssures which sometimes leads to a variety of different atrial tachycardias.
[2017-10-04] MEDS: Mometasone/Formoterol 120 PUFF INHALER INH SCH ×2 (06:15→19:11)
--- NOTE | 2017-10-04 07:49 | RAD ---
PORTABLE CHEST: DATE: 10/04/17. PROVIDED CLINICAL HISTORY: Respiratory insufficiency. FINDINGS: Comparison is made with the study dated 10/03/17. Cardiac and mediastinal silhouette is unchanged in appearance. Interval removal of central line. Perihilar mass-like opacity is similar to prior study . Prominence of the pulmonary interstitium is redemonstrated. No definite focal airspace disease, p leural fluid, or pneumothorax apparent. IMPRESSION: Interval removal of central line. Otherwise, stable exam. POS: [facility]
[2017-10-04] MEDS: Valsartan 80 MG TAB PO SCH (09:35)
[2017-10-04] MEDS: predniSONE 20 MG TAB PO SCH (09:35)
[2017-10-04] MEDS: Furosemide 20 MG TAB PO SCH (09:36)
[2017-10-04] MEDS: Cefdinir 300 MG CAP PO SCH ×2 (09:36→21:06)
[2017-10-04] MEDS: Spironolactone 100 MG TAB PO SCH (09:36)
[2017-10-04] MEDS: Hydrochlorothiazide 25 MG TAB PO SCH (09:38)
[2017-10-04] MEDS: OPSUMIT 10 MG TABLET PO SCH (09:43)
[2017-10-04] MEDS: ADCIRCA 20 MG PO SCH (09:54)
--- NOTE | 2017-10-04 11:34 | PRG ---
DATE OF SERVICE: 10/04/2017 SUBJECTIVE: This morning, she is better, less short of breath, less coughing, wheezing. OBJECTIVE: VITAL SIGNS: Sats are 91 on 4 liters, pulse 101, temperature 98, blood pressure 100/70. CHEST: Decreased breath sounds, no wheezing. CARDIAC: Normal S1, S2. No gallops. ABDOMEN: Soft, no masses. IMPRESSION: Respiratory failure, superimposed bronchospasm, asthma, underlying I AND D. Extensive scarring in the right lung and evidence of pulmonary hypertension. PLAN: Switch over to oral prednisone, ambulate, antibiotics, supportive care. Hopefully, she can be discharged home in the next 24-48 hours.
--- NOTE | 2017-10-04 12:23 | PDOC.FM ---
- Subjective Subjective: Patient found sitting in a chair, on 3 L of oxygen, and talking easily without SOB. She state she feels well, no CP or noticeable palpitation. - Objective MAR Reviewed: Yes Vital Signs & Weight: Vital Signs (12 hours) Temp Pulse Resp BP BP Pulse Ox 10/04/17 09:41 116 H 126/60 10/04/17 09:30 104 H 20 91 L 10/04/17 06:15 104 H 20 96 10/04/17 06:13 104 H 20 96 10/04/17 03:47 98.5 F 102 H 21 H 121/70 100 10/04/17 02:39 104 H 20 96 Weight Admit Weight 99.337 kg Weight 101.605 kg Most Recent Monitor Data Heart Rate from ECG 110 NIBP 125/80 NIBP BP-Mean 98 Respiration from ECG 19 SpO2 90 I&O: 10/03/17 10/04/17 10/05/17 06:59 06:59 06:59 Intake Total 926 1080 Output Total 2930 100 Balance -2003 980 Result Diagrams: 10/03/17 05:11 10/03/17 05:11 <Darin Gillespie M - Last Filed: 10/04/17 12:22> - Objective Vital Signs & Weight: Vital Signs (12 hours) Temp Pulse Resp BP BP Pulse Ox 10/04/17 13:29 110 H 20 96 10/04/17 11:48 99.4 F 127 H 18 107/57 L 80 L 10/04/17 09:41 116 H 126/60 10/04/17 09:30 104 H 20 91 L 10/04/17 08:00 98.3 F 116 H 20 91 L 10/04/17 06:15 104 H 20 96 10/04/17 06:13 104 H 20 96 10/04/17 03:47 98.5 F 102 H 21 H 121/70 100 Weight Admit Weight 99.337 kg Weight 101.605 kg Most Recent Monitor Data Heart Rate from ECG 110 NIBP 125/80 NIBP BP-Mean 98 Respiration from ECG 19 SpO2 90 I&O: 10/03/17 10/04/17 10/05/17 06:59 06:59 06:59 Intake Total 926 1080 Output Total 2930 100 Balance 980 Result Diagrams: 10/03/17 05:11 10/03/17 05:11 <Emma,Felipe - Last Filed: 10/04/17 14:52> Phys Exam - Physical Examination Constitutional: NAD HEENT: moist MMs Neck: no nodes Respiratory: no rales Wheezing present Cardiovascular: no significant murmur Tachycardic, irregular Gastrointestinal: soft, non-tender, no distention Musculoskeletal: no edema Neurological: moves all 4 limbs Lymphatic: no nodes Psychiatric: normal affect Skin: no rash, cap refill <2 seconds <Darin Gillespie M - Last Filed: 10/04/17 12:22> Dx/Plan (1) Acute on chronic respiratory failure with hypoxia and hypercapnia Code(s): J96.21 - ACUTE AND CHRONIC RESPIRATORY FAILURE WITH HYPOXIA; J96.22 - ACUTE AND CHRONIC RESPIRATORY FAILURE WITH HYPERCAPNIA Status: Chronic Plan: She is on 3L of oxygen but says that at home she is usually on 4 L. Will continue to monitor her. She had her central line, anderson DC. Is tolerating PO without issue. (2) Atrial fib/flutter, transient Code(s): OLB9607 - Status: Acute Plan: She has had recurrence of what appear to be SVT. She is on digoxin at home. Cardiology had held that and started diltiazem DC 120. (3) CAP (community acquired pneumonia) Code(s): J18.9 - PNEUMONIA, UNSPECIFIED ORGANISM Status: Acute QualifierTitle: Laterality: right Lung location: upper lobe of lung Qualified Code(s): J18.1 - Lobar pneumonia, unspecified organism Plan: Currently on rocephin and azithromycin. Will continue with steroid, abx and duoneb. She feels back to her baseline. No culture growth at this time. (4) Pulmonary hypertension associated with sarcoidosis Code(s): I27.29 - OTHER SECONDARY PULMONARY HYPERTENSION; D86.9 - SARCOIDOSIS, UNSPECIFIED Status: Chronic Plan: Continuing with steroid. Appreciate pulm rec. When she does get discharge, will continue her home steroid. (5) Ileus Code(s): K56.7 - ILEUS, UNSPECIFIED Status: Acute Plan: She has had no vomiting. She has had easy BM yesterday. (6) Hypertension Code(s): I10 - ESSENTIAL (PRIMARY) HYPERTENSION Status: Chronic Plan: Continue home medication. <Ly,Darin M - Last Filed: 10/04/17 12:22> Attending Addendum - Attending Addendum I personally evaluated the patient and discussed the management with Dr. Gillespie. I agree with and repeated the History, Examination, Assessment and Plan documented above with any addition or exceptions noted below. Improving from a respiratory standpoint. Now with SVT. On rounds NSR, then when walking by telemetry she was in and out of SVT, up to 160-170. She subsequently was back in sinus in the 110's. Asymptomatic, no sensation of palpitations or chest pain or shortness of breath. Just received diltiazem and cards does not feel any need for change in management. <Felipe Carter - Last Filed: 10/04/17 14:52>
[2017-10-04] MEDS ORDERED: Diltiazem HCl SR 60 mg Capsule PO SCH (14:15)
--- NOTE | 2017-10-04 14:23 | PDOC.CTH ---
<Lizeth Sue - Last Filed: 10/04/17 14:31> Cardiology Progress Note - Subjective The pt seen and examined. No overnight events. No cardiac complaints. She had mild SOB while she was taking a shower. S/p 30 sec. SVT today. The pt was asymptomatic during the episode. - Objective Vital Signs Temp Pulse Resp BP BP Pulse Ox 10/04/17 13:29 110 H 20 96 10/04/17 11:48 99.4 F 127 H 18 107/57 L 80 L 10/04/17 09:41 116 H 126/60 10/04/17 09:30 104 H 20 91 L 10/04/17 08:00 98.3 F 116 H 20 91 L 10/04/17 06:15 104 H 20 96 10/04/17 06:13 104 H 20 96 10/04/17 03:47 98.5 F 102 H 21 H 121/70 100 10/04/17 02:39 104 H 20 96 Admit Weight 219 lb Weight 224 lb 10/03/17 10/04/17 10/05/17 06:59 06:59 06:59 Intake Total 926 1080 Output Total 2930 100 Balance -2004 980 - Physical Examination General/Neuro: alert & oriented x3 Neck: no JVD present Lungs: other: (very diminished at bases) Heart: RRR Abdomen: soft Extremities: other: (No edema) - Telemetry Telemetry Rhythm: ST 100-120s - Labs Result Diagrams: 10/03/17 05:11 10/03/17 05:11 Troponin/CKMB CK-MB (CK-2) 3.7 ng/mL (0-6.6) 09/25/17 14:51 Troponin I 0.060 ng/mL (< 0.028) H 09/25/17 21:16 - Assessment/Plan 1. S/p SVT - 1 episode of SVT and 30 sec. SVT with HR up to 200 today. The pt was asymptomatic; Increase Diltiazem from 120mg to 180mg daily; cont. monitor on tele 2. Acute on chronic respiratory failure 2nday to Sarcoidosis, Pulm. HTN and PNA - on 3LNC with antibiotics; Keep O2 sat > 88% per regulatory law specialist; she uses home O2; managed by regulatory law specialist 3. Community Acquired PNA - stable with 3LNC and antibiotics and steroid; managed by regulatory law specialist 4. HTN - stable with current medication; cont. monitor 5. DM type 2 - not on ACHS BG check; she is on Metformin at home; MAR Reviewed Review of Systems - Review of Systems Constitutional: reports: no symptoms reported EENTM: reports: no symptoms reported Respiratory: reports: see HPI Cardiac (ROS): reports: no symptoms reported ABD/GI: reports: no symptoms reported : reports: no symptoms reported Skin: reports: no symptoms reported Neurological: reports: no symptoms reported <Rasheeda Rodgers - Last Filed: 10/04/17 18:21> Cardiology Progress Note - Objective Vital Signs Temp Pulse Resp BP BP Pulse Ox 10/04/17 15:53 98.3 F 110 H 18 118/72 84 L 10/04/17 13:29 110 H 20 96 10/04/17 11:48 99.4 F 127 H 18 107/57 L 80 L 10/04/17 09:41 116 H 126/60 10/04/17 09:30 104 H 20 91 L 10/04/17 08:00 98.3 F 116 H 20 91 L Admit Weight 219 lb Weight 224 lb 10/03/17 10/04/17 10/05/17 06:59 06:59 06:59 Intake Total 926 1080 240 Output Total 2930 100 Balance -2004 980 240 - Labs Result Diagrams: 10/03/17 05:11 10/03/17 05:11 Troponin/CKMB CK-MB (CK-2) 3.7 ng/mL (0-6.6) 09/25/17 14:51 Troponin I 0.060 ng/mL (< 0.028) H 09/25/17 21:16 - Assessment/Plan P I agree with the A/POt. seen and eval. by me. She continues to have sinus tachycardia due to her underlying medical issues. She occasionally has SVT with HR's up to 200 bpm. The diltiazem has decreased the events. She may need an EP eval. and ablation of the SVT. I agree with the A/P by the CODE ENFORCEMENT SUPERVISOR.
[2017-10-04] MEDS: Enoxaparin Sodium 40 MG/0.4 ML SYRINGE SC SCH (21:06)
[2017-10-04] MEDS: ALPRAZolam 0.5 MG TAB PO SCH (21:06)
[2017-10-05] MEDS: Mometasone/Formoterol 120 PUFF INHALER INH SCH ×2 (07:10→19:14)
[2017-10-05 08:29] VITALS: BMI 35.4
[2017-10-05] MEDS: predniSONE 20 MG TAB PO SCH (09:06)
[2017-10-05] MEDS: Cefdinir 300 MG CAP PO SCH ×2 (09:07→20:28)
[2017-10-05] MEDS: ADCIRCA 20 MG PO SCH (09:10)
[2017-10-05] MEDS: OPSUMIT 10 MG TABLET PO SCH (09:11)
--- NOTE | 2017-10-05 10:54 | PDOC.CTH ---
<Lizeth Sue - Last Filed: 10/05/17 10:51> Cardiology Progress Note - Subjective The pt seen and examined. No overnight events. No cardiac complaints. Her HR has been 110-120s even she is sitting and relaxing at this time. - Objective Vital Signs Temp Pulse Resp BP BP Pulse Ox 10/05/17 10:43 85 15 92 L 10/05/17 09:15 99/65 10/05/17 08:00 98.4 F 97 18 92/62 94 L 10/05/17 07:08 91 16 95 10/05/17 04:02 94 L 10/05/17 04:00 97.2 F L 85 20 96/52 L 98 10/05/17 00:00 98.7 F 107 H 18 95/71 93 L 10/04/17 23:34 95 Admit Weight 219 lb 12.814 oz Weight 213 lb 10/04/17 10/05/17 10/06/17 06:59 06:59 06:59 Intake Total 1080 1200 Output Total 100 500 Balance 980 700 - Physical Examination General/Neuro: alert & oriented x3 Neck: no JVD present Lungs: other: (diminished at bases) Extremities: other: (No edema) - Telemetry Telemetry Rhythm: ST/MAT HR 110-120s - Labs Result Diagrams: 10/03/17 05:11 10/03/17 05:11 Troponin/CKMB CK-MB (CK-2) 3.7 ng/mL (0-6.6) 09/25/17 14:51 Troponin I 0.060 ng/mL (< 0.028) H 09/25/17 21:16 - Assessment/Plan 1. S/p SVT - HR today has been 110-120s. Hx of 2 episodes of SVT with HR up to 200 on 10/03/17 and 10/04/17. The pt was asymptomatic; EP consult will be ordered. cont. monitor on tele 2. Acute on chronic respiratory failure 2nday to Sarcoidosis, Pulm. HTN and PNA - on 2.5LNC with antibiotics; Keep O2 sat > 88% per break out man; she uses home O2; managed by break out man 3. Community Acquired PNA - stable with 2.5LNC and antibiotics and steroid; managed by break out man 4. HTN - stable with current medication; cont. monitor 5. DM type 2 - not on ACHS BG check; she is on Metformin at home; MAR Reviewed Review of Systems - Review of Systems Constitutional: reports: no symptoms reported EENTM: reports: no symptoms reported Respiratory: reports: see HPI Cardiac (ROS): reports: no symptoms reported ABD/GI: reports: no symptoms reported : reports: no symptoms reported <Rasheeda Rodgers - Last Filed: 10/05/17 15:33> Cardiology Progress Note - Objective Vital Signs Temp Pulse Resp BP BP Pulse Ox 10/05/17 12:00 98.6 F 85 16 118/64 94 L 10/05/17 10:43 85 15 92 L 10/05/17 09:15 99/65 10/05/17 08:00 98.6 F 85 16 92/62 94 L 10/05/17 07:08 91 16 95 10/05/17 04:02 94 L 10/05/17 04:00 97.2 F L 85 20 96/52 L 98 Admit Weight 219 lb 12.814 oz Weight 213 lb 10/04/17 10/05/17 10/06/17 06:59 06:59 06:59 Intake Total 1080 1200 Output Total 100 500 Balance 980 700 - Labs Result Diagrams: 10/03/17 05:11 10/03/17 05:11 Troponin/CKMB CK-MB (CK-2) 3.7 ng/mL (0-6.6) 09/25/17 14:51 Troponin I 0.060 ng/mL (< 0.028) H 09/25/17 21:16 - Assessment/Plan Pt. seen and eval. by me. I agree with the A/P by the CLAIM SERVICE REPRESENTATIVE.The HR is better controlled. She continues to have an occasional tachycardia for short periods. continue diltiazem.
[2017-10-05] MEDS: Valsartan 80 MG TAB PO SCH (12:19)
[2017-10-05] MEDS: Hydrochlorothiazide 25 MG TAB PO SCH (12:19)
[2017-10-05] MEDS: Spironolactone 100 MG TAB PO SCH (12:24)
[2017-10-05] MEDS: Furosemide 20 MG TAB PO SCH (12:24)
--- NOTE | 2017-10-05 12:56 | PDOC.FM ---
- Subjective Subjective: Patient is feeling well, on 2L of O2, and sitting in chair - Objective MAR Reviewed: Yes Vital Signs & Weight: Vital Signs (12 hours) Temp Pulse Resp BP BP Pulse Ox 10/05/17 10:43 85 15 92 L 10/05/17 09:15 99/65 10/05/17 08:00 98.4 F 97 18 92/62 94 L 10/05/17 07:08 91 16 95 10/05/17 04:02 94 L 10/05/17 04:00 97.2 F L 85 20 96/52 L 98 Weight Admit Weight 99.7 kg Weight 96.615 kg Most Recent Monitor Data Heart Rate from ECG 110 NIBP 125/80 NIBP BP-Mean 98 Respiration from ECG 19 SpO2 90 I&O: 10/04/17 10/05/17 10/06/17 06:59 06:59 06:59 Intake Total 1080 1200 Output Total 100 500 Balance 980 700 Result Diagrams: 10/03/17 05:11 10/03/17 05:11 <Darin Gillespie - Last Filed: 10/05/17 12:55> - Objective Vital Signs & Weight: Vital Signs (12 hours) Temp Pulse Resp BP BP Pulse Ox 10/05/17 12:00 98.6 F 85 16 118/64 94 L 10/05/17 10:43 85 15 92 L 10/05/17 09:15 99/65 10/05/17 08:00 98.6 F 85 16 92/62 94 L 10/05/17 07:08 91 16 95 10/05/17 04:02 94 L 10/05/17 04:00 97.2 F L 85 20 96/52 L 98 Weight Admit Weight 219 lb 12.814 oz Weight 213 lb Most Recent Monitor Data Heart Rate from ECG 110 NIBP 125/80 NIBP BP-Mean 98 Respiration from ECG 19 SpO2 90 I&O: 10/04/17 10/05/17 10/06/17 06:59 06:59 06:59 Intake Total 1080 1200 Output Total 100 500 Balance 980 700 Result Diagrams: 10/03/17 05:11 10/03/17 05:11 <Rasheeda Rodgers - Last Filed: 10/05/17 15:28> - Objective Vital Signs & Weight: Vital Signs (12 hours) Temp Pulse Resp BP BP Pulse Ox 10/05/17 19:14 93 L 10/05/17 19:08 92 L 10/05/17 16:00 99.2 F 114 H 16 97/52 L 93 L 10/05/17 15:46 110 H 16 10/05/17 12:00 98.6 F 85 16 118/64 94 L 10/05/17 10:43 85 15 92 L 10/05/17 09:15 99/65 Weight Admit Weight 99.7 kg Weight 96.615 kg Most Recent Monitor Data Heart Rate from ECG 110 NIBP 125/80 NIBP BP-Mean 98 Respiration from ECG 19 SpO2 90 I&O: 10/04/17 10/05/17 10/06/17 06:59 06:59 06:59 Intake Total 1080 1200 Output Total 100 500 Balance 980 700 Result Diagrams: 10/03/17 05:11 10/03/17 05:11 <Felipe Carter - Last Filed: 10/05/17 20:11> Phys Exam - Physical Examination Constitutional: NAD HEENT: moist MMs Neck: no nodes, supple Respiratory: no wheezing, no rales, no rhonchi, clear to auscultation bilateral Cardiovascular: no significant murmur Irregular Gastrointestinal: soft, no distention, positive bowel sounds Musculoskeletal: no edema Neurological: non-focal, moves all 4 limbs Lymphatic: no nodes Psychiatric: normal affect Skin: no rash <Darin Gillespie - Last Filed: 10/05/17 12:55> Dx/Plan (1) Acute on chronic respiratory failure with hypoxia and hypercapnia Code(s): J96.21 - ACUTE AND CHRONIC RESPIRATORY FAILURE WITH HYPOXIA; J96.22 - ACUTE AND CHRONIC RESPIRATORY FAILURE WITH HYPERCAPNIA Status: Chronic Plan: She is on 2L of oxygen but says that at home she is usually on 4 L. Will continue to monitor her. Is tolerating PO without issue. (2) Atrial fib/flutter, transient Code(s): KGW1469 - Status: Acute Plan: She has had recurrence of what appear to be SVT. She is on digoxin at home. Cardiology had held that and increased dilt to 180/ (3) CAP (community acquired pneumonia) Code(s): J18.9 - PNEUMONIA, UNSPECIFIED ORGANISM Status: Acute QualifierTitle: Laterality: right Lung location: upper lobe of lung Qualified Code(s): J18.1 - Lobar pneumonia, unspecified organism Plan: On rocephin and azithromycin. Will continue with steroid, abx and duoneb. She feels back to her baseline. No culture growth at this time. W (4) Pulmonary hypertension associated with sarcoidosis Code(s): I27.29 - OTHER SECONDARY PULMONARY HYPERTENSION; D86.9 - SARCOIDOSIS, UNSPECIFIED Status: Chronic Plan: Continuing with steroid. Appreciate pulm rec. When she does get discharge, will continue her home steroid. (5) Ileus Code(s): K56.7 - ILEUS, UNSPECIFIED Status: Acute Plan: She has no complaint of emesis or constipation. (6) Hypertension Code(s): I10 - ESSENTIAL (PRIMARY) HYPERTENSION Status: Chronic Plan: Continue home medication. She is not having hypertension. <Darin Gillespie - Last Filed: 10/05/17 12:55> Attending Addendum - Attending Addendum I personally evaluated the patient and discussed the management with Dr. Gillespie. I agree with and repeated the History, Examination, Assessment and Plan documented above with any addition or exceptions noted below. Doing very well this morning and in good spirits. No cp/palps. Feels like her breathing is doing well. No f/c. No n/v/dr/const. Continue O2/pred/nebs. Continue dilt and monitor HR. Await EP consultation. DVT and GI ppx. <Felipe Carter - Last Filed: 10/05/17 20:11>
[2017-10-05] MEDS: Enoxaparin Sodium 40 MG/0.4 ML SYRINGE SC SCH (20:28)
[2017-10-05] MEDS: ALPRAZolam 0.5 MG TAB PO SCH (20:28)
[2017-10-06] MEDS: Mometasone/Formoterol 120 PUFF INHALER INH SCH ×2 (06:47→18:37)
--- NOTE | 2017-10-06 07:41 | PDOC.FM ---
- Subjective Subjective: Patient reports that she is back at her baseline breathing status. She is on 3- 4 L O2 at home. She denies any palpitations, dizziness, CP, lightheadedness, edema, N/V. She is tolerating PO well. - Objective MAR Reviewed: Yes Vital Signs & Weight: Vital Signs (12 hours) Temp Pulse Resp BP Pulse Ox 10/06/17 06:51 97 16 95 10/06/17 06:47 97 16 95 10/06/17 04:22 96 10/06/17 04:00 97.5 F L 80 18 108/61 95 10/06/17 00:00 98.6 F 104 H 18 118/59 L 95 10/05/17 23:06 98 10/05/17 20:00 99.2 F 102 H 20 107/57 L 98 Weight Admit Weight 99.7 kg Weight 96.388 kg Most Recent Monitor Data Heart Rate from ECG 110 NIBP 125/80 NIBP BP-Mean 98 Respiration from ECG 19 SpO2 90 I&O: 10/05/17 10/06/17 10/07/17 06:59 06:59 06:59 Intake Total 1200 360 Output Total 500 620 Balance 700 -260 Result Diagrams: 10/03/17 05:11 10/03/17 05:11 <Anabel Contreras - Last Filed: 10/06/17 07:39> - Objective Vital Signs & Weight: Vital Signs (12 hours) Temp Pulse Resp BP BP Pulse Ox 10/06/17 10:18 99 16 99 10/06/17 08:53 98.0 F 103 H 22 H 100/68 100 10/06/17 08:03 98 F 99 16 10/06/17 06:51 97 16 95 10/06/17 06:47 97 16 95 10/06/17 04:22 96 10/06/17 04:00 97.5 F L 80 18 108/61 95 Weight Admit Weight 99.7 kg Weight 96.388 kg Most Recent Monitor Data Heart Rate from ECG 110 NIBP 125/80 NIBP BP-Mean 98 Respiration from ECG 19 SpO2 90 I&O: 10/05/17 10/06/17 10/07/17 06:59 06:59 06:59 Intake Total 1200 360 Output Total 500 620 Balance 700 -260 Result Diagrams: 10/03/17 05:11 10/03/17 05:11 <Felipe Carter - Last Filed: 10/06/17 12:14> Phys Exam - Physical Examination Constitutional: NAD HEENT: moist MMs Respiratory: wheezing present rales bilaterally Cardiovascular: no significant murmur tachycardic Gastrointestinal: soft, non-tender, no distention, positive bowel sounds Musculoskeletal: no edema, pulses present Neurological: non-focal, moves all 4 limbs Psychiatric: normal affect, A&O x 3 <Anabel Contreras - Last Filed: 10/06/17 07:39> Dx/Plan (1) Paroxysmal SVT (supraventricular tachycardia) Code(s): I47.1 - SUPRAVENTRICULAR TACHYCARDIA Status: Acute Plan: Transient SVT with rate up to 200s -Cards consulted, appreciate recs -EP consulted appreciate recs -Dig has been held, dilt has been increased Patient has been in sinus and sinus tach in past 24 hours, asymptomatic (2) CAP (community acquired pneumonia) Code(s): J18.9 - PNEUMONIA, UNSPECIFIED ORGANISM Status: Acute QualifierTitle: Laterality: right Lung location: upper lobe of lung Qualified Code(s): J18.1 - Lobar pneumonia, unspecified organism Plan: Patient clinically improving, at baseline respiratory status -Cefdinir day 4 -Prednisone day 3 s/p 5 days of zosyn, 4 days of rocephin and 2 days of azithromycin Consider stopping abx today as patient has had 10 days of abx and is back at baseline respiratory status (3) Acute on chronic respiratory failure with hypoxia and hypercapnia Code(s): J96.21 - ACUTE AND CHRONIC RESPIRATORY FAILURE WITH HYPOXIA; J96.22 - ACUTE AND CHRONIC RESPIRATORY FAILURE WITH HYPERCAPNIA Status: Chronic Plan: On 3-4 L O2 at home, patient is back at baseline respiratory status. Her chronic respiratory failure is 2/2 sarcoidosis. (4) Pulmonary hypertension associated with sarcoidosis Code(s): I27.29 - OTHER SECONDARY PULMONARY HYPERTENSION; D86.9 - SARCOIDOSIS, UNSPECIFIED Status: Chronic Plan: Continue steroids [place] has been consulted, appreciate recs (5) Diabetes Code(s): E11.9 - TYPE 2 DIABETES MELLITUS WITHOUT COMPLICATIONS Status: Chronic QualifierTitle: Diabetes mellitus type: type 2 Diabetes mellitus complication status: without complication Diabetes mellitus jail insulin use: without jail use Qualified Code(s): E11.9 - Type 2 diabetes mellitus without complications Plan: Continue home meds SSI Accuchecks (6) Hypertension Code(s): I10 - ESSENTIAL (PRIMARY) HYPERTENSION Status: Chronic QualifierTitle: Hypertension type: essential hypertension Qualified Code( s): I10 - Essential (primary) hypertension Plan: Cont home meds <Anabel Contreras - Last Filed: 10/06/17 07:39> Attending Addendum - Attending Addendum I personally evaluated the patient and discussed the management with Dr. Moreno and team. I agree with and repeated the History, Examination, Assessment and Plan documented above with any addition or exceptions noted below. Doing well this morning. Lungs relatively clear. Intermittently tachy on monitor. D/c antibiotics, continue steroids per pulm. Await EP. <Felipe Carter - Last Filed: 10/06/17 12:14>
[2017-10-06] MEDS: Valsartan 80 MG TAB PO SCH (08:41)
[2017-10-06] MEDS: predniSONE 20 MG TAB PO SCH (08:41)
[2017-10-06] MEDS: Cefdinir 300 MG CAP PO SCH (08:41)
[2017-10-06] MEDS: Spironolactone 100 MG TAB PO SCH (08:42)
[2017-10-06] MEDS: Furosemide 20 MG TAB PO SCH (08:42)
[2017-10-06] MEDS: OPSUMIT 10 MG TABLET PO SCH (08:49)
[2017-10-06] MEDS: ADCIRCA 20 MG PO SCH (08:49)
--- NOTE | 2017-10-06 19:09 | PRG ---
DATE OF SERVICE: 10/06/2017 SUBJECTIVE: A 51-year-old female. She is better. OBJECTIVE: VITAL SIGNS: Sats are 97% on 3 liters, respirations 18, temperature 98%, blood pressure 97/66. CHEST: Bilateral crackles. CARDIAC: Normal S1 and S2. No gallops. IMPRESSION: 1. Pulmonary hypertension. 2. Sarcoidosis with respiratory failure. She is much improved. From the pulmonary standpoint of view, discharge home any time.
[2017-10-06] MEDS: ALPRAZolam 0.5 MG TAB PO SCH (21:22)
[2017-10-06] MEDS: Enoxaparin Sodium 40 MG/0.4 ML SYRINGE SC SCH (21:22)
[2017-10-06] MEDS: Scopolamine 1.5 mg/72 hour Patch TD SCH (23:56)
[2017-10-07] MEDS ORDERED: HumaLOG 300 UNITS/3 ML VIAL SC PRN (06:13)
[2017-10-07] MEDS: Mometasone/Formoterol 120 PUFF INHALER INH SCH ×2 (06:25→19:00)
--- NOTE | 2017-10-07 07:35 | PDOC.FM ---
- Subjective Subjective: Patient reports that her breathing is doing well today. She has been up working with PT without difficulty. She denies palpitations or chest pain. She is eating and drinking without difficulty. - Objective MAR Reviewed: Yes Vital Signs & Weight: Vital Signs (12 hours) Temp Pulse Resp BP Pulse Ox 10/07/17 06:28 75 16 99 10/07/17 06:25 75 16 99 10/07/17 04:00 97.9 F 73 16 102/55 L 92 L 10/07/17 02:50 94 16 97 10/07/17 00:00 98.9 F 100 20 99/57 L 96 10/06/17 22:51 103 H 16 96 10/06/17 20:00 98.3 F 95 20 123/72 93 L Weight Admit Weight 99.7 kg Weight 97.069 kg Most Recent Monitor Data Heart Rate from ECG 110 NIBP 125/80 NIBP BP-Mean 98 Respiration from ECG 19 SpO2 90 I&O: 10/06/17 10/07/17 10/08/17 06:59 06:59 06:59 Intake Total 360 2160 Output Total 620 690 Balance -260 1470 Result Diagrams: 10/03/17 05:11 10/03/17 05:11 <Anabel Contreras - Last Filed: 10/07/17 07:33> - Objective Vital Signs & Weight: Vital Signs (12 hours) Temp Pulse Resp BP BP Pulse Ox 10/07/17 07:30 99.1 F 84 16 99/57 L 92 L 10/07/17 06:28 75 16 99 10/07/17 06:25 75 16 99 10/07/17 04:00 97.9 F 73 16 102/55 L 92 L 10/07/17 02:50 94 16 97 10/07/17 00:00 98.9 F 100 20 99/57 L 96 Weight Admit Weight 99.7 kg Weight 97.069 kg Most Recent Monitor Data Heart Rate from ECG 110 NIBP 125/80 NIBP BP-Mean 98 Respiration from ECG 19 SpO2 90 I&O: 10/06/17 10/07/17 10/08/17 06:59 06:59 06:59 Intake Total 360 2160 Output Total 620 690 Balance -260 1470 Result Diagrams: 10/03/17 05:11 10/03/17 05:11 <Felipe Carter - Last Filed: 10/07/17 11:00> Phys Exam - Physical Examination Constitutional: NAD HEENT: moist MMs Respiratory: wheezing present (with scattered rhonchi) Cardiovascular: RRR, no significant murmur, no rub Gastrointestinal: soft, non-tender, no distention, positive bowel sounds Musculoskeletal: edema present (trace edema) Neurological: non-focal, moves all 4 limbs Psychiatric: normal affect, A&O x 3 <Anabel Contreras - Last Filed: 10/07/17 07:33> Dx/Plan (1) Paroxysmal SVT (supraventricular tachycardia) Code(s): I47.1 - SUPRAVENTRICULAR TACHYCARDIA Status: Acute Plan: Transient SVT with rate up to 200s -Cards consulted, appreciate recs -EP consulted appreciate recs -Dig has been held, dilt has been increased Patient has been in sinus and sinus tach with PAC's in past 48 hours, asymptomatic (2) CAP (community acquired pneumonia) Code(s): J18.9 - PNEUMONIA, UNSPECIFIED ORGANISM Status: Acute QualifierTitle: Laterality: right Lung location: upper lobe of lung Qualified Code(s): J18.1 - Lobar pneumonia, unspecified organism Plan: Patient clinically improving, at baseline respiratory status -Abx discontinued after 10 day course -Prednisone (3) Acute on chronic respiratory failure with hypoxia and hypercapnia Code(s): J96.21 - ACUTE AND CHRONIC RESPIRATORY FAILURE WITH HYPOXIA; J96.22 - ACUTE AND CHRONIC RESPIRATORY FAILURE WITH HYPERCAPNIA Status: Chronic Plan: On 3-4 L O2 at home, patient is back at baseline respiratory status. Her chronic respiratory failure is 2/2 sarcoidosis. (4) Pulmonary hypertension associated with sarcoidosis Code(s): I27.29 - OTHER SECONDARY PULMONARY HYPERTENSION; D86.9 - SARCOIDOSIS, UNSPECIFIED Status: Chronic Plan: Continue steroids [place] with pulmonology has been consulted, appreciate recs (5) Diabetes Code(s): E11.9 - TYPE 2 DIABETES MELLITUS WITHOUT COMPLICATIONS Status: Chronic QualifierTitle: Diabetes mellitus type: type 2 Diabetes mellitus complication status: without complication Diabetes mellitus local company intermodal truck driver insulin use: without local company intermodal truck driver use Qualified Code(s): E11.9 - Type 2 diabetes mellitus without complications Plan: Continue home metformin SSI Accuchecks (6) Hypertension Code(s): I10 - ESSENTIAL (PRIMARY) HYPERTENSION Status: Chronic QualifierTitle: Hypertension type: essential hypertension Qualified Code( s): I10 - Essential (primary) hypertension Plan: Cont home meds <Anabel Contreras - Last Filed: 10/07/17 07:33> Attending Addendum - Attending Addendum I personally evaluated the patient and discussed the management with Dr. Flores. I agree with and repeated the History, Examination, Assessment and Plan documented above with any addition or exceptions noted below. Doing well this AM. Had a run of MAT/SVT overnight with some lowering of BP likely related to medication admin as well. Currently doing well and spironolactone held. From a respiratory standpoint she has improved and we will continue prednisone per pulm, as well as nebs PRN. We await EP's recommendations, however, concerning her arrhythmia. DVT and GI ppx. <Felipe Carter - Last Filed: 10/07/17 11:00>
[2017-10-07] MEDS: predniSONE 20 MG TAB PO SCH (08:57)
[2017-10-07] MEDS: Furosemide 20 MG TAB PO SCH (08:57)
[2017-10-07] MEDS: Valsartan 80 MG TAB PO SCH (08:57)
[2017-10-07] MEDS: metFORMIN 500 MG TAB PO SCH (08:57)
[2017-10-07] MEDS: OPSUMIT 10 MG TABLET PO SCH (09:14)
[2017-10-07] MEDS: ADCIRCA 20 MG PO SCH (09:15)
[2017-10-07] MEDS: Spironolactone 100 MG TAB PO SCH (10:04)
--- NOTE | 2017-10-07 17:28 | PRG ---
DATE OF SERVICE: 10/07/2017 SUBJECTIVE: Alexandro is better, less pain, less shortness of breath. OBJECTIVE: VITAL SIGNS: Sats 98 on 3 liters, temperature 98, blood pressure 140/56. CHEST: Decreased breath sounds, no wheezing. CARDIAC: Normal S1, S2. No gallops. ABDOMEN: Soft. No masses. IMPRESSION: 1. Resting tachycardia. 2. Pulmonary hypertension. 3. Interstitial lung disease. 4. Respiratory failure. PLAN: We are awaiting input from my EP people about disposition; otherwise, she can be discharged ho me anytime.
[2017-10-07] MEDS ORDERED: Digoxin 0.125 MG TAB PO SCH (19:45)
[2017-10-07] MEDS: ALPRAZolam 0.5 MG TAB PO SCH (20:58)
[2017-10-07] MEDS: Enoxaparin Sodium 40 MG/0.4 ML SYRINGE SC SCH (20:58)
[2017-10-08] MEDS: Mometasone/Formoterol 120 PUFF INHALER INH SCH (06:54)
--- NOTE | 2017-10-08 08:47 | PDOC.FM ---
- Subjective Subjective: Occasional runs of tachycardia overnight, MAT vs SVT, pt remains asymptomatic. She reports she is feeling better this AM and feels her respiratory status is back to normal. Denies CP, SOB, NVDC. Denies swelling, palpitations. - Objective Vital Signs & Weight: Vital Signs (12 hours) Temp Pulse Resp BP BP Pulse Ox 10/08/17 06:54 100 16 97 10/08/17 06:52 100 16 97 10/08/17 03:34 99.1 F 78 20 112/59 L 97 10/08/17 02:20 87 16 99 10/07/17 23:38 98.5 F 94 20 106/56 L 95 10/07/17 22:25 65 16 100 Weight Admit Weight 99.7 kg Weight 96.661 kg Most Recent Monitor Data Heart Rate from ECG 110 NIBP 125/80 NIBP BP-Mean 98 Respiration from ECG 19 SpO2 90 I&O: 10/07/17 10/08/17 10/09/17 06:59 06:59 06:59 Intake Total 2160 1680 Output Total 690 2000 Balance 1470 -320 Result Diagrams: 10/03/17 05:11 10/03/17 05:11 <Galo Carrion - Last Filed: 10/08/17 08:45> - Objective Vital Signs & Weight: Vital Signs (12 hours) Temp Pulse Pulse Pulse Resp BP BP 10/08/17 11:45 98.6 F 90 17 10/08/17 10:57 87 16 10/08/17 10:15 111 H 94 131/60 148/69 H 10/08/17 09:11 100 10/08/17 08:00 98.1 F 110 H 17 10/08/17 06:54 100 16 10/08/17 06:52 100 16 10/08/17 03:34 99.1 F 78 20 10/08/17 02:20 87 16 BP BP Pulse Ox 10/08/17 11:45 92/50 L 93 L 10/08/17 10:57 99 10/08/17 10:15 10/08/17 09:11 10/08/17 08:00 113/61 90 L 10/08/17 06:54 97 10/08/17 06:52 97 10/08/17 03:34 112/59 L 97 10/08/17 02:20 99 Weight Admit Weight 99.7 kg Weight 96.661 kg Most Recent Monitor Data Heart Rate from ECG 110 NIBP 125/80 NIBP BP-Mean 98 Respiration from ECG 19 SpO2 90 I&O: 10/07/17 10/08/17 10/09/17 06:59 06:59 06:59 Intake Total 2160 1680 Output Total 690 2000 Balance 1470 -320 Result Diagrams: 10/03/17 05:11 10/03/17 05:11 <Nhung Guerrero - Last Filed: 10/08/17 13:08> Phys Exam - Physical Examination Constitutional: NAD HEENT: PERRLA, moist MMs, sclera anicteric Neck: no nodes, no JVD Respiratory: no wheezing, no rales diffuse rhonchi Cardiovascular: no significant murmur, no rub, irregular normal S1/S2, irregular rhythm Gastrointestinal: soft, non-tender, no distention, positive bowel sounds Musculoskeletal: no edema, pulses present Neurological: non-focal, moves all 4 limbs Psychiatric: normal affect <Galo Carrion - Last Filed: 10/08/17 08:45> Dx/Plan (1) Acute on chronic respiratory failure with hypoxia and hypercapnia Code(s): J96.21 - ACUTE AND CHRONIC RESPIRATORY FAILURE WITH HYPOXIA; J96.22 - ACUTE AND CHRONIC RESPIRATORY FAILURE WITH HYPERCAPNIA Status: Chronic (2) Pulmonary hypertension associated with sarcoidosis Code(s): I27.29 - OTHER SECONDARY PULMONARY HYPERTENSION; D86.9 - SARCOIDOSIS, UNSPECIFIED Status: Chronic (3) Chronic respiratory failure with hypoxia Code(s): J96.11 - CHRONIC RESPIRATORY FAILURE WITH HYPOXIA Status: Acute (4) Right-sided heart failure Status: Acute (5) Cor pulmonale, chronic Code(s): I27.81 - COR PULMONALE (CHRONIC) Status: Chronic (6) Diabetes Code(s): E11.9 - TYPE 2 DIABETES MELLITUS WITHOUT COMPLICATIONS Status: Chronic QualifierTitle: Diabetes mellitus type: type 2 Diabetes mellitus complication status: without complication 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 Dilt dose increased per cardiology from respiratory standpoint pt is stable for dc continue current meds for HFpEF continue ISS and metformin for DM <Galo Carrion - Last Filed: 10/08/17 08:45> Attending Addendum - Attending Addendum I personally evaluated the patient and discussed the management with Dr. Carrion I agree with the History, Examination, Assessment and Plan documented above with any addition or exceptions noted below- Patient feels that her breathing is back to baseline. Afebrile VSS. A/P: 1) Acute on chronic resp failure secondary to CAP and sarcoidosis- resolved; back to baseline. 2) MICHEL- resolved, 3) MAT vs SVT- awaiting EP recommendations; possible discharge later today. <Nhung Guerrero - Last Filed: 10/08/17 13:08>
[2017-10-08] MEDS ORDERED: Digoxin 0.125 MG TAB PO SCH (09:00)
[2017-10-08] MEDS: Furosemide 20 MG TAB PO SCH (09:11)
[2017-10-08] MEDS: metFORMIN 500 MG TAB PO SCH (09:11)
[2017-10-08] MEDS: Valsartan 80 MG TAB PO SCH (09:11)
[2017-10-08] MEDS: predniSONE 20 MG TAB PO SCH (09:11)
[2017-10-08] MEDS: OPSUMIT 10 MG TABLET PO SCH (09:12)
[2017-10-08] MEDS: Spironolactone 100 MG TAB PO SCH (09:12)
[2017-10-08] MEDS: ADCIRCA 20 MG PO SCH (09:12)
--- NOTE | 2017-10-08 09:45 | PRG ---
DATE OF SERVICE: 10/08/2017 HISTORY: This in the morning she is better. No pain or shortness of breath. PHYSICAL EXAMINATION: VITAL SIGNS: Sats 97% on 3 liters, blood pressure 112/59, temperature 99. CHEST: Chest revealed decreased breath sounds, no wheezing. CARDIAC: Normal S1-S2. No gallops. ABDOMEN: Soft. No masses. IMPRESSION: 1. Respiratory failure. 2. Sarcoidosis. 3. Hypertension. 4. Cardiac arrhythmia. PLAN: She is going to be discharged home to follow up by Dr. Beltran in about 2-3 weeks.
[2017-10-08 12:16] VITALS: BP 92/50; TEMP 98.6
--- NOTE | 2017-10-08 14:09 | PDOC.CTH ---
Cardiology Progress Note - Subjective The pt seen and examined. No overnight events. No cardiac complaints. Her HR has been 90-100s today without palpitation or fluttering in her chest. D/c home with Home O2 - Objective Vital Signs Temp Pulse Pulse Pulse Resp BP BP 10/08/17 11:45 98.6 F 90 17 10/08/17 10:57 87 16 10/08/17 10:15 111 H 94 131/60 148/69 H 10/08/17 09:11 100 10/08/17 08:00 98.1 F 110 H 17 10/08/17 06:54 100 16 10/08/17 06:52 100 16 10/08/17 03:34 99.1 F 78 20 10/08/17 02:20 87 16 BP BP Pulse Ox 10/08/17 11:45 92/50 L 93 L 10/08/17 10:57 99 10/08/17 10:15 10/08/17 09:11 10/08/17 08:00 113/61 90 L 10/08/17 06:54 97 10/08/17 06:52 97 10/08/17 03:34 112/59 L 97 10/08/17 02:20 99 Admit Weight 219 lb 12.814 oz Weight 213 lb 1.6 oz 10/07/17 10/08/17 10/09/17 06:59 06:59 06:59 Intake Total 2160 1680 Output Total 690 2000 Balance 1470 -320 - Physical Examination General/Neuro: alert & oriented x3 Neck: no JVD present Lungs: other: (ronchi to Lt lobe) Abdomen: soft Extremities: other: (No edemas) - Telemetry Telemetry Rhythm: SR 90-100s - Labs Result Diagrams: 10/03/17 05:11 10/03/17 05:11 Troponin/CKMB CK-MB (CK-2) 3.7 ng/mL (0-6.6) 09/25/17 14:51 Troponin I 0.060 ng/mL (< 0.028) H 09/25/17 21:16 - Assessment/Plan 1. S/p SVT - HR today has been 90-100s wiht diltiazem and dig. Hx of 2 episodes of SVT with HR up to 200 on 10/03/17 and 10/04/17. The pt will f/u with EP clinic as outpatient; 2. Acute on chronic respiratory failure 2nday to Sarcoidosis, Pulm. HTN and PNA - on 2.5LNC with antibiotics; Keep O2 sat > 88% per optometrist president/practice owner; she will go home with home O2; managed by optometrist president/practice owner 3. Community Acquired PNA - stable with 2.5LNC and steroid; managed by optometrist president/practice owner 4. HTN - stable with current medication; cont. monitor 5. DM type 2 - not on ACHS BG check; she is on Metformin at home; MAR Reviewed * From cardiac standpont, The pt is stable to d/c home; she will f/u with Dr Rodgers' office after she sees EP clinic. Review of Systems - Review of Systems Constitutional: reports: no symptoms reported EENTM: reports: no symptoms reported Respiratory: reports: see HPI Cardiac (ROS): reports: no symptoms reported ABD/GI: reports: no symptoms reported : reports: no symptoms reported Musculoskeletal: reports: no symptoms reported Skin: reports: no symptoms reported
--- NOTE | 2017-10-08 16:00 | PRG ---
DATE OF SERVICE: 10/05/2017 SUBJECTIVE: This morning, she is awake, alert and responsive. She is less short of breath, less whe ezing. OBJECTIVE: VITAL SIGNS: Blood pressure 99/65, sats are 92% on 2 liters, pulse 80-90 and temperature 98. CHEST: Minimal wheezing. CARDIAC: Normal S1 and S2. ABDOMEN: Soft. No masses. LABORATORY DATA: Glucose is normal. IMPRESSION: 1. Respiratory failure, status post bronchitis. 2. Baseline sarcoidosis. 3. Severe pulmonary hypertension. PLAN: I suggest to increase the Diovan to 160 a day. She is getting Lasix 25 and hydrochlorothiazide 6.25. I see no reason to leave on both diuretics. She is already getting spironolactone. Hopefully, home in the next several days once Cardiology okays the discharge. She can be sent home o n tapering dose of steroids for 2 weeks and antibiotics for 5 days.
--- NOTE | 2017-10-08 17:01 | CON ---
DATE OF CONSULTATION: 10/08/2017 ELECTROPHYSIOLOGY CONSULTATION REPORT REFERRING PHYSICIAN: Dr. Rodgers. HISTORY OF PRESENT ILLNESS: I am seeing Ms. 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 Her problems are: 1. Recurrent runs of nonsustained supraventricular tachycardia likely atrial tachyarrhythmia in the setting of recovering upper respiratory tract infection. 2. History of pulmonary sarcoidosis with pulmonary hypertension. A. Preserved left ventricular ejection fraction on 2D echo at 50%-55%, mild MR, mild TR. 3. History of diastolic dysfunction. 4. History of chronic kidney disease. 5. History of morbid obesity. ALLERGIES: TOMATO. MEDICATIONS: At home include losartan/HCTZ 160/4.5 mg half tablet a day, metformin, furosemide 20 a day, budesonide, formoterol, Symbicort 2 puffs b.i.d., spironolactone 25 twice a day, Adcirca 20 mg a day, digoxin 0.125 mg daily, Opsumit 10 mg a day, prednisone 10 mg p.o. q.a.m., albuterol, amoxicill in/clavulanic acid, Augmentin. SUBJECTIVE: Ms. Mc was admitted on the with acute respiratory failure. She had progressiv e shortness of breath, difficulty breathing, not respond to nebulizer and BiPAP eventually need intub ation on admission. She was treated with IV antibiotic and with pulmonary care improved, but during her stay, she was noted to have frequent supraventricular arrhythmias which were nonsustained that pe rsisted into her recovery. Symptoms are mild. She had no dizziness or loss of consciousness, no str bonnie-like symptoms, no neurological deficits, no fever, chills, cough at this time. She has no PND or orthopnea. She had occasional rounds up to 30 seconds to 2 minutes. She required diltiazem IV for suppression. Currently, being treated with digoxin and diltiazem combination with still occasional n onsustained runs. No bleeding issues, no stroke-like symptoms and the rest of 12 point review of systems are currently unremarkable. PAST MEDICAL HISTORY: As above. Patient had prior history of heart doctor visits in [place], but e cannot recall any significant heart disease. SOCIAL HISTORY: Patient denies smoking, ETOH or drug use. FAMILY HISTORY: Noncontributory. Mother and sister has also sarcoidosis. PAST SURGICAL HISTORY: Significant for , bilateral tubal ligation, D&C in the past. OBJECTIVE DATA: VITAL SIGNS: Blood pressure is currently 113/61, heart rate 110, respirations 17, temperature 98.1 d egrees Fahrenheit. GENERAL: She is alert and oriented, obese woman in no apparent distress. NECK: Supple. Jugular veins are not distended. CHEST: Coarse without crackles. CARDIOVASCULAR: Heart sounds are regular to rate and rhythm. No murmur or gallop. ABDOMEN: Benign, bowel sounds positive. EXTREMITIES: Lower extremities without edema, clubbing or cyanosis. Pulses are adequate. NEUROLOGIC: Patient is nonfocal. MUSCULOSKELETAL: Without joint swelling or deformities. SKIN: Without rash. DATABASE: The EKGs reviewed reveals sinus rhythm. No significant ST-T changes. The telemetry strip s do reveal runs of atrial tachycardia which were nonsustained. LABORATORY DATA: White blood cell count 17.2, hemoglobin 11.8, platelet count is 455. Sodium 141 on the 10th, potassium 4, BUN is 14, creatinine 0.7. X-RAY FINDINGS: The chest x-ray from 09/29/2017 shows stable chest. ASSESSMENT AND PLAN: Ms. Mc is a pleasant 51-year-old woman with prior history of pulmonary sa rcoidosis, near normal left ventricular systolic function and diastolic heart failure. She is admitt ed after respiratory failure with requiring intubation. Her postoperative recovery was marked or com plicated by runs of supraventricular arrhythmias. The telemetry strips reveal likely atrial tachyarr hythmias, which is not surprising in fact of pulmonary hypertension, most likely the source is likely to be either right or left atrial focal arrhythmias. I discussed the treatment options. Right now, she seems to be getting better on the diltiazem and di goxin combination. This is reasonable, alternatively we could consider adding antiarrhythmic agents, Multaq would be an obvious choice, flecainide would be also a possibility, hence lack of history of structural heart disease, but has history of sarcoidosis, potential future, ventricular scarring bill ot be ruled out. For this reason, Multaq would be more optimal. I also discussed the option of ablation therapy, but at this point, she would like to give a try to m edications first, which is not unreasonable. I would like to see her back in the office as an outpat ient for followup.
--- NOTE | 2017-10-08 17:47 | EKG ---
Test Reason : Blood Pressure : / mmHG Vent. Rate : 106 BPM Atrial Rate : 106 BPM P-R Int : 000 ms QRS Dur : 090 ms QT Int : 390 ms P-R-T Axes : 000 160 121 degrees QTc Int : 518 ms Sinus arrhythmia with premature ventricular or aberrantly conducted complexes Right axis deviation Right ventricular hypertrophy Nonspecific ST and T wave abnormality , probably digitalis effect Abnormal ECG When compared with ECG of 25-SEP-2017 14:40, (Unconfirmed) Sinus arrhythmia has replaced Sinus rhythm QRS axis Shifted right T wave inversion more evident in Anterolateral leads Confirmed by JACKY MCADAMS, SJohn ([id number]) on 10/08/2017 5:46:46 PM Referred By: Confirmed By:DR. Ama RICO MD
== END 2017-10-08 15:56 | disposition home or self-care (01) | DRG 870 ==
LOC: ERS 14:22 → CCU 17:20 → 2NO 10-03 10:21
PROVIDERS: ADMIT Family Medicine; ATTEND Family Medicine
PROC: 5A1955Z Respiratory Ventilation, Greater than 96 Consecutive Hours (ICD-10-PCS; principal; 2017-09-25)
PROC: 0BH17EZ Insertion of Endotracheal Airway into Trachea, Via Natural or Artificial Opening (ICD-10-PCS; 2017-09-25)
PROC: 02HV33Z Insertion of Infusion Device into Superior Vena Cava, Percutaneous Approach (ICD-10-PCS; 2017-09-25)
DX: A41.9 Sepsis, unspecified organism (principal); J96.21 Acute and chronic respiratory failure with hypoxia; J18.9 Pneumonia, unspecified organism; N17.9 Acute kidney failure, unspecified; E11.22 Type 2 diabetes mellitus with diabetic chronic kidney disease; E66.01 Morbid (severe) obesity due to excess calories; I47.1 Supraventricular tachycardia; J96.22 Acute and chronic respiratory failure with hypercapnia; I13.0 Hypertensive heart and chronic kidney disease with heart failure and stage 1 through stage 4 chronic kidney disease, or unspecified chronic kidney disease; I24.8 Other forms of acute ischemic heart disease; I50.32 Chronic diastolic (congestive) heart failure; I42.9 Cardiomyopathy, unspecified; I48.92 Unspecified atrial flutter; K56.7 Ileus, unspecified; I50.811 Acute right heart failure; I08.1 Rheumatic disorders of both mitral and tricuspid valves; D86.9 Sarcoidosis, unspecified; Z98.51 Tubal ligation status; N18.2 Chronic kidney disease, stage 2 (mild); F41.9 Anxiety disorder, unspecified; F32.9 Major depressive disorder, single episode, unspecified; I49.9 Cardiac arrhythmia, unspecified; J45.909 Unspecified asthma, uncomplicated; J84.10 Pulmonary fibrosis, unspecified; D86.89 Sarcoidosis of other sites; D86.85 Sarcoid myocarditis; D63.1 Anemia in chronic kidney disease; I27.29 Other secondary pulmonary hypertension; I27.81 Cor pulmonale (chronic); I48.91 Unspecified atrial fibrillation; E87.6 Hypokalemia; Z68.35 Body mass index [BMI] 35.0-35.9, adult
CPT/HCPCS: 31500; 36415; 36416; 36556; 51702; 71010; 71045; 74018; 74177; 80048; 80053; 80162; 80202; 81003; 81015; 82553; 82805; 83605; 83690; 83735; 83880; 84100; 84443; 84484; 85025; 85610; 85730; 87040; 87086; 87324; 87449; 87899; 93005; 93010; 93306; 94002; 94003; 94640; 94644; 94660; 94760; 96360; 96365; 96366; 96368; 96375; 99292; A4216; G8978-GP-CI; G8978-GP-CN; G8979-GP-CI; G8979-GP-CK; G8987-GO-CM; G8988-GO-CK; J0456; J0692; J0696; J1160; J1644; J1650; J1956; J2060; J2405; J2543; J2704; J2765; J2920; J2930; J3010; J3370; J3475; J3480; J7050; J7506; J7611; J7620; S0028

== ENCOUNTER 2018-01-25 13:30 | Outpatient (CLI) | payer MEDICARE, MEDICAID ==
--- NOTE | 2018-01-25 14:08 | RAD ---
PA AND LATERAL CHEST: Date: 01/25/18 INDICATION: History of dyspnea. COMPARISON: Prior exam dated 10/04/17. FINDINGS: The coarse lung markings with paramediastinal opacity are largely stable. The extent of the pleural t hickening overlying the right upper lobe is stable. Pleural thickening involving the left lung apex i s stable. Areas of bronchiectasis involving the right parahilar region and left lung apex are similar . Cardiomegaly is stable. No pleural effusion is evident. Osseous structures are unchanged. IMPRESSION: 1. Stable chronic lung changes. 2. Stable cardiomegaly. POS: [facility]
== END 2018-01-25 13:31 | disposition home or self-care (01) ==
LOC: RAD 13:30
PROVIDERS: ATTEND Internal Medicine Pulmonary Disease
DX: R06.00 Dyspnea, unspecified (principal); I51.7 Cardiomegaly
CPT/HCPCS: 71046

== ENCOUNTER 2018-03-09 16:53 | Emergency (ER) | payer MEDICARE, MEDICAID ==
--- NOTE | 2018-03-09 18:35 | CT ---
CT OF CERVICAL SPINE 03/09/18 COMPARISON: None. HISTORY: Trauma, pain. TECHNIQUE: Serial axial CT imaging at 2.5 mm intervals from skull base through lung apices without contrast. Cor onal and sagittal reformatted imaging obtained. FINDINGS: Partially imaged lung apices demonstrate coarse increased linear interstitial density with areas of c ystic change and bronchiectatic change, as seen on prior chest radiograph. The C1 ring is intact. The craniocervical junction, atlantoaxial interspace, dense, C1-2 articulation, and occipital condyle s appear within normal limits. There is straightening of the normal cervical lordosis. No prevertebral soft tissue swelling. No ante rolisthesis or retrolisthesis. No acute fracture or evidence of dislocation is seen. Partially imaged enlarged calcified lymph nodes are noted in the superior mediastinum on the right, also seen on prior imaging. Findings are consist ent with the patient's history of sarcoidosis. IMPRESSION: No acute findings. POS: [facility]
== END 2018-03-09 18:25 | disposition home or self-care (01) ==
LOC: ERS 16:53
DX: S16.1XXA Strain of muscle, fascia and tendon at neck level, initial encounter (principal); R73.03 Prediabetes; I10 Essential (primary) hypertension; F41.9 Anxiety disorder, unspecified; F32.9 Major depressive disorder, single episode, unspecified; Z79.899 Other long term (current) drug therapy; Z79.84 Long term (current) use of oral hypoglycemic drugs; V89.2XXA Person injured in unspecified motor-vehicle accident, traffic, initial encounter
CPT/HCPCS: 72125

== ENCOUNTER 2019-06-13 13:49 | Outpatient (CLI) | payer MEDICARE, MEDICAID ==
--- NOTE | 2019-06-13 15:39 | MMO ---
Bilateral MAMMO Bilat Screen DDI+NADIA. CLINICAL HISTORY: Patient is 53 years old and is seen for screening. The patient has the following family history of breast cancer: sister, at age 48. The patient has no personal history of cancer. VIEWS: The views performed were: bilateral craniocaudal; bilateral craniocaudal with tomosynthesis; and bilateral mediolateral oblique with tomosynthesis. FILMS COMPARED: The present examination has been compared to prior imaging studies performed at [facility] on 02/06/2012, 03/19/2013, 04/28/2014 and 11/16/2015. This study has been interpreted with the assistance of computer-aided detection. MAMMOGRAM FINDINGS: There are scattered fibroglandular densities. There are new calcifications with grouped or clustered distribution seen in the posterior region of the left breast at 1 o'clock. In the right breast, there are no suspicious masses, calcifications or areas of architectural distortion. IMPRESSION: NEW CALCIFICATIONS IN THE LEFT BREAST REQUIRE ADDITIONAL EVALUATION. SPOT MAGNIFICATION VIEW(S) ARE RECOMMENDED. THE RESULTS OF THIS EXAM WERE SENT TO THE PATIENT. ACR BI-RADS Category 0 - Incomplete: Need additional imaging evaluation. [facility] will notify the patient of the need for additional imaging services. MAMMOGRAPHY NOTE: 1. A negative mammogram report should not delay a biopsy if a dominant of clinically suspicious mass is present. 2. Approximately 10% to 15% of breast cancers are not detected by mammography. 3. Adenosis and dense breasts may obscure an underlying neoplasm. Reported by: ALMA DELIA PIRES MD Electonically Signed: [id number]
== END 2019-06-13 13:50 | disposition home or self-care (01) ==
LOC: BICMAMMO 13:49
PROVIDERS: ATTEND Family Medicine
DX: Z12.31 Encounter for screening mammogram for malignant neoplasm of breast (principal); Z80.3 Family history of malignant neoplasm of breast; R92.1 Mammographic calcification found on diagnostic imaging of breast
CPT/HCPCS: 77063; 77067

== ENCOUNTER 2019-06-18 14:04 | Outpatient (CLI) | payer MEDICARE, MEDICAID ==
--- NOTE | 2019-06-18 14:51 | MMO ---
Left Breast MAMMO Unilat Diag DDI LT+NADIA. CLINICAL HISTORY: Patient is 53 years old and is seen for diagnostic exam. The patient has the following family history of breast cancer: sister, at age 48. The patient has no personal history of cancer. VIEWS: The views performed were: left craniocaudal spot compression magnification; left mediolateral spot compression magnification; and left mediolateral with tomosynthesis. FILMS COMPARED: The present examination has been compared to prior imaging studies performed at [facility] on 03/19/2013, 04/28/2014, 11/16/2015 and 06/13/2019. This study has been interpreted with the assistance of computer-aided detection. MAMMOGRAM FINDINGS: There are scattered fibroglandular densities. There are fine pleomorphic calcifications with grouped or clustered distribution seen in the posterior upper-outer region of the left breast. IMPRESSION: CALCIFICATIONS IN THE LEFT BREAST ARE SUSPICIOUS. A STEREOTACTIC BREAST BIOPSY IS RECOMMENDED. RESULTS AND RECOMMENDATIONS DISCUSSED WITH THE PATIENT AND QUESTIONS ANSWERED. THE RESULTS OF THIS EXAM WERE SENT TO THE PATIENT. ACR BI-RADS Category 4 - Suspicious abnormality - biopsy should be considered MAMMOGRAPHY NOTE: 1. A negative mammogram report should not delay a biopsy if a dominant of clinically suspicious mass is present. 2. Approximately 10% to 15% of breast cancers are not detected by mammography. 3. Adenosis and dense breasts may obscure an underlying neoplasm. Reported by: MIRA BECK MD Electonically Signed: [id number]
== END 2019-06-18 14:05 | disposition home or self-care (01) ==
LOC: BICMAMMO 14:04
PROVIDERS: ATTEND Family Medicine
DX: R92.1 Mammographic calcification found on diagnostic imaging of breast (principal); Z80.3 Family history of malignant neoplasm of breast
CPT/HCPCS: 77065; G0279

== ENCOUNTER 2019-07-02 07:09 | Day surgery (SDC) | payer MEDICARE, MEDICAID ==
--- NOTE | 2019-07-01 10:00 | HP ---
HISTORY OF PRESENT ILLNESS: Roya Mc is a 53-year-old female followed by Dr. Beltran for pulmonary hypertension, evaluated in [place] for a lung transplant, seen for abdominal pain. Ultrasound obtained revealing gallstones, normal bile duct caliber. This ultrasound was done in [facility] and the report is read from the patient's phone Jax. The patient has sarcoidosis. She is followed by Dr. Abhijeet Rodgers with negative cardiac evaluation. She is on home oxygen, night and day. She has been seen by her [facility] x ray technologist regarding her abdominal pain. She saw Dr. Beltran recently and I discussed with Dr. Beltran her care. Plan is for laparoscopic cholecystectomy with overnight observation. The patient is having pain and discomfort. She reports a negative stress test in 2017. She last saw Dr. Rodgers a year ago and I have talked to Dr. Rodgers. The patient is safe to proceed without further cardiac evaluation. Tobacco use none since 2006. Echocardiogram in [address] Rodgers last year. PAST SURGICAL HISTORY: 1. . 2. Diabetes mellitus. 3. Vitamin B deficiency. 4. Pulmonary hypertension. MEDICATIONS: 1. Metformin 500 twice daily. 2. Azithromycin 500 . 3. Symbicort 2 puffs b.i.d. 4. Prednisone . 5. Sildenafil 20 mg 3 times daily. 6. Macitentan 10 mg daily. 7. Valsartan/hydrochlorothiazide . 8. Furosemide . 9. Lasix daily. PHYSICAL EXAMINATION: VITAL SIGNS: 195 pounds, 5 feet 6 inches, 130/73, heart rate 108, 98.4 degrees. GENERAL: She is on oxygen. HEAD, EARS, EYES, NOSE AND THROAT: Unremarkable. LUNGS: Clear to auscultation. CARDIAC: Regular rate and rhythm without murmur or gallop. ABDOMEN: Soft and nontender. EXTREMITIES: Unremarkable. ASSESSMENT: 1. Symptomatic cholelithiasis. Plan laparoscopic cholecystectomy. I discussed with Dr. Beltran her sarcoidosis and oxygen needs. She will be hypoxic and she will be observed postoperatively. No further cardiac or pulmonary intervention needed preoperatively. 2. Sarcoidosis. 3. Diabetes mellitus. Job ID: [id number]
[2019-07-01 15:09] VITALS: BMI 32.3
[2019-07-02] MEDS ORDERED: Lidocaine 2% PF 5 ML VIAL ONE ×2 (08:22→08:23)
[2019-07-02] MEDS ORDERED: Levofloxacin 500 mg/D5W 100 ml Premix Bag ONE (08:22)
[2019-07-02] MEDS ORDERED: Bupivacaine/Epinephrine 0.25% 30 ML VIAL ONE (08:22)
[2019-07-02] MEDS ORDERED: Ketorolac Tromethamine 30 MG/ML VIAL ONE (08:22)
[2019-07-02] MEDS ORDERED: Bupivacaine HCl 0.5%/Epinephrine 1:200,000/PF 30 ml Vial ONE (08:22)
[2019-07-02 08:57] LABS: #Eosinphils 0.1 thou/uL (0.0-0.7); #Lymphocytes 1.2 thou/uL (1.20-3.40); #Monocytes 0.5 thou/uL (0.11-0.59); #Neutrophils 9.4 thou/uL (1.40-6.50); %Basophils 0.3 % (0.0-1.0); %Eosinophils 0.7 % (0.0-10.0); %Lymphocytes 10.3 % (21.0-51.0); %Monocytes 4.4 % (0.0-10.0); %Neutrophils 84.3 % (42.0-75.0); Hemoglobin 13.6 g/dL (12.0-16.0); Mean Corpuscular HGB CONC 30.3 g/dL (32.0-36.0); Mean Corpuscular Hemoglobin 26.9 pg (27.0-31.0); Mean Corpuscular Volume 88.7 fL (78.0-98.0); Mean Platelet Volume 8.6 fL (7.4-10.4); Platelet Count 289 thou/uL (130-400); RBC Distribution Width 17.9 % (11.5-14.5); Red Blood Cell (RBC) Count 5.06 mill/uL (4.20-5.40); White Blood Cell (WBC) Count 11.2 thou/uL (4.8-10.8)
[2019-07-02] MEDS ORDERED: Lidocaine 2% Jelly 5 ML TUBE ONE (08:57)
[2019-07-02] MEDS ORDERED: Fentanyl 100 MCG/2 ML VIAL ONE (08:57)
[2019-07-02] MEDS ORDERED: Ketamine 50 MG/ML (10ML VIAL) ONE (09:17)
[2019-07-02] MEDS ORDERED: Midazolam HCl 2 mg/2 ml Vial ONE (09:17)
[2019-07-02 09:19] LABS: ALT (SGPT) 9 U/L (8-55); AST (SGOT) 16 U/L (5-34); Alkaline Phosphatase 82 U/L (40-110); Anion Gap 11 mmol/L (10-20); BUN (Urea Nitrogen) 15 mg/dL (9.8-20.1); Bilirubin, Total 0.5 mg/dL (0.2-1.2); Calc. Creatinine Clearance 97 mL/min (70-130); Calcium 9.3 mg/dL (7.8-10.44); Carbon Dioxide 29 mmol/L (22-29); Chloride 100 mmol/L (98-107); Estimated GFR-MDRD 72; Globulin 3.3 g/dL (2.4-3.5); Glucose 128 mg/dL (70-105); Potassium 4.4 mmol/L (3.5-5.1); Protein, Total 7.3 g/dL (6.0-8.3); Sodium 136 mmol/L (136-145)
[2019-07-02] MEDS ORDERED: Propofol 500 MG/50 ML VIAL ONE (09:23)
--- NOTE | 2019-07-02 10:01 | MMO ---
SPECIMEN RADIOGRAPH: CLINICAL HISTORY: Status post excisional biopsy of left breast for calcifications. FINDINGS: Radiograph specimen reveals the distal aspect of a curved metallic wire and a cluster of calcificatio ns. IMPRESSION: Specimen radiograph as above. Telephone call to Dr. Ron in the Operating Room was performed at time of dictation. Transcribed Date/Time: 07/02/2019 10:33 AM
--- NOTE | 2019-07-02 10:07 | MMO ---
LEFT BREAST NEEDLE LOCALIZATION: CLINICAL HISTORY: Calcifications in the upper outer left breast, indeterminate. PROCEDURE: Informed consent was obtained and the patient was escorted to the procedural suite with the left myla st placed into compression. Standard sterile prepping and draping was performed and the skin was anesthetized with 1% buffered lidocaine. Subsequently a 5 cm Troy needle was advanced uneventfully t hrough the site of calcifications, confirmed with tangential imaging and secured to the left breast. The patient was transferred to surgery to undergo excisional biopsy. No procedural complicati ons. IMPRESSION: Technically successful mammographic guided left breast needle localization. Transcribed Date/Time: 07/02/2019 10:35 AM
--- NOTE | 2019-07-02 10:58 | OP ---
DATE OF PROCEDURE: 07/02/2019 PREOPERATIVE DIAGNOSES: Cholecystitis, cholelithiasis, abnormal suspicious microcalcifications upper outer quadrant left breast. POSTOPERATIVE DIAGNOSES: Cholecystitis, cholelithiasis, abnormal suspicious microcalcifications upper outer quadrant left breast. PROCEDURE PERFORMED: Mammographically needle localized excisional, wide local excision of microcalcifications, upper outer quadrant left breast. ANESTHESIA: TIVA, local 0.5% Marcaine with epinephrine 30 mL, 0.25% Marcaine with epinephrine 30 mL, 2% Xylocaine 10 mL total volume mixture used. INDICATION: Note, the patient initially was seen in my office for symptomatic gallstones. She had severe pulmonary hypertension from sarcoidosis. In the interim, she had a mammogram that revealed suspicious microcalcifications, upper outer quadrant, left breast. The patient could not lie prone for a stereotactic biopsy and mammo needle localization excision recommended after discussion with the radiologist. By the time the patient arrived in preoperative holding, she had not been symptomatic from her gallstones and her pulmonary transplant elevator constructor in [place] recommend that she not have a general anesthetic, if we could avoid it, even though local Pulmonary Medicine, Dr. Beltran stated that she would probably be okay. The patient had phobia for the ventilator and considering the risk, considering her severe pulmonary hypertension and sarcoidosis, decision was made to not do her cholecystectomy. DESCRIPTION OF PROCEDURE: The patient was taken to the operating room, where under intravenous sedation, her left breast was prepared with ChloraPrep and draped in routine fashion. Incision was made about the localizing wire in the upper outer quadrant left breast and carried down to skin and subcutaneous tissue at the area had been anesthetized with local anesthetic mixture. A wide excision of surrounding breast tissue, excised from around the localizing wire. Once the specimen was retrieved, it was marked for margins, submitted to mammography, where a specimen mammography assured retrieval of microcalcifications and the specimen submitted to Pathology. Good hemostasis was obtained with the cautery. Subcutaneous tissue was approximated with 3-0 Monocryl, skin with subdermal 4-0 Monocryl and biopsy cavity filled with local anesthetic. The patient tolerated the procedure well. Job ID: [id number]
--- NOTE | 2019-07-03 15:11 | MMO ---
SURGICAL SPECIMEN RADIOGRAPH: Date: 07/03/19 Specimen radiograph performed. Calcifications of concern are noted and have been marked. Findings con veyed to cytopathology technologist on 07/03/19 at 1410 hours. CODE CR. POS: OFF
--- NOTE | 2019-07-03 23:20 | EKG ---
Test Reason : PREOP Blood Pressure : / mmHG Vent. Rate : 093 BPM Atrial Rate : 093 BPM P-R Int : 144 ms QRS Dur : 082 ms QT Int : 338 ms P-R-T Axes : 054 138 019 degrees QTc Int : 420 ms Normal sinus rhythm Right atrial enlargement Right axis deviation Right ventricular hypertrophy Abnormal ECG When compared with ECG of 07-OCT-2017 18:51, Previous ECG has undetermined rhythm, needs review T wave inversion no longer evident in Lateral leads QT has shortened Confirmed by Baljit DAMON ([id number]) on 07/03/2019 11:20:03 PM Referred By: ARIAN Confirmed By:Baljit DAMON
== END 2019-07-02 11:00 | disposition home or self-care (01) ==
LOC: SDC 07:09
PROVIDERS: ATTEND Specialist
PROC: BH01ZZZ Plain Radiography of Left Breast (ICD-10-PCS; principal; 2019-07-02)
PROC: 0HBU0ZZ Excision of Left Breast, Open Approach (ICD-10-PCS; 2019-07-02)
PROC: 0HBU0ZX Excision of Left Breast, Open Approach, Diagnostic (ICD-10-PCS; 2019-07-02)
DX: D05.12 Intraductal carcinoma in situ of left breast (principal); K80.10 Calculus of gallbladder with chronic cholecystitis without obstruction; E11.9 Type 2 diabetes mellitus without complications; I27.29 Other secondary pulmonary hypertension; D86.9 Sarcoidosis, unspecified; Z79.84 Long term (current) use of oral hypoglycemic drugs; Z79.899 Other long term (current) drug therapy; Z91.018 Allergy to other foods
CPT/HCPCS: 19281; 76098; 80053; 85025; 88307; 93005; 93010; J0131; J0670; J1610; J1885; J1956; J2001; J2250; J2704; J3010; J7620

== ENCOUNTER 2020-07-05 12:44 | Outpatient (CLI) | payer MEDICARE, MEDICAID ==
--- NOTE | 2020-07-05 13:51 | MMO ---
Bilateral MAMMO Bilat Diag DDI+NADIA. CLINICAL HISTORY: Patient is 54 years old and is seen for diagnostic exam. The patient has the following family history of breast cancer: sister, at age 48. The patient has a history of Excisional biopsy procedure revealed invasive ductal left breast carcinoma in June,. The patient has a history of left Excisional Biopsy in June, - invasive ductal carcinoma. VIEWS: The views performed were: bilateral craniocaudal with tomosynthesis; bilateral mediolateral oblique with tomosynthesis; and bilateral mediolateral with tomosynthesis. FILMS COMPARED: The present examination has been compared to prior imaging studies performed at [facility] on 04/28/2014, 11/16/2015, 06/13/2019 and 06/18/2019. This study has been interpreted with the assistance of computer-aided detection. MAMMOGRAM FINDINGS: There are scattered fibroglandular densities. Post op distortion upper outer left breast. Skin thickening from XRT. Recommend 6 mth follow up left breast. In the right breast, there are no suspicious masses, calcifications or areas of architectural distortion. IMPRESSION: FINDING IN THE LEFT BREAST IS PROBABLY BENIGN. FOLLOW-UP IN 6 MONTHS IS RECOMMENDED. THE RESULTS OF THIS EXAM WERE SENT TO THE PATIENT. ACR BI-RADS Category 3 - Probably benign finding - short interval follow-up suggested. [facility] will notify the patient of the need for additional imaging services. MAMMOGRAPHY NOTE: 1. A negative mammogram report should not delay a biopsy if a dominant of clinically suspicious mass is present. 2. Approximately 10% to 15% of breast cancers are not detected by mammography. 3. Adenosis and dense breasts may obscure an underlying neoplasm. Reported by: JERMAN REECE MD Electonically Signed: [id number]
== END 2020-07-05 12:45 | disposition home or self-care (01) ==
LOC: BICMAMMO 12:44
PROVIDERS: ATTEND Internal Medicine
DX: Z08 Encounter for follow-up examination after completed treatment for malignant neoplasm (principal); Z85.3 Personal history of malignant neoplasm of breast
CPT/HCPCS: 77066; G0279

== ENCOUNTER 2020-12-15 14:54 | Outpatient (CLI) | payer MEDICARE, MEDICAID | END 2020-12-15 14:55 | disposition home or self-care (01) | LOC: BICULT 14:54 | PROVIDERS: ATTEND Student in an Organized Health Care Education/Training Program | DX: R60.9 Edema, unspecified (principal); I82.812 Embolism and thrombosis of superficial veins of left lower extremity ==

== ENCOUNTER 2020-12-21 15:51 | Inpatient (IN) | payer MEDICARE, MEDICAID ==
[2020-12-21] MEDS ORDERED: cefTRIAXone\\ROCEPHIN 1 GM VIAL ONE (16:20)
[2020-12-21] MEDS ORDERED: Dexamethasone 10 MG/ML VIAL ONE (16:20)
[2020-12-21] MEDS ORDERED: Sodium Chloride 0.9% 0 ML ONE (16:20)
[2020-12-21 16:50] LABS: #Lymphocytes 0.6 thou/uL (1.20-3.40); #Monocytes 0.4 thou/uL (0.11-0.59); #Neutrophils 6.1 thou/uL (1.40-6.50); %Basophils 0.1 % (0.0-1.0); %Eosinophils 0.4 % (0.0-10.0); %Lymphocytes 8.2 % (21.0-51.0); %Monocytes 6.1 % (0.0-10.0); %Neutrophils 85.2 % (42.0-75.0); Anisocytosis SLIGHT = 6-15 cells (100X) (0-5/hpf); Hemoglobin 14.6 g/dL (12.0-16.0); Hypochromia SLIGHT = 6-15 cells (100X) (0-5/hpf); MDiff Complete? YES; Mean Corpuscular HGB CONC 27.2 g/dL (32.0-36.0); Mean Corpuscular Hemoglobin 21.6 pg (27.0-31.0); Mean Corpuscular Volume 79.5 fL (78.0-98.0); Mean Platelet Volume 5.8 fL (7.4-10.4); Platelet Count 315 thou/uL (130-400); Platelet Morphology Comment Appears Adequate; RBC Distribution Width 25.3 % (11.5-14.5); Red Blood Cell (RBC) Count 6.77 mill/uL (4.20-5.40); White Blood Cell (WBC) Count 7.2 thou/uL (4.8-10.8)
[2020-12-21 16:55] LABS: Prothrombin Time 28.5 sec (12.0-14.7)
[2020-12-21 16:56] LABS: INR-International Normal Ratio 2.6; PTT 40.3 sec (22.9-36.1)
[2020-12-21 17:03] LABS: Analyzer IN Cardio ER; Base Excess 3.1 mEq/L (-2.0 to +3.0); Calcium, Ionized (venous) 1.15 mmol/L (1.16-1.32); Chloride (VBG) 101 mmol/L (98-106); Hemoglobin (Hb) 14.7 g/dL (11.7-16.0); Potassium (VBG) 4.99 mmol/L (3.70-5.30); Sodium 141.5 mmol/L (133-146); pH (venous) 7.29 (7.32-7.43)
[2020-12-21 17:05] LABS: Actual Bicarbonate (HCO3v) 32 mEq/L (22-28)
[2020-12-21] MEDS ORDERED: Azithromycin 500 MG VIAL ONE (17:07)
[2020-12-21] MEDS ORDERED: Sodium Chloride 0.9% 100 ML ONE (17:07)
[2020-12-21 17:09] LABS: CKMB 2.2 ng/mL (0-6.6)
[2020-12-21 17:21] LABS: ALT (SGPT) 11 U/L (8-55); AST (SGOT) 18 U/L (5-34); Albumin 4.1 g/dL (3.5-5.0); Alkaline Phosphatase 135 U/L (40-110); Anion Gap 16 mmol/L (10-20); BUN (Urea Nitrogen) 19 mg/dL (9.8-20.1); Bilirubin, Total 1.6 mg/dL (0.2-1.2); Calc. Creatinine Clearance 0 mL/min (70-130); Calcium 8.8 mg/dL (7.8-10.44); Carbon Dioxide 30 mmol/L (22-29); Chloride 101 mmol/L (98-107); Globulin 3.5 g/dL (2.4-3.5); Glucose 146 mg/dL (70-105); Potassium 5.2 mmol/L (3.5-5.1); Protein, Total 7.6 g/dL (6.0-8.3); Sodium 142 mmol/L (136-145)
[2020-12-21 17:29] LABS: Actual Bicarbonate (HCO3a) 28.5 mEq/L (22-28); Analyzer IN Cardio ER; Base Excess (BEa) 1.9 mEq/L (-2.0 to +3.0); CO2 Tension 52.2 mmHg (35.0-45.0); Calcium, Ionized (arterial) 1.19 mmol/L (1.12-1.30); Carboxyhemoglobin (COHb) 1.8 gm% (0.0-3.0); Hemoglobin (Hb) 14.7 g/dL (12.0-16.0); Potassium - ABG Lab 5.09 mmol/L (3.70-5.30); pH, Arterial 7.36 (7.35-7.45)
[2020-12-21 17:30] LABS: O2 Tension (PaO2), arterial 43.8 mmHg (80.0-100.0); Puncture Site RRA
[2020-12-21] MEDS ORDERED: Dextrose 5% in Water 1,000 ML IV PRN (19:46)
[2020-12-21] MEDS ORDERED: Ondansetron ODT 4 MG TAB PO PRN (19:46)
[2020-12-21] MEDS ORDERED: Dextrose 50% Abboject 50 ML SYRINGE SLOW IVP PRN (19:46)
[2020-12-21 21:18] LABS: SARS-CoV-2 NAA Rapid Test Not Detected (NotDetected)
[2020-12-21 21:30] LABS: Troponin I 0.059 ng/mL (< 0.028)
[2020-12-22] MEDS ORDERED: Benzonatate 100 MG CAP PO PRN (01:26)
[2020-12-22] MEDS ORDERED: Spironolactone 25 MG TAB PO SCH (01:45)
[2020-12-22 05:05] LABS: ALT (SGPT) 7 U/L (8-55); AST (SGOT) 18 U/L (5-34); Albumin 3.4 g/dL (3.5-5.0); Alkaline Phosphatase 103 U/L (40-110); Anion Gap 15 mmol/L (10-20); BUN (Urea Nitrogen) 23 mg/dL (9.8-20.1); Bilirubin, Total 0.9 mg/dL (0.2-1.2); Calc. Creatinine Clearance 71 mL/min (70-130); Calcium 8.6 mg/dL (7.8-10.44); Carbon Dioxide 27 mmol/L (22-29); Chloride 102 mmol/L (98-107); Glucose 214 mg/dL (70-105); Potassium 5.5 mmol/L (3.5-5.1); Protein, Total 6.4 g/dL (6.0-8.3); Sodium 138 mmol/L (136-145)
[2020-12-22 05:39] LABS: #Lymphocytes 0.6 thou/uL (1.20-3.40); #Monocytes 0.1 thou/uL (0.11-0.59); #Neutrophils 4.5 thou/uL (1.40-6.50); %Basophils 0.4 % (0.0-1.0); %Eosinophils 0.1 % (0.0-10.0); %Lymphocytes 11.1 % (21.0-51.0); %Monocytes 2.5 % (0.0-10.0); %Neutrophils 85.9 % (42.0-75.0); Anisocytosis MODERATE=16-30 cells (100X) (0-5/hpf); Elliptocytes SLIGHT = 2-5 cells (100X) (0-1/hpf); Hemoglobin 13.7 g/dL (12.0-16.0); MDiff Complete? YES; Mean Corpuscular HGB CONC 27.1 g/dL (32.0-36.0); Mean Corpuscular Hemoglobin 21.1 pg (27.0-31.0); Mean Corpuscular Volume 78.1 fL (78.0-98.0); Mean Platelet Volume 6.8 fL (7.4-10.4); Ovalocytes SLIGHT = 2-5 cells (100X) (0-1/hpf); Platelet Count 275 thou/uL (130-400); Polychromasia SLIGHT = 2-3 cells (100X) (0-2/hpf); RBC Distribution Width 24.9 % (11.5-14.5); Red Blood Cell (RBC) Count 6.46 mill/uL (4.20-5.40); White Blood Cell (WBC) Count 5.2 thou/uL (4.8-10.8)
[2020-12-22] MEDS ORDERED: metFORMIN 500 MG TAB PO SCH (08:00)
[2020-12-22] MEDS: Mometasone 200 MCG/Formoterol 5 MCG 120 PUFF INHALER INH SCH ×2 (08:19→19:34)
[2020-12-22] MEDS ORDERED: Empagliflozin 10 MG TAB PO SCH (09:00)
[2020-12-22] MEDS ORDERED: Dexamethasone 10 MG/ML VIAL SLOW IVP SCH (09:00)
[2020-12-22] MEDS ORDERED: Furosemide 20 MG TAB PO SCH (09:00)
[2020-12-22] MEDS ORDERED: Spironolactone 100 MG TAB PO SCH (09:00)
[2020-12-22] MEDS: Letrozole 2.5 MG TAB PO SCH (09:00)
[2020-12-22] MEDS: Gabapentin 300 MG CAP PO SCH ×3 (09:00→21:33)
[2020-12-22] MEDS: Atorvastatin Calcium 40 MG TAB PO SCH (09:01)
[2020-12-22] MEDS: metFORMIN 500 MG TAB PO SCH (09:01)
[2020-12-22] MEDS: Digoxin 0.125 MG TAB PO SCH (09:01)
[2020-12-22] MEDS: Rivaroxaban 10 MG TAB PO SCH (09:01)
[2020-12-22] MEDS: Empagliflozin 10 MG TAB PO SCH (09:01)
[2020-12-22 10:39] LABS: Anion Gap 15 mmol/L (10-20); BUN (Urea Nitrogen) 22 mg/dL (9.8-20.1); Calc. Creatinine Clearance 70 mL/min (70-130); Calcium 9.1 mg/dL (7.8-10.44); Carbon Dioxide 27 mmol/L (22-29); Chloride 100 mmol/L (98-107); Glucose 139 mg/dL (70-105); Potassium 5.1 mmol/L (3.5-5.1); Sodium 137 mmol/L (136-145)
[2020-12-22] MEDS: methylPREDNISolone Sod Succ 40 MG VIAL IVP SCH ×3 (11:26→23:50)
[2020-12-22] MEDS ORDERED: cefTRIAXone\\ROCEPHIN 1 GM in Sodium Chloride 0.9% 100 ML IVPB SCH (16:00)
[2020-12-22] MEDS ORDERED: Azithromycin 250 MG TAB PO SCH (16:00)
[2020-12-22] MEDS: HumaLOG 300 UNITS/3 ML VIAL SC PRN (17:20)
[2020-12-23 04:49] LABS: Anion Gap 12 mmol/L (10-20); BUN (Urea Nitrogen) 27 mg/dL (9.8-20.1); Calc. Creatinine Clearance 71 mL/min (70-130); Carbon Dioxide 29 mmol/L (22-29); Chloride 100 mmol/L (98-107); Potassium 5.4 mmol/L (3.5-5.1); Sodium 136 mmol/L (136-145)
[2020-12-23 04:50] LABS: ALT (SGPT) 8 U/L (8-55); AST (SGOT) 18 U/L (5-34); Albumin 3.4 g/dL (3.5-5.0); Alkaline Phosphatase 102 U/L (40-110); Bilirubin, Total 1.1 mg/dL (0.2-1.2); Calcium 9.2 mg/dL (7.8-10.44); Globulin 3.3 g/dL (2.4-3.5); Glucose 130 mg/dL (70-105); Protein, Total 6.7 g/dL (6.0-8.3)
[2020-12-23 05:20] LABS: #Lymphocytes 0.6 thou/uL (1.20-3.40); #Monocytes 0.1 thou/uL (0.11-0.59); #Neutrophils 4.8 thou/uL (1.40-6.50); %Basophils 0.2 % (0.0-1.0); %Lymphocytes 10.5 % (21.0-51.0); %Monocytes 1.9 % (0.0-10.0); %Neutrophils 87.4 % (42.0-75.0); Anisocytosis MODERATE=16-30 cells (100X) (0-5/hpf); Elliptocytes SLIGHT = 2-5 cells (100X) (0-1/hpf); Hypochromia SLIGHT = 6-15 cells (100X) (0-5/hpf); MDiff Complete? YES; Mean Corpuscular HGB CONC 27.1 g/dL (32.0-36.0); Mean Corpuscular Hemoglobin 21.5 pg (27.0-31.0); Mean Corpuscular Volume 79.3 fL (78.0-98.0); Mean Platelet Volume 5.6 fL (7.4-10.4); Platelet Count 300 thou/uL (130-400); Red Blood Cell (RBC) Count 6.53 mill/uL (4.20-5.40); White Blood Cell (WBC) Count 5.5 thou/uL (4.8-10.8)
[2020-12-23] MEDS: methylPREDNISolone Sod Succ 40 MG VIAL IVP SCH ×4 (05:55→23:56)
[2020-12-23] MEDS: HumaLOG 300 UNITS/3 ML VIAL SC PRN ×2 (06:03→17:45)
[2020-12-23] MEDS: Mometasone 200 MCG/Formoterol 5 MCG 120 PUFF INHALER INH SCH ×2 (07:21→19:26)
[2020-12-23] MEDS ORDERED: Lactated Ringer's 1,000 ML IV SCH (08:45)
[2020-12-23] MEDS: Rivaroxaban 10 MG TAB PO SCH (09:41)
[2020-12-23] MEDS: Digoxin 0.125 MG TAB PO SCH (09:41)
[2020-12-23] MEDS: Letrozole 2.5 MG TAB PO SCH (09:41)
[2020-12-23] MEDS: Atorvastatin Calcium 40 MG TAB PO SCH (09:41)
[2020-12-23] MEDS: Gabapentin 300 MG CAP PO SCH ×3 (09:42→21:09)
[2020-12-23] MEDS ORDERED: Melatonin 3 MG TAB PO PRN (13:53)
[2020-12-24 04:52] LABS: #Lymphocytes 0.5 thou/uL (1.20-3.40); #Monocytes 0.1 thou/uL (0.11-0.59); #Neutrophils 8.9 thou/uL (1.40-6.50); %Lymphocytes 5.6 % (21.0-51.0); %Monocytes 1.3 % (0.0-10.0); %Neutrophils 93.1 % (42.0-75.0); Hemoglobin 13.8 g/dL (12.0-16.0); Mean Corpuscular HGB CONC 27.9 g/dL (32.0-36.0); Mean Platelet Volume 5.9 fL (7.4-10.4); Platelet Count 298 thou/uL (130-400); RBC Distribution Width 24.2 % (11.5-14.5); Red Blood Cell (RBC) Count 6.28 mill/uL (4.20-5.40); White Blood Cell (WBC) Count 9.5 thou/uL (4.8-10.8)
[2020-12-24 05:13] LABS: ALT (SGPT) 10 U/L (8-55); AST (SGOT) 12 U/L (5-34); Albumin 3.3 g/dL (3.5-5.0); Alkaline Phosphatase 91 U/L (40-110); Anion Gap 13 mmol/L (10-20); BUN (Urea Nitrogen) 30 mg/dL (9.8-20.1); Calc. Creatinine Clearance 82 mL/min (70-130); Carbon Dioxide 28 mmol/L (22-29); Chloride 101 mmol/L (98-107); Globulin 2.9 g/dL (2.4-3.5); Glucose 150 mg/dL (70-105); Potassium 4.9 mmol/L (3.5-5.1); Protein, Total 6.2 g/dL (6.0-8.3); Sodium 137 mmol/L (136-145)
[2020-12-24] MEDS: methylPREDNISolone Sod Succ 40 MG VIAL IVP SCH ×4 (05:33→23:11)
[2020-12-24] MEDS: Mometasone 200 MCG/Formoterol 5 MCG 120 PUFF INHALER INH SCH ×2 (07:27→19:23)
[2020-12-24] MEDS: Digoxin 0.125 MG TAB PO SCH (08:30)
[2020-12-24] MEDS: Gabapentin 300 MG CAP PO SCH ×3 (08:30→21:04)
[2020-12-24] MEDS: Atorvastatin Calcium 40 MG TAB PO SCH (08:30)
[2020-12-24] MEDS: Letrozole 2.5 MG TAB PO SCH (08:30)
[2020-12-24] MEDS: Rivaroxaban 10 MG TAB PO SCH (08:31)
[2020-12-24 12:29] LABS: Actual Bicarbonate (HCO3a) 25.4 mEq/L (22-28); Analyzer IN Cardio OR; Base Excess (BEa) -2.4 mEq/L (-2.0 to +3.0); CO2 Tension 55.9 mmHg (35.0-45.0); Calcium, Ionized (arterial) 1.28 mmol/L (1.12-1.30); Carboxyhemoglobin (COHb) 1.3 gm% (0.0-3.0); Hemoglobin (Hb) 15.8 g/dL (12.0-16.0); O2 Tension (PaO2), arterial 42.7 mmHg (80.0-100.0); Potassium - ABG Lab 4.75 mmol/L (3.70-5.30); pH, Arterial 7.28 (7.35-7.45)
[2020-12-24 12:30] LABS: ALV-art Gradient 493.475 mmHg (0-20); Puncture Site RRA
[2020-12-24 12:46] LABS: Anion Gap 21 mmol/L (10-20); BUN (Urea Nitrogen) 31 mg/dL (9.8-20.1); Calc. Creatinine Clearance 66 mL/min (70-130); Calcium 9.8 mg/dL (7.8-10.44); Carbon Dioxide 22 mmol/L (22-29); Chloride 100 mmol/L (98-107); Glucose 218 mg/dL (70-105); Potassium 5.2 mmol/L (3.5-5.1); Sodium 138 mmol/L (136-145)
[2020-12-24 12:47] LABS: #Lymphocytes 1.7 thou/uL (1.20-3.40); #Monocytes 0.6 thou/uL (0.11-0.59); #Neutrophils 11.4 thou/uL (1.40-6.50); %Basophils 0.1 % (0.0-1.0); %Eosinophils 0.1 % (0.0-10.0); %Lymphocytes 12.4 % (21.0-51.0); %Monocytes 4.1 % (0.0-10.0); %Neutrophils 83.3 % (42.0-75.0); Anisocytosis SLIGHT = 6-15 cells (100X) (0-5/hpf); Hemoglobin 15.2 g/dL (12.0-16.0); MDiff Complete? YES; Mean Corpuscular HGB CONC 27.7 g/dL (32.0-36.0); Mean Corpuscular Hemoglobin 22.3 pg (27.0-31.0); Mean Corpuscular Volume 80.2 fL (78.0-98.0); Mean Platelet Volume 6.2 fL (7.4-10.4); Platelet Count 333 thou/uL (130-400); Platelet Morphology Comment Appears Adequate; RBC Distribution Width 25.4 % (11.5-14.5); Red Blood Cell (RBC) Count 6.82 mill/uL (4.20-5.40); White Blood Cell (WBC) Count 13.6 thou/uL (4.8-10.8)
[2020-12-24 13:11] LABS: PT - Undiluted 25.2 SEC (12.0-14.7); PTT - Undiluted 31.2 SEC (22.9-36.1)
[2020-12-24 13:12] LABS: PTT 1:1 Mix 28.1 SEC
[2020-12-24] MEDS: Acetaminophen 325 MG TAB PO PRN (13:40)
[2020-12-24 14:50] LABS: PT 1:1 37C-90 min. Incubation 17.9 SEC; PTT 1:1 37C/90 MIN Incubation 25.9 SEC
[2020-12-24] MEDS ORDERED: traMADol HCl 50 MG TAB PO SCH (17:30)
[2020-12-24] MEDS: metFORMIN 500 MG TAB PO SCH (18:01)
[2020-12-25] MEDS: Acetaminophen 325 MG TAB PO PRN ×2 (01:35→20:49)
[2020-12-25 04:42] LABS: #Lymphocytes 0.5 thou/uL (1.20-3.40); #Monocytes 0.2 thou/uL (0.11-0.59); #Neutrophils 11.7 thou/uL (1.40-6.50); %Eosinophils 0.1 % (0.0-10.0); %Lymphocytes 3.6 % (21.0-51.0); %Monocytes 1.9 % (0.0-10.0); %Neutrophils 94.5 % (42.0-75.0); Hemoglobin 14.6 g/dL (12.0-16.0); Mean Corpuscular HGB CONC 28.2 g/dL (32.0-36.0); Mean Corpuscular Hemoglobin 22.6 pg (27.0-31.0); Mean Corpuscular Volume 80.2 fL (78.0-98.0); Platelet Count 279 thou/uL (130-400); Red Blood Cell (RBC) Count 6.44 mill/uL (4.20-5.40); White Blood Cell (WBC) Count 12.4 thou/uL (4.8-10.8)
[2020-12-25 04:54] LABS: ALT (SGPT) 14 U/L (8-55); AST (SGOT) 20 U/L (5-34); Albumin 3.5 g/dL (3.5-5.0); Alkaline Phosphatase 93 U/L (40-110); Anion Gap 17 mmol/L (10-20); BUN (Urea Nitrogen) 36 mg/dL (9.8-20.1); Bilirubin, Total 0.9 mg/dL (0.2-1.2); Calc. Creatinine Clearance 76 mL/min (70-130); Calcium 9.5 mg/dL (7.8-10.44); Carbon Dioxide 24 mmol/L (22-29); Chloride 101 mmol/L (98-107); Glucose 181 mg/dL (70-105); Potassium 5.1 mmol/L (3.5-5.1); Protein, Total 6.5 g/dL (6.0-8.3); Sodium 137 mmol/L (136-145)
[2020-12-25] MEDS: methylPREDNISolone Sod Succ 40 MG VIAL IVP SCH ×3 (06:03→16:50)
[2020-12-25] MEDS: Digoxin 0.125 MG TAB PO SCH (07:48)
[2020-12-25] MEDS: Rivaroxaban 10 MG TAB PO SCH (07:49)
[2020-12-25] MEDS: metFORMIN 500 MG TAB PO SCH ×2 (07:49→16:50)
[2020-12-25] MEDS: Atorvastatin Calcium 40 MG TAB PO SCH (07:49)
[2020-12-25] MEDS: Gabapentin 300 MG CAP PO SCH ×3 (07:49→20:49)
[2020-12-25] MEDS: Mometasone 200 MCG/Formoterol 5 MCG 120 PUFF INHALER INH SCH ×2 (08:00→18:17)
[2020-12-25] MEDS: Empagliflozin 10 MG TAB PO SCH (08:44)
[2020-12-25] MEDS: Letrozole 2.5 MG TAB PO SCH (08:44)
[2020-12-25 09:03] LABS: Actual Bicarbonate (HCO3a) 28.2 mEq/L (22-28); Base Excess (BEa) 1.6 mEq/L (-2.0 to +3.0); CO2 Tension 52.1 mmHg (35.0-45.0); Calcium, Ionized (arterial) 1.28 mmol/L (1.12-1.30); Carboxyhemoglobin (COHb) 1.1 gm% (0.0-3.0); Hemoglobin (Hb) 15.7 g/dL (12.0-16.0); pH, Arterial 7.35 (7.35-7.45)
[2020-12-25 09:06] LABS: O2 Tension (PaO2), arterial 37.1 mmHg (80.0-100.0)
[2020-12-25 09:07] LABS: ALV-art Gradient 553.735 mmHg (0-20); Puncture Site RRA
[2020-12-25] MEDS: TREPROSTINIL DIOLAMINE 0.125 MG PO SCH ×6 (09:19→20:51)
[2020-12-25] MEDS ORDERED: Enoxaparin Sodium 80 MG/0.8 ML SYRINGE SC SCH (10:15)
[2020-12-25] MEDS: Enoxaparin Sodium 80 MG/0.8 ML SYRINGE SC SCH (20:50)
[2020-12-25] MEDS: HumaLOG 300 UNITS/3 ML VIAL SC PRN (20:52)
[2020-12-26] MEDS: methylPREDNISolone Sod Succ 40 MG VIAL IVP SCH ×3 (00:51→11:53)
[2020-12-26 03:52] LABS: #Lymphocytes 0.6 thou/uL (1.20-3.40); #Monocytes 0.6 thou/uL (0.11-0.59); #Neutrophils 12.4 thou/uL (1.40-6.50); %Lymphocytes 4.3 % (21.0-51.0); %Monocytes 4.1 % (0.0-10.0); %Neutrophils 91.6 % (42.0-75.0); Hemoglobin 14.8 g/dL (12.0-16.0); Mean Corpuscular HGB CONC 27.8 g/dL (32.0-36.0); Mean Corpuscular Hemoglobin 22.2 pg (27.0-31.0); Mean Corpuscular Volume 79.9 fL (78.0-98.0); Mean Platelet Volume 5.9 fL (7.4-10.4); Platelet Count 293 thou/uL (130-400); RBC Distribution Width 25.4 % (11.5-14.5); Red Blood Cell (RBC) Count 6.66 mill/uL (4.20-5.40); White Blood Cell (WBC) Count 13.6 thou/uL (4.8-10.8)
[2020-12-26 04:10] LABS: ALT (SGPT) 19 U/L (8-55); AST (SGOT) 21 U/L (5-34); Albumin 3.5 g/dL (3.5-5.0); Alkaline Phosphatase 91 U/L (40-110); Anion Gap 16 mmol/L (10-20); BUN (Urea Nitrogen) 40 mg/dL (9.8-20.1); Bilirubin, Total 0.9 mg/dL (0.2-1.2); Calc. Creatinine Clearance 72 mL/min (70-130); Calcium 9.3 mg/dL (7.8-10.44); Carbon Dioxide 25 mmol/L (22-29); Chloride 103 mmol/L (98-107); Globulin 3.1 g/dL (2.4-3.5); Glucose 128 mg/dL (70-105); Potassium 5.1 mmol/L (3.5-5.1); Protein, Total 6.6 g/dL (6.0-8.3); Sodium 139 mmol/L (136-145)
[2020-12-26] MEDS: HumaLOG 300 UNITS/3 ML VIAL SC PRN (06:15)
[2020-12-26] MEDS: Mometasone 200 MCG/Formoterol 5 MCG 120 PUFF INHALER INH SCH ×2 (06:48→19:09)
[2020-12-26] MEDS: Digoxin 0.125 MG TAB PO SCH (08:48)
[2020-12-26] MEDS: Enoxaparin Sodium 80 MG/0.8 ML SYRINGE SC SCH ×2 (08:48→20:24)
[2020-12-26] MEDS: TREPROSTINIL DIOLAMINE 0.125 MG PO SCH ×3 (08:49→20:24)
[2020-12-26] MEDS: Gabapentin 300 MG CAP PO SCH ×3 (08:49→20:23)
[2020-12-26] MEDS: metFORMIN 500 MG TAB PO SCH ×2 (08:49→17:14)
[2020-12-26] MEDS: Letrozole 2.5 MG TAB PO SCH (08:56)
[2020-12-26] MEDS: Atorvastatin Calcium 40 MG TAB PO SCH (08:56)
[2020-12-26] MEDS: Empagliflozin 10 MG TAB PO SCH (10:57)
[2020-12-26] MEDS: Acetaminophen 325 MG TAB PO PRN ×2 (11:52→22:32)
[2020-12-27 03:59] LABS: ALT (SGPT) 22 U/L (8-55); AST (SGOT) 20 U/L (5-34); Albumin 3.2 g/dL (3.5-5.0); Alkaline Phosphatase 86 U/L (40-110); Anion Gap 15 mmol/L (10-20); BUN (Urea Nitrogen) 33 mg/dL (9.8-20.1); Bilirubin, Total 0.9 mg/dL (0.2-1.2); Calc. Creatinine Clearance 88 mL/min (70-130); Calcium 8.9 mg/dL (7.8-10.44); Carbon Dioxide 22 mmol/L (22-29); Chloride 102 mmol/L (98-107); Globulin 2.7 g/dL (2.4-3.5); Glucose 94 mg/dL (70-105); Potassium 4.9 mmol/L (3.5-5.1); Protein, Total 5.9 g/dL (6.0-8.3); Sodium 134 mmol/L (136-145)
[2020-12-27 04:30] LABS: Band 4 % (5-11); Hemoglobin 14.4 g/dL (12.0-16.0); Lymphocytes 8 % (21-51); MDiff Complete? YES; Mean Corpuscular HGB CONC 27.5 g/dL (32.0-36.0); Mean Corpuscular Volume 79.9 fL (78.0-98.0); Mean Platelet Volume 5.8 fL (7.4-10.4); Monocytes 8 % (0-10); Neutrophil 80 % (42-75); Platelet Count 260 thou/uL (130-400); Platelet Morphology Comment Appears Adequate; RBC Distribution Width 25.3 % (11.5-14.5); RBC Morphology Normal; Red Blood Cell (RBC) Count 6.54 mill/uL (4.20-5.40); White Blood Cell (WBC) Count 15.2 thou/uL (4.8-10.8)
[2020-12-27] MEDS: Acetaminophen 325 MG TAB PO PRN ×2 (05:56→19:17)
[2020-12-27] MEDS: Mometasone 200 MCG/Formoterol 5 MCG 120 PUFF INHALER INH SCH ×2 (07:08→21:33)
[2020-12-27] MEDS ORDERED: Methotrexate Sodium 2.5 MG TAB PO SCH (09:00)
[2020-12-27] MEDS: Atorvastatin Calcium 40 MG TAB PO SCH (09:12)
[2020-12-27] MEDS: predniSONE 20 MG TAB PO SCH (09:12)
[2020-12-27] MEDS: metFORMIN 500 MG TAB PO SCH ×2 (09:12→16:06)
[2020-12-27] MEDS: Digoxin 0.125 MG TAB PO SCH (09:12)
[2020-12-27] MEDS: TREPROSTINIL DIOLAMINE 0.125 MG PO SCH ×3 (09:13→21:25)
[2020-12-27] MEDS: Empagliflozin 10 MG TAB PO SCH (09:13)
[2020-12-27] MEDS: Gabapentin 300 MG CAP PO SCH ×3 (09:13→21:16)
[2020-12-27] MEDS: Letrozole 2.5 MG TAB PO SCH (09:13)
[2020-12-27] MEDS: Enoxaparin Sodium 80 MG/0.8 ML SYRINGE SC SCH ×2 (09:14→21:16)
[2020-12-28] MEDS: Acetaminophen 325 MG TAB PO PRN ×2 (03:08→15:05)
[2020-12-28 06:44] LABS: #Eosinphils 0.1 thou/uL (0.0-0.7); #Lymphocytes 0.8 thou/uL (1.20-3.40); #Monocytes 1.4 thou/uL (0.11-0.59); #Neutrophils 14.4 thou/uL (1.40-6.50); %Basophils 0.1 % (0.0-1.0); %Eosinophils 0.5 % (0.0-10.0); %Lymphocytes 4.8 % (21.0-51.0); %Monocytes 8.1 % (0.0-10.0); %Neutrophils 86.5 % (42.0-75.0); Hemoglobin 14.5 g/dL (12.0-16.0); Mean Corpuscular HGB CONC 26.6 g/dL (32.0-36.0); Mean Corpuscular Hemoglobin 21.1 pg (27.0-31.0); Mean Corpuscular Volume 79.5 fL (78.0-98.0); Mean Platelet Volume 6.1 fL (7.4-10.4); Platelet Count 213 thou/uL (130-400); RBC Distribution Width 24.7 % (11.5-14.5); Red Blood Cell (RBC) Count 6.88 mill/uL (4.20-5.40); White Blood Cell (WBC) Count 16.7 thou/uL (4.8-10.8)
[2020-12-28 06:59] LABS: Albumin 3.4 g/dL (3.5-5.0)
[2020-12-28 07:01] LABS: Calcium 8.8 mg/dL (7.8-10.44); Chloride 103 mmol/L (98-107); Potassium 4.4 mmol/L (3.5-5.1); Sodium 138 mmol/L (136-145)
[2020-12-28 07:02] LABS: Globulin 2.7 g/dL (2.4-3.5); Glucose 123 mg/dL (70-105); Protein, Total 6.1 g/dL (6.0-8.3)
[2020-12-28 07:03] LABS: Anion Gap 13 mmol/L (10-20); Carbon Dioxide 26 mmol/L (22-29)
[2020-12-28 07:04] LABS: Bilirubin, Total 1.1 mg/dL (0.2-1.2)
[2020-12-28 07:05] LABS: Alkaline Phosphatase 88 U/L (40-110); Calc. Creatinine Clearance 90 mL/min (70-130)
[2020-12-28 07:06] LABS: BUN (Urea Nitrogen) 26 mg/dL (9.8-20.1)
[2020-12-28 07:07] LABS: AST (SGOT) 18 U/L (5-34)
[2020-12-28 07:08] LABS: ALT (SGPT) 21 U/L (8-55)
[2020-12-28] MEDS: Mometasone 200 MCG/Formoterol 5 MCG 120 PUFF INHALER INH SCH ×2 (07:49→18:38)
[2020-12-28] MEDS: predniSONE 20 MG TAB PO SCH (08:03)
[2020-12-28] MEDS: Gabapentin 300 MG CAP PO SCH ×3 (08:03→20:18)
[2020-12-28] MEDS: metFORMIN 500 MG TAB PO SCH ×2 (08:03→16:59)
[2020-12-28] MEDS: Digoxin 0.125 MG TAB PO SCH (08:03)
[2020-12-28] MEDS: TREPROSTINIL DIOLAMINE 0.125 MG PO SCH ×3 (08:04→20:20)
[2020-12-28] MEDS: Letrozole 2.5 MG TAB PO SCH (08:04)
[2020-12-28] MEDS: Empagliflozin 10 MG TAB PO SCH (08:04)
[2020-12-28] MEDS: Atorvastatin Calcium 40 MG TAB PO SCH (08:04)
[2020-12-28] MEDS: Enoxaparin Sodium 80 MG/0.8 ML SYRINGE SC SCH (08:05)
[2020-12-29] MEDS: Acetaminophen 325 MG TAB PO PRN ×2 (03:48→20:48)
[2020-12-29 03:50] LABS: #Eosinphils 0.1 thou/uL (0.0-0.7); #Lymphocytes 0.7 thou/uL (1.20-3.40); #Monocytes 0.8 thou/uL (0.11-0.59); #Neutrophils 13.9 thou/uL (1.40-6.50); %Eosinophils 0.5 % (0.0-10.0); %Lymphocytes 4.3 % (21.0-51.0); %Monocytes 4.9 % (0.0-10.0); %Neutrophils 90.2 % (42.0-75.0); Hemoglobin 14.4 g/dL (12.0-16.0); Mean Corpuscular HGB CONC 27.7 g/dL (32.0-36.0); Mean Corpuscular Volume 79.4 fL (78.0-98.0); Mean Platelet Volume 6.9 fL (7.4-10.4); Platelet Count 180 thou/uL (130-400); RBC Distribution Width 24.4 % (11.5-14.5); Red Blood Cell (RBC) Count 6.55 mill/uL (4.20-5.40); White Blood Cell (WBC) Count 15.4 thou/uL (4.8-10.8)
[2020-12-29 04:05] LABS: ALT (SGPT) 22 U/L (8-55); AST (SGOT) 20 U/L (5-34); Albumin 3.3 g/dL (3.5-5.0); Alkaline Phosphatase 87 U/L (40-110); Anion Gap 15 mmol/L (10-20); BUN (Urea Nitrogen) 29 mg/dL (9.8-20.1); Bilirubin, Total 1.5 mg/dL (0.2-1.2); Calc. Creatinine Clearance 91 mL/min (70-130); Carbon Dioxide 27 mmol/L (22-29); Chloride 100 mmol/L (98-107); Globulin 2.8 g/dL (2.4-3.5); Glucose 94 mg/dL (70-105); Potassium 4.7 mmol/L (3.5-5.1); Protein, Total 6.1 g/dL (6.0-8.3); Sodium 137 mmol/L (136-145)
[2020-12-29] MEDS: predniSONE 20 MG TAB PO SCH (07:26)
[2020-12-29] MEDS: Digoxin 0.125 MG TAB PO SCH (07:26)
[2020-12-29] MEDS: Gabapentin 300 MG CAP PO SCH ×3 (07:26→20:48)
[2020-12-29] MEDS: Atorvastatin Calcium 40 MG TAB PO SCH (07:26)
[2020-12-29] MEDS: Rivaroxaban 10 MG TAB PO SCH (07:27)
[2020-12-29] MEDS: metFORMIN 500 MG TAB PO SCH ×2 (07:27→15:39)
[2020-12-29] MEDS: Empagliflozin 10 MG TAB PO SCH (07:27)
[2020-12-29] MEDS: TREPROSTINIL DIOLAMINE 0.125 MG PO SCH ×3 (07:38→16:35)
[2020-12-29] MEDS: Letrozole 2.5 MG TAB PO SCH (07:38)
[2020-12-29] MEDS: Mometasone 200 MCG/Formoterol 5 MCG 120 PUFF INHALER INH SCH ×2 (08:17→20:26)
[2020-12-29] MEDS ORDERED: Loperamide HCl 2 MG CAP PO PRN (13:07)
[2020-12-30 04:11] LABS: Hemoglobin 14.1 g/dL (12.0-16.0); Mean Corpuscular HGB CONC 27.6 g/dL (32.0-36.0); Mean Corpuscular Hemoglobin 22.1 pg (27.0-31.0); Mean Platelet Volume 6.7 fL (7.4-10.4); Platelet Count 187 thou/uL (130-400); RBC Distribution Width 25.1 % (11.5-14.5); Red Blood Cell (RBC) Count 6.38 mill/uL (4.20-5.40); White Blood Cell (WBC) Count 13.9 thou/uL (4.8-10.8)
[2020-12-30 04:20] LABS: ALT (SGPT) 19 U/L (8-55); AST (SGOT) 18 U/L (5-34); Albumin 3.3 g/dL (3.5-5.0); Alkaline Phosphatase 86 U/L (40-110); Anion Gap 17 mmol/L (10-20); BUN (Urea Nitrogen) 32 mg/dL (9.8-20.1); Bilirubin, Total 1.3 mg/dL (0.2-1.2); Calc. Creatinine Clearance 74 mL/min (70-130); Calcium 9.1 mg/dL (7.8-10.44); Carbon Dioxide 24 mmol/L (22-29); Chloride 99 mmol/L (98-107); Glucose 109 mg/dL (70-105); Potassium 4.9 mmol/L (3.5-5.1); Protein, Total 6.3 g/dL (6.0-8.3); Sodium 135 mmol/L (136-145)
[2020-12-30 04:27] LABS: #Eosinphils 0.1 thou/uL (0.0-0.7); #Lymphocytes 0.7 thou/uL (1.20-3.40); #Monocytes 0.6 thou/uL (0.11-0.59); #Neutrophils 12.4 thou/uL (1.40-6.50); %Basophils 0.2 % (0.0-1.0); %Eosinophils 0.7 % (0.0-10.0); %Lymphocytes 5.1 % (21.0-51.0); %Monocytes 4.6 % (0.0-10.0); %Neutrophils 89.4 % (42.0-75.0); Lymphocytes 3 % (21-51); MDiff Complete? YES; Monocytes 2 % (0-10); Neutrophil 95 % (42-75); Platelet Morphology Comment Appears Adequate
[2020-12-30] MEDS: Mometasone 200 MCG/Formoterol 5 MCG 120 PUFF INHALER INH SCH ×2 (07:16→19:52)
[2020-12-30] MEDS: Rivaroxaban 10 MG TAB PO SCH (09:42)
[2020-12-30] MEDS: Atorvastatin Calcium 40 MG TAB PO SCH (09:42)
[2020-12-30] MEDS: metFORMIN 500 MG TAB PO SCH ×2 (09:42→16:47)
[2020-12-30] MEDS: predniSONE 20 MG TAB PO SCH (09:42)
[2020-12-30] MEDS: Gabapentin 300 MG CAP PO SCH ×3 (09:42→20:55)
[2020-12-30] MEDS: Digoxin 0.125 MG TAB PO SCH (09:43)
[2020-12-30] MEDS: TREPROSTINIL DIOLAMINE 0.125 MG PO SCH ×3 (09:44→20:55)
[2020-12-30] MEDS: Empagliflozin 10 MG TAB PO SCH (09:46)
[2020-12-30] MEDS: Letrozole 2.5 MG TAB PO SCH (09:47)
[2020-12-30 12:46] VITALS: BMI 27.2
[2020-12-30] MEDS: methylPREDNISolone Sod Succ 40 MG VIAL IVP SCH ×3 (13:16→23:29)
[2020-12-31 04:23] LABS: Actual Bicarbonate (HCO3a) 25.7 mEq/L (22-28); Base Excess (BEa) -5.8 mEq/L (-2.0 to +3.0); Calcium, Ionized (arterial) 1.27 mmol/L (1.12-1.30); Carboxyhemoglobin (COHb) 0.1 gm% (0.0-3.0); Hemoglobin (Hb) 14.6 g/dL (12.0-16.0); Potassium - ABG Lab 6.33 mmol/L (3.70-5.30)
[2020-12-31] MEDS ORDERED: Sodium Bicarb 50 MEQ/50 ML Abboject 8.4% SYRINGE ONE (04:41)
[2020-12-31 05:10] LABS: CO2 Tension 82.5 mmHg (35.0-45.0); pH, Arterial 7.11 (7.35-7.45)
[2020-12-31 05:11] LABS: ALV-art Gradient 590.875 mmHg (0-20); Puncture Site LRA
[2020-12-31] MEDS ORDERED: Sodium Bicarb 50 MEQ/50 ML Abboject 8.4% SYRINGE IVP SCH (06:00)
[2020-12-31] MEDS: methylPREDNISolone Sod Succ 40 MG VIAL IVP SCH ×3 (06:00→17:49)
[2020-12-31] MEDS: Mometasone 200 MCG/Formoterol 5 MCG 120 PUFF INHALER INH SCH ×2 (07:10→19:02)
[2020-12-31] MEDS ORDERED: Morphine 2 MG/ML VIAL SLOW IVP SCH (09:45)
[2020-12-31] MEDS: Gabapentin 300 MG CAP PO SCH ×3 (10:10→21:10)
[2020-12-31] MEDS: metFORMIN 500 MG TAB PO SCH ×2 (10:10→17:37)
[2020-12-31] MEDS: Atorvastatin Calcium 40 MG TAB PO SCH (10:10)
[2020-12-31] MEDS: Rivaroxaban 10 MG TAB PO SCH (10:10)
[2020-12-31] MEDS: Digoxin 0.125 MG TAB PO SCH (10:11)
[2020-12-31] MEDS: Letrozole 2.5 MG TAB PO SCH (10:12)
[2020-12-31] MEDS: TREPROSTINIL DIOLAMINE 0.125 MG PO SCH ×3 (10:14→21:11)
[2020-12-31 10:21] VITALS: BP 118/68
[2020-12-31] MEDS: Empagliflozin 10 MG TAB PO SCH (10:50)
[2020-12-31] MEDS: Azithromycin 500 MG in Sodium Chloride 0.9% 250 ML 250 ML IVPB SCH (12:12)
[2020-12-31 14:01] LABS: Actual Bicarbonate (HCO3a) 26.9 mEq/L (22-28); Base Excess (BEa) -8.8 mEq/L (-2.0 to +3.0); Calcium, Ionized (arterial) 1.17 mmol/L (1.12-1.30); Carboxyhemoglobin (COHb) 0.3 gm% (0.0-3.0); Hemoglobin (Hb) 14.7 g/dL (12.0-16.0); Potassium - ABG Lab 6.89 mmol/L (3.70-5.30)
[2020-12-31 14:02] LABS: CO2 Tension 128.3 mmHg (35.0-45.0); O2 Tension (PaO2), arterial 25.1 mmHg (80.0-100.0); pH, Arterial 6.94 (7.35-7.45)
[2020-12-31 14:03] LABS: Puncture Site RFA
[2020-12-31 14:04] LABS: ALV-art Gradient 527.525 mmHg (0-20)
[2020-12-31] MEDS: Cefepime 1 GM in Sodium Chloride 0.9% 100 ML IVPB SCH (20:23)
[2020-12-31] MEDS: Vancomycin 1 GM in Premix Bag 1 BAG IVPB SCH (20:58)
[2020-12-31] MEDS: Sodium Chloride 0.9% 1,000 ML IV SCH (20:59)
[2020-12-31 22:19] LABS: Digoxin 1.25 ng/mL (0.8-2.0)
[2021-01-01] MEDS: methylPREDNISolone Sod Succ 40 MG VIAL IVP SCH ×3 (00:30→12:42)
[2021-01-01 04:29] LABS: Anisocytosis MODERATE=16-30 cells (100X) (0-5/hpf); Band 3 % (5-11); Hemoglobin 14.6 g/dL (12.0-16.0); Hypochromia SLIGHT = 6-15 cells (100X) (0-5/hpf); Lymphocytes 3 % (21-51); MDiff Complete? YES; Mean Corpuscular HGB CONC 28.4 g/dL (32.0-36.0); Mean Corpuscular Hemoglobin 22.6 pg (27.0-31.0); Mean Corpuscular Volume 79.7 fL (78.0-98.0); Mean Platelet Volume 6.9 fL (7.4-10.4); Microcytosis SLIGHT = 6-15 cells (100X) (0-5/hpf); Monocytes 3 % (0-10); Neutrophil 91 % (42-75); Platelet Count 215 thou/uL (130-400); RBC Distribution Width 25.3 % (11.5-14.5); Red Blood Cell (RBC) Count 6.45 mill/uL (4.20-5.40); White Blood Cell (WBC) Count 21.3 thou/uL (4.8-10.8)
[2021-01-01 04:30] LABS: ALT (SGPT) 453 U/L (8-55); AST (SGOT) 649 U/L (5-34); Albumin 3.6 g/dL (3.5-5.0); Alkaline Phosphatase 104 U/L (40-110); Anion Gap 24 mmol/L (10-20); BUN (Urea Nitrogen) 73 mg/dL (9.8-20.1); Bilirubin, Total 1.5 mg/dL (0.2-1.2); Calc. Creatinine Clearance 32 mL/min (70-130); Calcium 8.9 mg/dL (7.8-10.44); Carbon Dioxide 23 mmol/L (22-29); Chloride 97 mmol/L (98-107); Globulin 3.2 g/dL (2.4-3.5); Glucose 169 mg/dL (70-105); Potassium 5.9 mmol/L (3.5-5.1); Protein, Total 6.8 g/dL (6.0-8.3); Sodium 138 mmol/L (136-145)
[2021-01-01] MEDS: Mometasone 200 MCG/Formoterol 5 MCG 120 PUFF INHALER INH SCH (07:31)
[2021-01-01] MEDS: Atorvastatin Calcium 40 MG TAB PO SCH (07:41)
[2021-01-01] MEDS: metFORMIN 500 MG TAB PO SCH (07:41)
[2021-01-01] MEDS: Digoxin 0.125 MG TAB PO SCH (07:41)
[2021-01-01] MEDS: Gabapentin 300 MG CAP PO SCH (07:45)
[2021-01-01] MEDS: Empagliflozin 10 MG TAB PO SCH (07:45)
[2021-01-01] MEDS: TREPROSTINIL DIOLAMINE 0.125 MG PO SCH (07:46)
[2021-01-01] MEDS: Letrozole 2.5 MG TAB PO SCH (07:46)
[2021-01-01] MEDS: Rivaroxaban 10 MG TAB PO SCH (07:47)
[2021-01-01] MEDS ORDERED: Calcium Gluconate 4.6 MEQ in Sodium Chloride 0.9% 100 ML IVPB SCH (08:24)
[2021-01-01] MEDS ORDERED: Dextrose 50% Abboject 50 ML SYRINGE SLOW IVP PRN (08:24)
[2021-01-01] MEDS ORDERED: Insulin Regular 300 UNITS/3 ML VIAL SC SCH (08:30)
[2021-01-01] MEDS: Cefepime 1 GM in Sodium Chloride 0.9% 100 ML IVPB SCH (08:46)
[2021-01-01] MEDS: Vancomycin 1 GM in Premix Bag 1 BAG IVPB SCH (08:47)
[2021-01-01 08:58] LABS: Actual Bicarbonate (HCO3a) 21.9 mEq/L (22-28); Base Excess (BEa) -6.4 mEq/L (-2.0 to +3.0); CO2 Tension 54.6 mmHg (35.0-45.0); Carboxyhemoglobin (COHb) 0.9 gm% (0.0-3.0); Hemoglobin (Hb) 15.6 g/dL (12.0-16.0); Potassium - ABG Lab 6.02 mmol/L (3.70-5.30)
[2021-01-01 08:59] LABS: pH, Arterial 7.22 (7.35-7.45)
[2021-01-01 09:00] LABS: O2 Tension (PaO2), arterial 33.9 mmHg (80.0-100.0); Puncture Site RRA
[2021-01-01] MEDS: Sodium Chloride 0.9% 1,000 ML IV SCH (09:01)
[2021-01-01] MEDS ORDERED: Insulin Regular 300 UNITS/3 ML VIAL IVP SCH (09:45)
[2021-01-01] MEDS ORDERED: Dextrose 50% Abboject 50 ML SYRINGE SLOW IVP SCH (10:00)
[2021-01-01] MEDS: Azithromycin 500 MG in Sodium Chloride 0.9% 250 ML 250 ML IVPB SCH (10:45)
[2021-01-01 11:06] VITALS: TEMP 96.2
[2021-01-01 13:20] LABS: ALT (SGPT) 792 U/L (8-55); AST (SGOT) 1184 U/L (5-34); Albumin 3.5 g/dL (3.5-5.0); Alkaline Phosphatase 106 U/L (40-110); Anion Gap 26 mmol/L (10-20); BUN (Urea Nitrogen) 88 mg/dL (9.8-20.1); Bilirubin, Total 1.8 mg/dL (0.2-1.2); Calc. Creatinine Clearance 28 mL/min (70-130); Calcium 8.5 mg/dL (7.8-10.44); Carbon Dioxide 21 mmol/L (22-29); Chloride 99 mmol/L (98-107); Glucose 231 mg/dL (70-105); Potassium 6.3 mmol/L (3.5-5.1); Protein, Total 6.5 g/dL (6.0-8.3); Sodium 140 mmol/L (136-145)
[2021-01-01] MEDS ORDERED: Sodium Bicarb 50 MEQ/50 ML Abboject 8.4% SYRINGE ONE ×2 (13:21→13:25)
[2021-01-01] MEDS ORDERED: Atropine Sulfate 1 mg/10 ml Syringe ONE (13:21)
[2021-01-01] MEDS ORDERED: EPINEPHrine 1 MG/10 ML Abboject SYRINGE ONE (13:21)
== END 2021-01-01 13:42 | disposition expired | DRG 196 ==
LOC: ERS 15:51 → 2NO 19:19 → IMCU/EMU 12-25 06:32
PROVIDERS: ADMIT Anesthesiology; ATTEND Family Medicine
PROC: 5A09357 Assistance with Respiratory Ventilation, Less than 24 Consecutive Hours, Continuous Positive Airway Pressure (ICD-10-PCS; 2020-12-26)
PROC: 5A09457 Assistance with Respiratory Ventilation, 24-96 Consecutive Hours, Continuous Positive Airway Pressure (ICD-10-PCS; 2020-12-30)
PROC: 5A12012 Performance of Cardiac Output, Single, Manual (ICD-10-PCS; principal; 2020-12-31)
PROC: 3E033XZ Introduction of Vasopressor into Peripheral Vein, Percutaneous Approach (ICD-10-PCS; 2021-01-01)
DX: D86.0 Sarcoidosis of lung (principal); J96.21 Acute and chronic respiratory failure with hypoxia; J96.22 Acute and chronic respiratory failure with hypercapnia; N17.9 Acute kidney failure, unspecified; I48.92 Unspecified atrial flutter; I82.412 Acute embolism and thrombosis of left femoral vein; I47.1 Supraventricular tachycardia; Z20.822 Contact with and (suspected) exposure to COVID-19; E11.9 Type 2 diabetes mellitus without complications; I11.0 Hypertensive heart disease with heart failure; F41.9 Anxiety disorder, unspecified; F32.9 Major depressive disorder, single episode, unspecified; I27.29 Other secondary pulmonary hypertension; I50.813 Acute on chronic right heart failure; E66.9 Obesity, unspecified; I27.81 Cor pulmonale (chronic); J84.10 Pulmonary fibrosis, unspecified; R00.1 Bradycardia, unspecified; I46.9 Cardiac arrest, cause unspecified; Z86.718 Personal history of other venous thrombosis and embolism; Z91.018 Allergy to other foods; Z79.01 Long term (current) use of anticoagulants; Z79.84 Long term (current) use of oral hypoglycemic drugs; Z79.51 Long term (current) use of inhaled steroids; Z79.52 Long term (current) use of systemic steroids; Z79.899 Other long term (current) drug therapy; Z85.3 Personal history of malignant neoplasm of breast; Z68.28 Body mass index [BMI] 28.0-28.9, adult; Z76.82 Awaiting organ transplant status; E87.5 Hyperkalemia; I48.91 Unspecified atrial fibrillation; Z87.891 Personal history of nicotine dependence; Z84.89 Family history of other specified conditions; R74.01 Elevation of levels of liver transaminase levels
CPT/HCPCS: 36415; 36416; 36600; 70450; 71045; 71046; 71275; 72125; 80053; 80162; 80500; 82553; 82805; 83880; 84145; 84484; 85025; 85610; 85611; 85730; 85732; 93005; 93010; 93306; 93970; 94150; 94760; 96365; 96367; 96375; J0171; J0456; J0461; J0692; J0696; J1100; J1650; J1815; J1956; J2001; J2920; J3370; J3490; J7050; J7512; J7620; J8610; U0002